=== PATIENT | male | born 1955 | race Caucasian/White ===

== ENCOUNTER 2016-11-12 07:18 | Emergency (ER) | payer MEDICAID, OTHER ==
[~2016-11-12] VITALS: Ht 182.9 cm; Wt 86.4 kg
[~2016-11-12 07:18] MED LIST: DIVA250T25 PO; HYDR25TA PO
[2016-11-12] MEDS ORDERED: METH10 PO (07:22)
[2016-11-12] MEDS ORDERED: METHADONE HCL 10 MG TABLET PO ONE (08:00)
[2016-11-12 08:17] LABS: BASOPHILS # (AUTO) 0.02 K/uL (0.00-0.20); BASOPHILS % (AUTO) 0.4 % (0.0-2.0); EOSINOPHILS # (AUTO) 0.16 K/uL (0.00-0.70); EOSINOPHILS % (AUTO) 2.46 % (1.0-6.0); HEMATOCRIT 38.8 % (41-53); HEMOGLOBIN 12.4 g/dL (13.5-17.5); LYMPHOCYTES % (AUTO) 14.7 % (22.0-44.0); MEAN CORPUSCULAR HEMOGLOBIN 27.9 pg (26.0-34.0); MEAN CORPUSCULAR HGB CONC 32.1 G/dL (31.0-37.0); MEAN CORPUSCULAR VOLUME 87 fL (80-100); MONOCYTES # (AUTO) 0.6 K/uL (0.1-1.0); MONOCYTES % (AUTO) 9.5 % (2.0-9.0); NEUTROPHILS # (AUTO) 4.8 K/uL (1.8-7.7); PLATELET COUNT (AUTO) 319 K/uL (150-450); RED BLOOD CELL COUNT(AUTO) 4.46 MIL/uL (4.50-5.90); RED CELL DISTRIBUTION WIDTH 14.9 % (11.5-14.5); WHITE BLOOD COUNT (AUTO) 6.6 K/uL (4.5-11.0)
[2016-11-12 08:21] LABS: ANION GAP 9 mmol/L (8-16); CALCIUM, TOTAL 8.7 mg/dL (8.8-10.5); CARBON DIOXIDE 27 mmol/L (22-29); CHLORIDE 100 mmol/L (98-107); CREATININE 0.82 mg/dL (0.60-1.30); GLOMERULAR FILTR. RATE CALC > 60 mL/min (>60); POTASSIUM 3.7 mmol/L (3.5-5.1); SODIUM SERUM 136 mmol/L (136-145); UREA NITROGEN, BLOOD 16 mg/dL (7-18)
[2016-11-12 08:32] LABS: ALANINE AMINOTRANSFERASE 22 U/L (12-78); ALBUMIN 3.1 g/dL (3.4-5.0); ASPARTATE AMINOTRANSFERASE 19 U/L (15-37); BILIRUBIN,TOTAL 0.3 mg/dL (0.1-1.0); TOTAL PROTEIN, SERUM 7.4 g/dL (6.4-8.2); VALPROIC ACID 52 mcg/mL (50-100)
[2016-11-12] MEDS ORDERED: DIVALPROEX SODIUM 250 MG DR TABLET PO ONE (09:15)
[2016-11-12 09:21] LABS: ADD UA MICROSCOPIC NO; APPEARANCE,URINE CLEAR (CLEAR); GLUCOSE, URINE (UA) NEGATIVE (NEGATIVE); KETONES,URINE NEGATIVE (NEGATIVE); LEUKOCYTE ESTERASE ,URINE NEGATIVE (NEGATIVE); OCCULT BLOOD,URINE NEGATIVE (NEGATIVE); PH,URINE 6.5 (5.0-8.0); PROTEIN,URINE NEGATIVE (NEGATIVE)
[2016-11-12 09:23] VITALS: BP 164/92
== END 2016-11-12 09:42 | disposition home or self-care (01) ==
LOC: EMS 07:19
DX: R56.9 Unspecified convulsions (principal); G89.29 Other chronic pain; I10 Essential (primary) hypertension; F17.210 Nicotine dependence, cigarettes, uncomplicated; Z88.0 Allergy status to penicillin
CPT/HCPCS: 99284

== ENCOUNTER 2016-12-04 11:45 | Emergency (ER) | payer OTHER ==
[~2016-12-04] VITALS: Ht 182.9 cm; Wt 90.9 kg
[~2016-12-04 11:45] MED LIST changes: +METH10 PO
[2016-12-04] MEDS ORDERED: SODIUM CHLORIDE 0.9% 1,000 ML IV ONE (13:15)
[2016-12-04 13:42] LABS: BASOPHILS % (AUTO) 0.5 % (0.0-2.0); EOSINOPHILS % (AUTO) 2.2 % (1.0-6.0); HEMATOCRIT 33.5 % (41-53); HEMOGLOBIN 11.3 g/dL (13.5-17.5); LYMPHOCYTES # (AUTO) 0.9 K/uL (1.0-4.8); MEAN CORPUSCULAR HEMOGLOBIN 28.6 pg (26.0-34.0); MEAN CORPUSCULAR HGB CONC 33.6 G/dL (31.0-37.0); MEAN CORPUSCULAR VOLUME 85 fL (80-100); MONOCYTES # (AUTO) 0.5 K/uL (0.1-1.0); MONOCYTES % (AUTO) 7.8 % (2.0-9.0); NEUTROPHILS # (AUTO) 4.6 K/uL (1.8-7.7); NEUTROPHILS % (AUTO) 74.5 % (40.0-70.0); PLATELET COUNT (AUTO) 175 K/uL (150-450); RED BLOOD CELL COUNT(AUTO) 3.94 MIL/uL (4.50-5.90); RED CELL DISTRIBUTION WIDTH 15.9 % (11.5-14.5); WHITE BLOOD COUNT (AUTO) 6.1 K/uL (4.5-11.0)
[2016-12-04 13:51] LABS: ANION GAP 10 mmol/L (8-16); CALCIUM, TOTAL 8.9 mg/dL (8.8-10.5); CARBON DIOXIDE 27 mmol/L (22-29); CHLORIDE 111 mmol/L (98-107); CREATININE 0.91 mg/dL (0.60-1.30); GLOMERULAR FILTR. RATE CALC > 60 mL/min (>60); POTASSIUM 3.4 mmol/L (3.5-5.1); SODIUM SERUM 148 mmol/L (136-145); UREA NITROGEN, BLOOD 17 mg/dL (7-18)
[2016-12-04 13:53] LABS: PROTHROMBIN TIME 10.9 SEC (9.4-11.6)
[2016-12-04 14:16] LABS: ALANINE AMINOTRANSFERASE 35 U/L (12-78); ALBUMIN 3.6 g/dL (3.4-5.0); ASPARTATE AMINOTRANSFERASE 48 U/L (15-37); BILIRUBIN,TOTAL 0.9 mg/dL (0.1-1.0); CREATINE KINASE MB 23.1 ng/mL (0-5); CREATINE KINASE, TOTAL 1359 U/L (39-308)
[2016-12-04 16:37] LABS: APPEARANCE,URINE CLEAR (CLEAR); GLUCOSE, URINE (UA) NEGATIVE (NEGATIVE); KETONES,URINE NEGATIVE (NEGATIVE); LEUKOCYTE ESTERASE ,URINE NEGATIVE (NEGATIVE); OCCULT BLOOD,URINE NEGATIVE (NEGATIVE); PH,URINE 5.5 (5.0-8.0); PROTEIN,URINE NEGATIVE (NEGATIVE)
[2016-12-04 16:38] LABS: ADD UA MICROSCOPIC NO
[2016-12-04 16:45] VITALS: BP 169/89
== END 2016-12-04 17:32 | disposition home or self-care (01) ==
LOC: EMS 11:46
DX: S09.90XA Unspecified injury of head, initial encounter (principal); F17.210 Nicotine dependence, cigarettes, uncomplicated; I10 Essential (primary) hypertension; Z88.0 Allergy status to penicillin; W19.XXXA Unspecified fall, initial encounter; Y93.89 Activity, other specified; Y92.89 Other specified places as the place of occurrence of the external cause; Y99.8 Other external cause status
CPT/HCPCS: 36415; 70450; 72125; 80053; 80307; 81003; 82550; 82553; 85025; 85610; 85730; 93005; 96360; 99285; G0480; J7030

== ENCOUNTER 2017-02-17 10:55 | Inpatient (IN) | payer MEDICAID, OTHER ==
[~2017-02-17] VITALS: Ht 182.9 cm; Wt 85.2 kg
[~2017-02-17 10:55] MED LIST changes: +CLON-570 PO; -DIVA250T25 PO; +DULO60CA44 PO; +FERR325T22 PO; +GABA-531 PO; -HYDR25TA PO; -METH10 PO; +MIRT30 PO; +MVITFE PO
[2017-02-17 11:51] LABS: BASOPHILS % (AUTO) 0.4 % (0.0-2.0); EOSINOPHILS % (AUTO) 1.4 % (1.0-6.0); HEMATOCRIT 28.6 % (41-53); HEMOGLOBIN 9.5 g/dL (13.5-17.5); LYMPHOCYTES # (AUTO) 0.7 K/uL (1.0-4.8); LYMPHOCYTES % (AUTO) 11.5 % (22.0-44.0); MEAN CORPUSCULAR HEMOGLOBIN 28.6 pg (26.0-34.0); MEAN CORPUSCULAR HGB CONC 33.2 G/dL (31.0-37.0); MEAN CORPUSCULAR VOLUME 86 fL (80-100); MONOCYTES # (AUTO) 0.3 K/uL (0.1-1.0); MONOCYTES % (AUTO) 4.6 % (2.0-9.0); NEUTROPHILS # (AUTO) 5.3 K/uL (1.8-7.7); NEUTROPHILS % (AUTO) 82.1 % (40.0-70.0); PLATELET COUNT (AUTO) 304 K/uL (150-450); RED BLOOD CELL COUNT(AUTO) 3.32 MIL/uL (4.50-5.90); RED CELL DISTRIBUTION WIDTH 15.4 % (11.5-14.5); WHITE BLOOD COUNT (AUTO) 6.5 K/uL (4.5-11.0)
[2017-02-17 12:06] LABS: ANION GAP 7 mmol/L (8-16); CALCIUM, TOTAL 8.3 mg/dL (8.8-10.5); CARBON DIOXIDE 26 mmol/L (22-29); CHLORIDE 109 mmol/L (98-107); CREATININE 0.88 mg/dL (0.60-1.30); GLOMERULAR FILTR. RATE CALC > 60 mL/min (>60); POTASSIUM 3.3 mmol/L (3.5-5.1); SODIUM SERUM 142 mmol/L (136-145); UREA NITROGEN, BLOOD 11 mg/dL (7-18)
[2017-02-17 12:11] LABS: ALANINE AMINOTRANSFERASE 31 U/L (12-78); ALBUMIN 3.2 g/dL (3.4-5.0); ASPARTATE AMINOTRANSFERASE 22 U/L (15-37); BILIRUBIN,TOTAL 0.4 mg/dL (0.1-1.0); TOTAL PROTEIN, SERUM 6.5 g/dL (6.4-8.2)
[2017-02-17] MEDS ORDERED: CloNIDine HCL 0.1 MG TABLET PO ONE (14:30)
[2017-02-17] MEDS ORDERED: MAG HYDROX/AL HYDROX/SIMETH ES 30 ML SUSPENSION UDCUP PO PRN (15:00)
[2017-02-17] MEDS ORDERED: GuaiFENesin/D-METHORPHAN [SUGAR-FREE] 200-20MG/10 ML SYRUP UDCUP PO PRN (15:00)
[2017-02-17] MEDS ORDERED: CloNIDine HCL 0.1 MG TABLET PO PRN (15:00)
[2017-02-17] MEDS ORDERED: HydrOXYzine PAMOATE 50 MG CAPSULE PO PRN (15:00)
[2017-02-17] MEDS ORDERED: IBUPROFEN 600 MG TABLET PO PRN (15:00)
[2017-02-17] MEDS ORDERED: CYANOCOBALAMIN 1,000 MCG/ML VIAL IM ONE (15:00)
[2017-02-17] MEDS ORDERED: PROMETHAZINE HCL 25 MG/ML VIAL IM PRN (15:00)
[2017-02-17] MEDS ORDERED: LOPERAMIDE HCL 2 MG CAPSULE PO PRN (15:00)
[2017-02-17 16:25] VITALS: BP 151/79
[2017-02-17] MEDS: DULoxetine HCL 60 MG CAPSULE PO SCH (17:14)
[2017-02-17] MEDS: CloNIDine HCL 0.1 MG TABLET PO SCH ×2 (17:14→22:02)
[2017-02-17] MEDS: THIAMINE HCL 100 MG TABLET PO SCH (17:14)
[2017-02-17 17:25] VITALS: BP 140/80
[2017-02-17 18:32] VITALS: BP 145/70
[2017-02-17] MEDS: MIRTAZAPINE 30 MG TABLET PO SCH (20:14)
[2017-02-17 20:20] VITALS: BP 134/94
[2017-02-17] MEDS: HydrOXYzine PAMOATE 50 MG CAPSULE PO PRN (20:58)
[2017-02-17] MEDS ORDERED: GABAPENTIN 300 MG CAPSULE PO ONE (21:45)
[2017-02-17 22:00] VITALS: BP 175/79
[2017-02-18 00:45] VITALS: BP 147/77
[2017-02-18] MEDS: CloNIDine HCL 0.1 MG TABLET PO SCH ×4 (06:20→22:03)
[2017-02-18] MEDS ORDERED: POTASSIUM CHLORIDE 20 MEQ ER TABLET PO ONE (07:15)
[2017-02-18 08:44] VITALS: BP 153/83
[2017-02-18 08:45] VITALS: BP 153/83
[2017-02-18] MEDS: GABAPENTIN 300 MG CAPSULE PO SCH ×4 (09:51→20:40)
[2017-02-18] MEDS: MULTIVITAMINS WITH MINERALS, THERAPEUTIC TABLET PO SCH (09:52)
[2017-02-18] MEDS: DULoxetine HCL 60 MG CAPSULE PO SCH ×2 (09:52→16:03)
[2017-02-18] MEDS: THIAMINE HCL 100 MG TABLET PO SCH ×2 (09:52→16:36)
[2017-02-18] MEDS: SULFAMETHOX/TRIMETH DS 800-160 MG/TABLET PO SCH ×2 (09:52→16:03)
[2017-02-18] MEDS: DOXYCYCLINE 100 MG CAPSULE PO SCH ×2 (09:52→16:03)
[2017-02-18] MEDS: FOLIC ACID 1 MG TABLET PO SCH (09:52)
[2017-02-18 12:30] VITALS: BP 160/88
[2017-02-18 14:30] VITALS: BP 126/86
[2017-02-18 16:12] VITALS: BP 144/88
[2017-02-18] MEDS: MIRTAZAPINE 30 MG TABLET PO SCH (20:40)
[2017-02-19 01:20] VITALS: BP 141/83
[2017-02-19 01:21] VITALS: BP 141/83
[2017-02-19] MEDS: CloNIDine HCL 0.1 MG TABLET PO SCH ×4 (05:50→21:06)
[2017-02-19 08:35] VITALS: BP 146/81
[2017-02-19] MEDS: DOXYCYCLINE 100 MG CAPSULE PO SCH ×2 (08:59→17:17)
[2017-02-19] MEDS: THIAMINE HCL 100 MG TABLET PO SCH ×2 (08:59→17:17)
[2017-02-19] MEDS: GABAPENTIN 300 MG CAPSULE PO SCH ×4 (08:59→20:50)
[2017-02-19] MEDS: DULoxetine HCL 60 MG CAPSULE PO SCH ×2 (08:59→17:16)
[2017-02-19] MEDS: FOLIC ACID 1 MG TABLET PO SCH (08:59)
[2017-02-19] MEDS: SULFAMETHOX/TRIMETH DS 800-160 MG/TABLET PO SCH ×2 (08:59→17:17)
[2017-02-19] MEDS: MULTIVITAMINS WITH MINERALS, THERAPEUTIC TABLET PO SCH (08:59)
[2017-02-19 09:03] VITALS: BP 146/81
[2017-02-19 16:24] VITALS: BP 140/86
[2017-02-19 16:27] VITALS: BP 140/86
[2017-02-19] MEDS ORDERED: CloNIDine HCL 0.1 MG TABLET PO SCH (17:00)
[2017-02-19] MEDS: LevETIRAcetam 500 MG TABLET PO SCH (17:17)
[2017-02-19] MEDS: MIRTAZAPINE 30 MG TABLET PO SCH (20:50)
[2017-02-19] MEDS: HydrOXYzine PAMOATE 50 MG CAPSULE PO PRN (21:48)
[2017-02-20 00:52] VITALS: BP 130/75
[2017-02-20 00:53] VITALS: BP 130/75
[2017-02-20 06:00] VITALS: BP 140/72
[2017-02-20] MEDS: FERROUS SULFATE 325 MG EC TABLET PO SCH (06:37)
[2017-02-20] MEDS: CloNIDine HCL 0.1 MG TABLET PO SCH ×4 (06:37→22:01)
[2017-02-20 08:00] VITALS: BP 136/78
[2017-02-20 08:17] VITALS: BP 136/78
[2017-02-20] MEDS: DOXYCYCLINE 100 MG CAPSULE PO SCH ×2 (08:55→16:02)
[2017-02-20] MEDS: GABAPENTIN 300 MG CAPSULE PO SCH ×4 (08:55→20:36)
[2017-02-20] MEDS: FOLIC ACID 1 MG TABLET PO SCH (08:56)
[2017-02-20] MEDS: THIAMINE HCL 100 MG TABLET PO SCH ×2 (08:56→16:02)
[2017-02-20] MEDS: SULFAMETHOX/TRIMETH DS 800-160 MG/TABLET PO SCH ×2 (08:56→16:02)
[2017-02-20] MEDS: LevETIRAcetam 500 MG TABLET PO SCH ×2 (08:56→16:02)
[2017-02-20] MEDS: DULoxetine HCL 60 MG CAPSULE PO SCH ×2 (08:56→16:02)
[2017-02-20] MEDS: MULTIVITAMINS WITH MINERALS, THERAPEUTIC TABLET PO SCH (08:57)
[2017-02-20 16:00] VITALS: BP 140/79
[2017-02-20] MEDS: MIRTAZAPINE 30 MG TABLET PO SCH (20:36)
[2017-02-21 01:13] VITALS: BP 140/72
[2017-02-21 03:55] VITALS: BP 149/112
[2017-02-21] MEDS: HydrOXYzine PAMOATE 50 MG CAPSULE PO PRN (03:56)
[2017-02-21 06:02] VITALS: BP 147/96
[2017-02-21] MEDS: FERROUS SULFATE 325 MG EC TABLET PO SCH (06:24)
[2017-02-21] MEDS: CloNIDine HCL 0.1 MG TABLET PO SCH ×4 (06:24→21:03)
[2017-02-21] MEDS: FOLIC ACID 1 MG TABLET PO SCH (08:39)
[2017-02-21] MEDS: DOXYCYCLINE 100 MG CAPSULE PO SCH ×2 (08:39→16:27)
[2017-02-21] MEDS: SULFAMETHOX/TRIMETH DS 800-160 MG/TABLET PO SCH ×2 (08:39→16:27)
[2017-02-21] MEDS: LevETIRAcetam 500 MG TABLET PO SCH ×2 (08:40→16:27)
[2017-02-21] MEDS: THIAMINE HCL 100 MG TABLET PO SCH ×2 (08:40→16:27)
[2017-02-21] MEDS: GABAPENTIN 300 MG CAPSULE PO SCH ×4 (08:40→20:30)
[2017-02-21] MEDS: DULoxetine HCL 60 MG CAPSULE PO SCH ×2 (08:40→16:27)
[2017-02-21] MEDS: MULTIVITAMINS WITH MINERALS, THERAPEUTIC TABLET PO SCH (08:40)
[2017-02-21 08:52] VITALS: BP 128/84
[2017-02-21 17:00] VITALS: BP 115/68
[2017-02-21] MEDS: MIRTAZAPINE 30 MG TABLET PO SCH (20:30)
[2017-02-22 00:13] VITALS: BP 139/95
[2017-02-22 00:14] VITALS: BP 139/95
[2017-02-22 05:55] VITALS: BP 140/88
[2017-02-22] MEDS: CloNIDine HCL 0.1 MG TABLET PO SCH ×2 (06:07→12:46)
[2017-02-22] MEDS: FERROUS SULFATE 325 MG EC TABLET PO SCH (08:25)
[2017-02-22] MEDS: MULTIVITAMINS WITH MINERALS, THERAPEUTIC TABLET PO SCH (08:38)
[2017-02-22] MEDS: FOLIC ACID 1 MG TABLET PO SCH (08:39)
[2017-02-22] MEDS: GABAPENTIN 300 MG CAPSULE PO SCH ×2 (08:39→12:47)
[2017-02-22 08:42] VITALS: BP 135/77
[2017-02-22] MEDS: LevETIRAcetam 500 MG TABLET PO SCH (09:02)
[2017-02-22] MEDS: THIAMINE HCL 100 MG TABLET PO SCH (09:02)
[2017-02-22] MEDS: DOXYCYCLINE 100 MG CAPSULE PO SCH (09:02)
[2017-02-22] MEDS: DULoxetine HCL 60 MG CAPSULE PO SCH (09:02)
[2017-02-22] MEDS: SULFAMETHOX/TRIMETH DS 800-160 MG/TABLET PO SCH (09:02)
[2017-02-22] MEDS ORDERED: SULF1TAB42 PO (14:05)
[2017-02-22] MEDS ORDERED: LEVE500T53 PO (14:05)
[2017-02-22] MEDS ORDERED: DOXY100C PO (14:05)
[2017-02-22 14:32] VITALS: BP 135/77
== END 2017-02-22 14:15 | disposition home or self-care (01) | DRG 751 ==
LOC: EEVIPCON 10:59 → EMS 10:59 → B2S 15:30
PROVIDERS: ADMIT Psychiatry & Neurology Psychiatry; ATTEND Psychiatry & Neurology Psychiatry
DX: F33.2 Major depressive disorder, recurrent severe without psychotic features (principal); R45.851 Suicidal ideations; F11.20 Opioid dependence, uncomplicated; D64.9 Anemia, unspecified; I10 Essential (primary) hypertension; S50.312A Abrasion of left elbow, initial encounter; G40.909 Epilepsy, unspecified, not intractable, without status epilepticus; F41.9 Anxiety disorder, unspecified; F17.210 Nicotine dependence, cigarettes, uncomplicated; Z88.0 Allergy status to penicillin; Z59.0 Homelessness; Z80.9 Family history of malignant neoplasm, unspecified; Z91.5 Personal history of self-harm; F12.90 Cannabis use, unspecified, uncomplicated; R45.87 Impulsiveness; X58.XXXA Exposure to other specified factors, initial encounter; Y93.89 Activity, other specified; Y92.89 Other specified places as the place of occurrence of the external cause; Y99.8 Other external cause status
CPT/HCPCS: 84132; 87081; 96372; 99285; G0480; J3420

== ENCOUNTER 2017-03-26 14:31 | Emergency (ER) | payer MEDICAID, OTHER ==
[~2017-03-26] VITALS: Ht 182.9 cm; Wt 90.0 kg
[~2017-03-26 14:31] MED LIST changes: +DOXY100C PO; -FERR325T22 PO; +LEVE500T53 PO; -MVITFE PO; +SULF1TAB42 PO
[2017-03-26 15:12] LABS: BASOPHILS % (AUTO) 0.1 % (0.0-2.0); EOSINOPHILS % (AUTO) 5.5 % (1.0-6.0); HEMATOCRIT 30.2 % (41-53); HEMOGLOBIN 9.9 g/dL (13.5-17.5); LYMPHOCYTES # (AUTO) 1.2 K/uL (1.0-4.8); LYMPHOCYTES % (AUTO) 17.6 % (22.0-44.0); MEAN CORPUSCULAR HEMOGLOBIN 26.3 pg (26.0-34.0); MEAN CORPUSCULAR HGB CONC 32.9 G/dL (31.0-37.0); MEAN CORPUSCULAR VOLUME 80 fL (80-100); MONOCYTES # (AUTO) 0.6 K/uL (0.1-1.0); MONOCYTES % (AUTO) 8.9 % (2.0-9.0); NEUTROPHILS # (AUTO) 4.5 K/uL (1.8-7.7); NEUTROPHILS % (AUTO) 67.9 % (40.0-70.0); PLATELET COUNT (AUTO) 313 K/uL (150-450); RED BLOOD CELL COUNT(AUTO) 3.77 MIL/uL (4.50-5.90); RED CELL DISTRIBUTION WIDTH 16.8 % (11.5-14.5)
[2017-03-26 15:24] LABS: ANION GAP 7 mmol/L (8-16); CARBON DIOXIDE 29 mmol/L (22-29); CHLORIDE 106 mmol/L (98-107); CREATININE 0.84 mg/dL (0.60-1.30); GLOMERULAR FILTR. RATE CALC > 60 mL/min (>60); GLUCOSE,RANDOM 91 mg/dL (70-110); SODIUM SERUM 142 mmol/L (136-145); UREA NITROGEN, BLOOD 14 mg/dL (7-18)
[2017-03-26 15:29] LABS: ALANINE AMINOTRANSFERASE 27 U/L (12-78); ALBUMIN 3.2 g/dL (3.4-5.0); ALKALINE PHOSPHATASE 91 U/L (46-116); ASPARTATE AMINOTRANSFERASE 28 U/L (15-37); BILIRUBIN,TOTAL 0.5 mg/dL (0.1-1.0); TOTAL PROTEIN, SERUM 6.8 g/dL (6.4-8.2)
[2017-03-26 17:07] LABS: AMPHET/METH SCREEN,URINE NEGATIVE (NEGATIVE); BARBITURATE SCREEN, URINE NEGATIVE (NEGATIVE); BENZODIAZEPINES SCREEN,URINE POSITIVE (NEGATIVE); CANNABINOID SCREEN,URINE POSITIVE (NEGATIVE); COCAINE SCREEN,URINE NEGATIVE (NEGATIVE); METHADONE SCREEN, URINE POSITIVE (NEGATIVE); OPIATE SCREEN,URINE NEGATIVE (NEGATIVE)
[2017-03-26 17:09] LABS: PHENCYCLIDINE SCREEN,URINE NEGATIVE (NEGATIVE)
[2017-03-26 17:25] VITALS: BP 145/90
== END 2017-03-26 18:03 | disposition home or self-care (01) ==
LOC: EMS 14:31
DX: F43.9 Reaction to severe stress, unspecified (principal); F12.10 Cannabis abuse, uncomplicated; F41.9 Anxiety disorder, unspecified; I10 Essential (primary) hypertension; F17.210 Nicotine dependence, cigarettes, uncomplicated; Z88.0 Allergy status to penicillin
CPT/HCPCS: 36415; 80053; 80307; 85025; 99284; G0480

== ENCOUNTER 2017-05-08 16:52 | Inpatient (IN) | payer MEDICAID, OTHER ==
[~2017-05-08] VITALS: Ht 188 cm; Wt 93.0 kg
[2017-05-08 20:24] VITALS: BP 157/94
[2017-05-08] MEDS ORDERED: DIVALPROEX SODIUM 500 MG DR TABLET PO SCH (21:00)
[2017-05-08] MEDS: MIRTAZAPINE 15 MG TABLET PO SCH (21:46)
[2017-05-08] MEDS: CloNIDine HCL 0.1 MG TABLET PO SCH (21:46)
[2017-05-08 21:59] VITALS: BP 193/103
[2017-05-08 22:26] VITALS: BP 150/94
[2017-05-09 02:32] VITALS: BP 138/72
[2017-05-09 07:53] LABS: BASOPHILS % (AUTO) 0.4 % (0.0-2.0); HEMATOCRIT 32.2 % (41-53); HEMOGLOBIN 10.6 g/dL (13.5-17.5); LYMPHOCYTES # (AUTO) 1.9 K/uL (1.0-4.8); LYMPHOCYTES % (AUTO) 34.5 % (22.0-44.0); MEAN CORPUSCULAR HEMOGLOBIN 25.3 pg (26.0-34.0); MEAN CORPUSCULAR HGB CONC 32.9 G/dL (31.0-37.0); MEAN CORPUSCULAR VOLUME 77 fL (80-100); MONOCYTES # (AUTO) 0.6 K/uL (0.1-1.0); MONOCYTES % (AUTO) 11.2 % (2.0-9.0); NEUTROPHILS # (AUTO) 2.9 K/uL (1.8-7.7); NEUTROPHILS % (AUTO) 51.9 % (40.0-70.0); PLATELET COUNT (AUTO) 247 K/uL (150-450); RED BLOOD CELL COUNT(AUTO) 4.19 MIL/uL (4.50-5.90); RED CELL DISTRIBUTION WIDTH 19.2 % (11.5-14.5)
[2017-05-09 08:47] VITALS: BP 127/84
[2017-05-09 09:02] LABS: ALANINE AMINOTRANSFERASE 29 U/L (12-78); ALBUMIN 2.5 g/dL (3.4-5.0); ALKALINE PHOSPHATASE 64 U/L (46-116); ANION GAP 4 mmol/L (8-16); ASPARTATE AMINOTRANSFERASE 23 U/L (15-37); BILIRUBIN,TOTAL 0.4 mg/dL (0.1-1.0); CALCIUM, TOTAL 8.1 mg/dL (8.8-10.5); CARBON DIOXIDE 32 mmol/L (22-29); CHLORIDE 106 mmol/L (98-107); CHOL/HDL RATIO 3.7 (4.2-7.3); CHOLESTEROL 132 mg/dL (131-200); CREATININE 0.97 mg/dL (0.60-1.30); FREE T4 (FREE THYROXINE) 1.12 ng/dL (0.76-1.46); GLOMERULAR FILTR. RATE CALC > 60 mL/min (>60); GLUCOSE,RANDOM 80 mg/dL (70-110); HDL CHOLESTEROL 36 mg/dL (40-60); LDL CHOL (CALC.) 86 mg/dL (0-130); POTASSIUM 3.8 mmol/L (3.5-5.1); SODIUM SERUM 142 mmol/L (136-145); THYROID STIMULATING HORMONE 2.09 uIU/mL (0.36-3.74); TOTAL PROTEIN, SERUM 5.7 g/dL (6.4-8.2); TRIGLYCERIDES 48 mg/dL (15-150); UREA NITROGEN, BLOOD 15 mg/dL (7-18)
[2017-05-09] MEDS ORDERED: MAGNESIUM HYDROXIDE SUSPENSION 30 ML UDCUP PO PRN (09:15)
[2017-05-09] MEDS ORDERED: LOPERAMIDE HCL 2 MG CAPSULE PO PRN (09:15)
[2017-05-09] MEDS ORDERED: TUBERCULIN, PURIFIED PROTEIN DERIVATIVE 5 TU/0.1 ML SYG ID ONE (09:15)
[2017-05-09] MEDS ORDERED: ACETAMINOPHEN 325 MG TABLET PO PRN (09:15)
[2017-05-09] MEDS ORDERED: GuaiFENesin/D-METHORPHAN [SUGAR-FREE] 200-20MG/10 ML SYRUP UDCUP PO PRN (09:15)
[2017-05-09] MEDS ORDERED: PROMETHAZINE HCL 25 MG TABLET PO PRN (09:15)
[2017-05-09] MEDS ORDERED: MAG HYDROX/AL HYDROX/SIMETH ES 30 ML SUSPENSION UDCUP PO PRN (09:15)
[2017-05-09] MEDS: DULoxetine HCL 20 MG CAPSULE PO SCH (09:27)
[2017-05-09] MEDS: CloNIDine HCL 0.1 MG TABLET PO SCH ×2 (09:27→16:10)
[2017-05-09 09:56] LABS: HEMOGLOBIN A1C 6.1 % (4.5-6.2)
[2017-05-09] MEDS: METHADONE HCL 10 MG TABLET PO SCH (11:09)
[2017-05-09] MEDS: LORazepam 2 MG TABLET PO PRN ×2 (11:10→16:19)
[2017-05-09 11:13] VITALS: BP 157/91
[2017-05-09] MEDS: ACAMPROSATE CALCIUM 333 MG DR TABLET PO SCH ×2 (13:42→16:10)
[2017-05-09] MEDS: GABAPENTIN 300 MG CAPSULE PO SCH ×2 (16:11→20:22)
[2017-05-09] MEDS: THIAMINE HCL 100 MG TABLET PO SCH (16:11)
[2017-05-09 16:26] VITALS: BP 142/87
[2017-05-09] MEDS ORDERED: GABAPENTIN 300 MG CAPSULE PO SCH (17:00)
[2017-05-09] MEDS: MIRTAZAPINE 15 MG TABLET PO SCH (20:22)
[2017-05-10 00:36] VITALS: BP 133/69
[2017-05-10] MEDS: ACAMPROSATE CALCIUM 333 MG DR TABLET PO SCH ×3 (08:25→16:05)
[2017-05-10] MEDS: CloNIDine HCL 0.1 MG TABLET PO SCH ×2 (08:25→16:05)
[2017-05-10] MEDS: GABAPENTIN 300 MG CAPSULE PO SCH ×3 (08:25→16:05)
[2017-05-10] MEDS: MULTIVITAMINS WITH MINERALS, THERAPEUTIC TABLET PO SCH (08:25)
[2017-05-10] MEDS: METHADONE HCL 10 MG TABLET PO SCH (08:25)
[2017-05-10] MEDS: DULoxetine HCL 20 MG CAPSULE PO SCH (08:25)
[2017-05-10] MEDS: THIAMINE HCL 100 MG TABLET PO SCH ×2 (08:25→16:05)
[2017-05-10 08:47] VITALS: BP 117/65
[2017-05-10] MEDS ORDERED: NALTREXONE HCL 50 MG TABLET PO SCH (09:00)
[2017-05-10 16:13] VITALS: BP 138/74
[2017-05-10] MEDS: MIRTAZAPINE 30 MG TABLET PO SCH (20:19)
[2017-05-10] MEDS: GABAPENTIN 400 MG CAPSULE PO SCH (20:21)
[2017-05-11 02:36] VITALS: BP 120/68
[2017-05-11] MEDS: ZOLPIDEM TARTRATE 10 MG TABLET PO PRN ×2 (02:38→20:49)
[2017-05-11 08:36] VITALS: BP 138/91
[2017-05-11] MEDS: THIAMINE HCL 100 MG TABLET PO SCH ×2 (08:38→16:02)
[2017-05-11] MEDS: METHADONE HCL 10 MG TABLET PO SCH (08:38)
[2017-05-11] MEDS: CloNIDine HCL 0.1 MG TABLET PO SCH ×2 (08:38→16:02)
[2017-05-11] MEDS: GABAPENTIN 400 MG CAPSULE PO SCH ×4 (08:38→20:02)
[2017-05-11] MEDS: MULTIVITAMINS WITH MINERALS, THERAPEUTIC TABLET PO SCH (08:38)
[2017-05-11] MEDS: DULoxetine HCL 20 MG CAPSULE PO SCH (08:38)
[2017-05-11] MEDS: ACAMPROSATE CALCIUM 333 MG DR TABLET PO SCH ×3 (08:39→16:21)
[2017-05-11] MEDS: HydrOXYzine PAMOATE 50 MG CAPSULE PO PRN ×2 (10:08→16:21)
[2017-05-11] MEDS: OLANZapine 5 MG RAPDIS TABLET PO PRN (10:09)
[2017-05-11 16:35] VITALS: BP 158/88
[2017-05-11] MEDS: AmLODIPine BESYLATE 10 MG TABLET PO SCH (18:08)
[2017-05-11] MEDS: MIRTAZAPINE 30 MG TABLET PO SCH (20:02)
[2017-05-11 21:53] VITALS: BP 146/67
[2017-05-12 00:39] VITALS: BP 134/74
[2017-05-12] MEDS: GABAPENTIN 400 MG CAPSULE PO SCH ×4 (08:04→20:13)
[2017-05-12] MEDS: MULTIVITAMINS WITH MINERALS, THERAPEUTIC TABLET PO SCH (08:05)
[2017-05-12] MEDS: ACAMPROSATE CALCIUM 333 MG DR TABLET PO SCH ×3 (08:05→16:12)
[2017-05-12] MEDS: AmLODIPine BESYLATE 10 MG TABLET PO SCH (08:05)
[2017-05-12] MEDS: THIAMINE HCL 100 MG TABLET PO SCH ×2 (08:06→16:11)
[2017-05-12] MEDS: CloNIDine HCL 0.1 MG TABLET PO SCH ×2 (08:06→16:11)
[2017-05-12] MEDS: METHADONE HCL 10 MG TABLET PO SCH (08:06)
[2017-05-12 08:42] VITALS: BP 161/72
[2017-05-12] MEDS ORDERED: DULoxetine HCL 20 MG CAPSULE PO SCH (09:00)
[2017-05-12] MEDS: HydrOXYzine PAMOATE 50 MG CAPSULE PO PRN ×2 (12:08→16:12)
[2017-05-12 16:22] VITALS: BP 126/76
[2017-05-12] MEDS: MIRTAZAPINE 30 MG TABLET PO SCH (20:13)
[2017-05-12] MEDS: ZOLPIDEM TARTRATE 10 MG TABLET PO PRN (20:15)
[2017-05-12] MEDS: OLANZapine 5 MG RAPDIS TABLET PO PRN (21:58)
[2017-05-13 02:14] VITALS: BP 121/70
[2017-05-13 08:04] VITALS: BP 172/76
[2017-05-13] MEDS: ACAMPROSATE CALCIUM 333 MG DR TABLET PO SCH ×3 (08:25→16:15)
[2017-05-13] MEDS: CloNIDine HCL 0.1 MG TABLET PO SCH ×2 (08:26→16:15)
[2017-05-13] MEDS: LISINOPRIL 10 MG TABLET PO SCH (08:26)
[2017-05-13] MEDS: METHADONE HCL 10 MG TABLET PO SCH (08:26)
[2017-05-13] MEDS: AmLODIPine BESYLATE 10 MG TABLET PO SCH (08:26)
[2017-05-13] MEDS: GABAPENTIN 400 MG CAPSULE PO SCH ×4 (08:26→20:30)
[2017-05-13] MEDS: MULTIVITAMINS WITH MINERALS, THERAPEUTIC TABLET PO SCH (08:26)
[2017-05-13] MEDS: DULoxetine HCL 60 MG CAPSULE PO SCH (08:26)
[2017-05-13] MEDS: THIAMINE HCL 100 MG TABLET PO SCH ×2 (08:26→16:15)
[2017-05-13 09:22] VITALS: BP 130/72
[2017-05-13] MEDS: OLANZapine 5 MG RAPDIS TABLET PO PRN (10:54)
[2017-05-13 16:09] VITALS: BP 124/81
[2017-05-13] MEDS: HydrOXYzine PAMOATE 50 MG CAPSULE PO PRN (16:13)
[2017-05-13] MEDS: MIRTAZAPINE 30 MG TABLET PO SCH (20:30)
[2017-05-13] MEDS: ZOLPIDEM TARTRATE 10 MG TABLET PO PRN (20:37)
[2017-05-14 00:01] VITALS: BP 125/80
[2017-05-14] MEDS: GABAPENTIN 300 MG CAPSULE PO PRN ×2 (00:23→05:22)
[2017-05-14] MEDS: OLANZapine 5 MG RAPDIS TABLET PO PRN ×2 (04:09→21:25)
[2017-05-14 05:18] VITALS: BP 148/89
[2017-05-14 08:26] VITALS: BP_SYST 148; BP_SYST 161; BP_DIAS 72; BP_DIAS 87
[2017-05-14] MEDS: MULTIVITAMINS WITH MINERALS, THERAPEUTIC TABLET PO SCH (08:46)
[2017-05-14] MEDS: DULoxetine HCL 60 MG CAPSULE PO SCH (08:46)
[2017-05-14] MEDS: METHADONE HCL 10 MG TABLET PO SCH (08:46)
[2017-05-14] MEDS: GABAPENTIN 400 MG CAPSULE PO SCH ×5 (08:46→21:00)
[2017-05-14] MEDS: AmLODIPine BESYLATE 10 MG TABLET PO SCH (08:46)
[2017-05-14] MEDS: ACAMPROSATE CALCIUM 333 MG DR TABLET PO SCH ×3 (08:46→16:24)
[2017-05-14] MEDS: CloNIDine HCL 0.1 MG TABLET PO SCH ×2 (08:46→16:23)
[2017-05-14] MEDS: LISINOPRIL 10 MG TABLET PO SCH (08:46)
[2017-05-14] MEDS: THIAMINE HCL 100 MG TABLET PO SCH ×2 (08:46→16:24)
[2017-05-14 16:40] VITALS: BP 120/81
[2017-05-14] MEDS: ZOLPIDEM TARTRATE 10 MG TABLET PO PRN (20:07)
[2017-05-14] MEDS: MIRTAZAPINE 30 MG TABLET PO SCH (20:07)
[2017-05-15 01:03] VITALS: BP 149/83
[2017-05-15] MEDS: GABAPENTIN 300 MG CAPSULE PO PRN (01:07)
[2017-05-15 08:30] VITALS: BP 118/72
[2017-05-15] MEDS: METHADONE HCL 10 MG TABLET PO SCH (09:00)
[2017-05-15] MEDS: AmLODIPine BESYLATE 10 MG TABLET PO SCH (09:00)
[2017-05-15] MEDS: DULoxetine HCL 60 MG CAPSULE PO SCH (09:00)
[2017-05-15] MEDS: LISINOPRIL 10 MG TABLET PO SCH (09:01)
[2017-05-15] MEDS: ACAMPROSATE CALCIUM 333 MG DR TABLET PO SCH ×3 (09:01→16:36)
[2017-05-15] MEDS: MULTIVITAMINS WITH MINERALS, THERAPEUTIC TABLET PO SCH (09:01)
[2017-05-15] MEDS: CloNIDine HCL 0.1 MG TABLET PO SCH ×2 (09:01→16:36)
[2017-05-15] MEDS: GABAPENTIN 400 MG CAPSULE PO SCH ×4 (09:01→21:00)
[2017-05-15] MEDS: THIAMINE HCL 100 MG TABLET PO SCH ×2 (09:01→16:36)
[2017-05-15] MEDS: LOPERAMIDE HCL 2 MG CAPSULE PO PRN ×2 (13:39→17:26)
[2017-05-15 16:20] VITALS: BP 113/74
[2017-05-15] MEDS: MIRTAZAPINE 30 MG TABLET PO SCH (20:25)
[2017-05-16 05:53] VITALS: BP 110/68
[2017-05-16 08:37] VITALS: BP 106/61
[2017-05-16] MEDS: LISINOPRIL 10 MG TABLET PO SCH (09:40)
[2017-05-16] MEDS: AmLODIPine BESYLATE 10 MG TABLET PO SCH (09:40)
[2017-05-16] MEDS: MULTIVITAMINS WITH MINERALS, THERAPEUTIC TABLET PO SCH (09:40)
[2017-05-16] MEDS: DULoxetine HCL 60 MG CAPSULE PO SCH (09:41)
[2017-05-16] MEDS: GABAPENTIN 400 MG CAPSULE PO SCH ×4 (09:41→20:26)
[2017-05-16] MEDS: METHADONE HCL 10 MG TABLET PO SCH (09:41)
[2017-05-16] MEDS: CloNIDine HCL 0.1 MG TABLET PO SCH ×2 (09:41→17:03)
[2017-05-16] MEDS: ACAMPROSATE CALCIUM 333 MG DR TABLET PO SCH ×3 (09:41→17:03)
[2017-05-16] MEDS: THIAMINE HCL 100 MG TABLET PO SCH ×2 (09:41→17:03)
[2017-05-16 16:43] VITALS: BP 111/70
[2017-05-16] MEDS: OLANZapine 5 MG RAPDIS TABLET PO PRN (17:03)
[2017-05-16] MEDS: MIRTAZAPINE 15 MG TABLET PO SCH (20:26)
[2017-05-16] MEDS: ZOLPIDEM TARTRATE 10 MG TABLET PO PRN (20:26)
[2017-05-17 06:08] VITALS: BP 135/85
[2017-05-17] MEDS: AmLODIPine BESYLATE 10 MG TABLET PO SCH (08:19)
[2017-05-17] MEDS: ACAMPROSATE CALCIUM 333 MG DR TABLET PO SCH ×3 (08:19→16:18)
[2017-05-17] MEDS: GABAPENTIN 400 MG CAPSULE PO SCH ×4 (08:19→20:20)
[2017-05-17] MEDS: THIAMINE HCL 100 MG TABLET PO SCH ×2 (08:19→16:18)
[2017-05-17] MEDS: METHADONE HCL 10 MG TABLET PO SCH (08:19)
[2017-05-17] MEDS: LISINOPRIL 10 MG TABLET PO SCH (08:19)
[2017-05-17] MEDS: CloNIDine HCL 0.1 MG TABLET PO SCH ×2 (08:19→16:18)
[2017-05-17] MEDS: MULTIVITAMINS WITH MINERALS, THERAPEUTIC TABLET PO SCH (08:19)
[2017-05-17] MEDS: DULoxetine HCL 60 MG CAPSULE PO SCH (08:19)
[2017-05-17 08:57] VITALS: BP 144/69
[2017-05-17] MEDS ORDERED: GABA-533 PO (13:30)
[2017-05-17] MEDS ORDERED: ACAM333T7 PO (13:30)
[2017-05-17] MEDS ORDERED: MIRT15 PO (13:30)
[2017-05-17] MEDS ORDERED: DULO60CA44 PO (13:30)
[2017-05-17 16:00] VITALS: BP 141/73
[2017-05-17] MEDS: MIRTAZAPINE 15 MG TABLET PO SCH (20:20)
[2017-05-17] MEDS: ZOLPIDEM TARTRATE 10 MG TABLET PO PRN (20:21)
[2017-05-18] MEDS: OLANZapine 5 MG RAPDIS TABLET PO PRN (00:55)
[2017-05-18 06:20] VITALS: BP 143/71
[2017-05-18 08:22] VITALS: BP 157/83
[2017-05-18] MEDS: MULTIVITAMINS WITH MINERALS, THERAPEUTIC TABLET PO SCH (09:22)
[2017-05-18] MEDS: AmLODIPine BESYLATE 10 MG TABLET PO SCH (09:22)
[2017-05-18] MEDS: DULoxetine HCL 60 MG CAPSULE PO SCH (09:22)
[2017-05-18] MEDS: METHADONE HCL 10 MG TABLET PO SCH (09:22)
[2017-05-18] MEDS: ACAMPROSATE CALCIUM 333 MG DR TABLET PO SCH ×3 (09:23→16:19)
[2017-05-18] MEDS: THIAMINE HCL 100 MG TABLET PO SCH ×2 (09:23→16:19)
[2017-05-18] MEDS: GABAPENTIN 400 MG CAPSULE PO SCH ×4 (09:23→20:07)
[2017-05-18] MEDS: CloNIDine HCL 0.1 MG TABLET PO SCH ×2 (09:23→16:19)
[2017-05-18] MEDS: LISINOPRIL 10 MG TABLET PO SCH (09:23)
[2017-05-18 15:44] VITALS: BP 128/73
[2017-05-18 16:00] VITALS: BP 124/80
[2017-05-18] MEDS: LevETIRAcetam 500 MG TABLET PO SCH (16:19)
[2017-05-18] MEDS: ZOLPIDEM TARTRATE 10 MG TABLET PO PRN (20:07)
[2017-05-18] MEDS: MIRTAZAPINE 15 MG TABLET PO SCH (20:07)
[2017-05-19 02:22] VITALS: BP 120/81
[2017-05-19] MEDS: CloNIDine HCL 0.1 MG TABLET PO SCH ×2 (09:15→16:06)
[2017-05-19] MEDS: ACAMPROSATE CALCIUM 333 MG DR TABLET PO SCH ×3 (09:15→16:06)
[2017-05-19] MEDS: METHADONE HCL 10 MG TABLET PO SCH (09:15)
[2017-05-19] MEDS: GABAPENTIN 400 MG CAPSULE PO SCH ×3 (09:15→16:06)
[2017-05-19] MEDS: THIAMINE HCL 100 MG TABLET PO SCH (09:16)
[2017-05-19] MEDS: MULTIVITAMINS WITH MINERALS, THERAPEUTIC TABLET PO SCH (09:16)
[2017-05-19] MEDS: LISINOPRIL 10 MG TABLET PO SCH (09:16)
[2017-05-19] MEDS: LevETIRAcetam 500 MG TABLET PO SCH ×2 (09:16→16:06)
[2017-05-19] MEDS: AmLODIPine BESYLATE 10 MG TABLET PO SCH (09:16)
[2017-05-19] MEDS: DULoxetine HCL 60 MG CAPSULE PO SCH (09:16)
[2017-05-19] MEDS ORDERED: ACAM333T7 PO (09:44)
[2017-05-19] MEDS ORDERED: GABA-533 PO (09:45)
[2017-05-19] MEDS ORDERED: MIRT15 PO (09:45)
[2017-05-19] MEDS ORDERED: METH10 PO (09:46)
[2017-05-19] MEDS ORDERED: AMLO-512 PO (09:50)
[2017-05-19] MEDS ORDERED: LISI-661 PO (09:51)
[2017-05-19 12:50] VITALS: BP 119/75
== END 2017-05-19 17:56 | disposition home or self-care (01) | DRG 751 ==
LOC: B2S 20:23
PROVIDERS: ADMIT Psychiatry & Neurology Psychiatry; ATTEND Psychiatry & Neurology Psychiatry
DX: F33.2 Major depressive disorder, recurrent severe without psychotic features (principal); R45.851 Suicidal ideations; G62.9 Polyneuropathy, unspecified; Z91.19 Patient's noncompliance with other medical treatment and regimen; F41.9 Anxiety disorder, unspecified; Z88.0 Allergy status to penicillin; Z59.0 Homelessness; H51.8 Other specified disorders of binocular movement; F17.210 Nicotine dependence, cigarettes, uncomplicated; Z87.01 Personal history of pneumonia (recurrent); F10.21 Alcohol dependence, in remission; F19.11 Other psychoactive substance abuse, in remission; I10 Essential (primary) hypertension
CPT/HCPCS: 83036; 84439; 84443; 87081

== ENCOUNTER 2017-06-07 00:06 | Inpatient (IN) | payer MEDICAID ==
[~2017-06-07] VITALS: Ht 182.9 cm; Wt 93.0 kg
[~2017-06-07 00:06] MED LIST changes: +ACAM333T7 PO; +AMLO-512 PO; -DOXY100C PO; -GABA-531 PO; +GABA-533 PO; +LISI-661 PO; +MIRT15 PO; -MIRT30 PO; -SULF1TAB42 PO
[2017-06-07] MEDS ORDERED: LORazepam 2 MG TABLET PO PRN (01:00)
[2017-06-07] MEDS ORDERED: OLANZapine 5 MG RAPDIS TABLET PO PRN (01:00)
[2017-06-07 02:00] VITALS: BP 181/90
[2017-06-07 02:30] VITALS: BP 131/65
[2017-06-07 03:30] VITALS: BP 118/65
[2017-06-07 07:21] VITALS: BP 138/74
[2017-06-07 08:20] VITALS: BP 130/72
[2017-06-07 08:27] LABS: BASOPHILS # (AUTO) 0.02 K/uL (0.00-0.20); BASOPHILS % (AUTO) 0.5 % (0.0-2.0); EOSINOPHILS # (AUTO) 0.14 K/uL (0.00-0.70); EOSINOPHILS % (AUTO) 3.19 % (1.0-6.0); HEMATOCRIT 32.6 % (41-53); HEMOGLOBIN 10.4 g/dL (13.5-17.5); LYMPHOCYTES # (AUTO) 1.3 K/uL (1.0-4.8); LYMPHOCYTES % (AUTO) 29.1 % (22.0-44.0); MEAN CORPUSCULAR HEMOGLOBIN 25.7 pg (26.0-34.0); MEAN CORPUSCULAR HGB CONC 31.9 G/dL (31.0-37.0); MEAN CORPUSCULAR VOLUME 80 fL (80-100); MONOCYTES # (AUTO) 0.5 K/uL (0.1-1.0); MONOCYTES % (AUTO) 10.6 % (2.0-9.0); NEUTROPHILS # (AUTO) 2.5 K/uL (1.8-7.7); NEUTROPHILS % (AUTO) 56.7 % (40.0-70.0); PLATELET COUNT (AUTO) 195 K/uL (150-450); RED BLOOD CELL COUNT(AUTO) 4.05 MIL/uL (4.50-5.90); RED CELL DISTRIBUTION WIDTH 23.6 % (11.5-14.5)
[2017-06-07 09:15] LABS: HEMOGLOBIN A1C 5.8 % (4.5-6.2)
[2017-06-07 09:30] LABS: ALANINE AMINOTRANSFERASE 91 U/L (12-78); ALBUMIN 2.9 g/dL (3.4-5.0); ALKALINE PHOSPHATASE 147 U/L (46-116); ANION GAP 6 mmol/L (8-16); ASPARTATE AMINOTRANSFERASE 115 U/L (15-37); BILIRUBIN,TOTAL 0.4 mg/dL (0.1-1.0); CALCIUM, TOTAL 8.2 mg/dL (8.8-10.5); CARBON DIOXIDE 28 mmol/L (22-29); CHLORIDE 105 mmol/L (98-107); CHOL/HDL RATIO 2.9 (4.2-7.3); CHOLESTEROL 119 mg/dL (131-200); CREATININE 1.14 mg/dL (0.60-1.30); GLOMERULAR FILTR. RATE CALC > 60 mL/min (>60); GLUCOSE,RANDOM 79 mg/dL (70-110); HDL CHOLESTEROL 41 mg/dL (40-60); LDL CHOL (CALC.) 68 mg/dL (0-130); POTASSIUM 3.8 mmol/L (3.5-5.1); SODIUM SERUM 139 mmol/L (136-145); THYROID STIMULATING HORMONE 3.06 uIU/mL (0.36-3.74); TOTAL PROTEIN, SERUM 6.2 g/dL (6.4-8.2); TRIGLYCERIDES 48 mg/dL (15-150); UREA NITROGEN, BLOOD 19 mg/dL (7-18)
[2017-06-07] MEDS: METHADONE HCL 10 MG TABLET PO SCH (18:32)
[2017-06-08] VITALS (7 sets, daily range): BP systolic 147–190; BP diastolic 91–95
[2017-06-08] MEDS: ZOLPIDEM TARTRATE 10 MG TABLET PO PRN (01:19)
[2017-06-08] MEDS: METHADONE HCL 10 MG TABLET PO SCH (08:34)
[2017-06-08] MEDS ORDERED: AmLODIPine BESYLATE 5 MG TABLET PO SCH (09:00)
[2017-06-08] MEDS: LevETIRAcetam 500 MG TABLET PO SCH ×2 (10:45→16:06)
[2017-06-08] MEDS ORDERED: AmLODIPine BESYLATE 5 MG TABLET PO ONE (10:45)
[2017-06-08] MEDS ORDERED: LISINOPRIL 10 MG TABLET PO SCH (10:45)
[2017-06-08] MEDS ORDERED: LISINOPRIL 10 MG TABLET PO ONE ×2 (16:30→21:00)
[2017-06-08] MEDS: GABAPENTIN 400 MG CAPSULE PO SCH (20:42)
[2017-06-09 08:06] VITALS: BP 182/104
[2017-06-09] MEDS ORDERED: LISINOPRIL 10 MG TABLET PO SCH ×2 (09:00→10:45)
[2017-06-09] MEDS: METHADONE HCL 10 MG TABLET PO SCH (09:05)
[2017-06-09] MEDS: GABAPENTIN 400 MG CAPSULE PO SCH ×4 (09:06→20:27)
[2017-06-09] MEDS: LevETIRAcetam 500 MG TABLET PO SCH ×2 (09:07→16:03)
[2017-06-09] MEDS: AmLODIPine BESYLATE 10 MG TABLET PO SCH (09:07)
[2017-06-09] MEDS: LISINOPRIL 20 MG TABLET PO SCH (09:08)
[2017-06-09 16:00] VITALS: BP 143/78
[2017-06-09] MEDS: MUPIROCIN CALCIUM 2% 22 GM OINTMENT TP SCH (16:04)
[2017-06-09] MEDS: ZOLPIDEM TARTRATE 10 MG TABLET PO PRN (20:25)
[2017-06-10 00:57] VITALS: BP 147/84
[2017-06-10] MEDS ORDERED: METH10 PO (02:02)
[2017-06-10 09:24] VITALS: BP 129/76
[2017-06-10] MEDS: GABAPENTIN 400 MG CAPSULE PO SCH ×4 (09:43→20:20)
[2017-06-10] MEDS: LISINOPRIL 20 MG TABLET PO SCH (09:43)
[2017-06-10] MEDS: METHADONE HCL 10 MG TABLET PO SCH (09:43)
[2017-06-10] MEDS: LevETIRAcetam 500 MG TABLET PO SCH ×2 (09:43→16:11)
[2017-06-10] MEDS: AmLODIPine BESYLATE 10 MG TABLET PO SCH (09:43)
[2017-06-10] MEDS: MUPIROCIN CALCIUM 2% 22 GM OINTMENT TP SCH ×2 (09:43→16:12)
[2017-06-10] MEDS ORDERED: ONDANSETRON HCL 4 MG TABLET PO PRN (11:00)
[2017-06-10] MEDS ORDERED: LOPERAMIDE HCL 2 MG CAPSULE PO PRN (11:00)
[2017-06-10 16:00] VITALS: BP 134/71
[2017-06-10 19:25] VITALS: BP 156/98
[2017-06-10] MEDS: ZOLPIDEM TARTRATE 10 MG TABLET PO PRN (23:00)
[2017-06-11] MEDS: GABAPENTIN 400 MG CAPSULE PO SCH ×2 (08:12→13:18)
[2017-06-11] MEDS: AmLODIPine BESYLATE 10 MG TABLET PO SCH (08:12)
[2017-06-11] MEDS: LevETIRAcetam 500 MG TABLET PO SCH (08:12)
[2017-06-11] MEDS: METHADONE HCL 10 MG TABLET PO SCH (08:12)
[2017-06-11] MEDS: LISINOPRIL 20 MG TABLET PO SCH (08:12)
[2017-06-11 11:06] VITALS: BP 155/96
[2017-06-11] MEDS: MUPIROCIN CALCIUM 2% 22 GM OINTMENT TP SCH (11:53)
== END 2017-06-11 13:20 | disposition home or self-care (01) | DRG 750 ==
LOC: B2S 01:12 → EDSTATUS 01:31 → 3EI 06-10 19:00
PROVIDERS: ADMIT Psychiatry & Neurology Psychiatry; ATTEND Psychiatry & Neurology Psychiatry
DX: F25.9 Schizoaffective disorder, unspecified (principal); F22 Delusional disorders; D64.9 Anemia, unspecified; F19.20 Other psychoactive substance dependence, uncomplicated; F11.90 Opioid use, unspecified, uncomplicated; Z88.0 Allergy status to penicillin
CPT/HCPCS: 83036; 84443; 86592; 87081; 99285

== ENCOUNTER 2017-06-08 12:19 | Emergency (ER) | payer MEDICAID, OTHER ==
[~2017-06-08] VITALS: Ht 182.9 cm; Wt 95.0 kg
[2017-06-08] MEDS ORDERED: AmLODIPine BESYLATE 5 MG TABLET PO ONE (13:15)
[2017-06-08] MEDS ORDERED: CloNIDine HCL 0.1 MG TABLET PO ONE (13:15)
[2017-06-08 14:48] VITALS: BP 157/90
== END 2017-06-08 14:58 | disposition home or self-care (01) ==
LOC: EMS 12:21
DX: I10 Essential (primary) hypertension (principal); F32.9 Major depressive disorder, single episode, unspecified; R00.1 Bradycardia, unspecified; F17.210 Nicotine dependence, cigarettes, uncomplicated; F12.90 Cannabis use, unspecified, uncomplicated; Z59.0 Homelessness; Z88.0 Allergy status to penicillin
CPT/HCPCS: 93005; 99285; 99406

== ENCOUNTER 2017-06-15 19:55 | Inpatient (IN) | payer MEDICAID, OTHER ==
[~2017-06-15] VITALS: Ht 182.9 cm; Wt 92.4 kg
[~2017-06-15 19:55] MED LIST changes: -ACAM333T7 PO; -CLON-570 PO; -DULO60CA44 PO; -MIRT15 PO
[2017-06-15] MEDS ORDERED: QUEtiapine FUMARATE 100 MG TABLET PO PRN (20:15)
[2017-06-15] MEDS ORDERED: LISINOPRIL 20 MG TABLET PO ONE (21:45)
[2017-06-15 21:46] VITALS: BP 162/82
[2017-06-15] MEDS: ZOLPIDEM TARTRATE 10 MG TABLET PO PRN (21:59)
[2017-06-15] MEDS: LevETIRAcetam 500 MG TABLET PO SCH (21:59)
[2017-06-15] MEDS: GABAPENTIN 400 MG CAPSULE PO SCH (21:59)
[2017-06-16 02:48] VITALS: BP 170/100
[2017-06-16 07:01] LABS: CHOL/HDL RATIO 2.4 (4.2-7.3)
[2017-06-16 08:43] LABS: AMPHET/METH SCREEN,URINE NEGATIVE (NEGATIVE); BARBITURATE SCREEN, URINE NEGATIVE (NEGATIVE); BENZODIAZEPINES SCREEN,URINE NEGATIVE (NEGATIVE); CANNABINOID SCREEN,URINE POSITIVE (NEGATIVE); COCAINE SCREEN,URINE NEGATIVE (NEGATIVE); METHADONE SCREEN, URINE POSITIVE (NEGATIVE); OPIATE SCREEN,URINE NEGATIVE (NEGATIVE)
[2017-06-16 08:53] LABS: PHENCYCLIDINE SCREEN,URINE NEGATIVE (NEGATIVE)
[2017-06-16] MEDS ORDERED: GABAPENTIN 400 MG CAPSULE PO SCH (09:00)
[2017-06-16] MEDS: LevETIRAcetam 500 MG TABLET PO SCH ×2 (09:00→16:55)
[2017-06-16] MEDS ORDERED: DULoxetine HCL 60 MG CAPSULE PO SCH (09:00)
[2017-06-16 09:18] LABS: APPEARANCE,URINE CLEAR (CLEAR); BILIRUBIN,URINE NEGATIVE (NEGATIVE); GLUCOSE, URINE (UA) NEGATIVE (NEGATIVE); KETONES,URINE NEGATIVE (NEGATIVE); LEUKOCYTE ESTERASE ,URINE NEGATIVE (NEGATIVE); NITRATE,URINE NEGATIVE (NEGATIVE); OCCULT BLOOD,URINE NEGATIVE (NEGATIVE); PH,URINE 6.5 (5.0-8.0); PROTEIN,URINE NEGATIVE (NEGATIVE)
[2017-06-16] MEDS: LISINOPRIL 20 MG TABLET PO SCH (09:19)
[2017-06-16] MEDS: GABAPENTIN 400 MG CAPSULE PO SCH ×3 (09:21→20:25)
[2017-06-16 09:39] VITALS: BP 124/71
[2017-06-16] MEDS ORDERED: MAG HYDROX/AL HYDROX/SIMETH ES 30 ML SUSPENSION UDCUP PO PRN (10:45)
[2017-06-16] MEDS ORDERED: MAGNESIUM HYDROXIDE SUSPENSION 30 ML UDCUP PO PRN (10:45)
[2017-06-16] MEDS ORDERED: GuaiFENesin/D-METHORPHAN [SUGAR-FREE] 200-20MG/10 ML SYRUP UDCUP PO PRN (10:45)
[2017-06-16] MEDS ORDERED: PROMETHAZINE HCL 25 MG TABLET PO PRN (10:45)
[2017-06-16] MEDS ORDERED: LOPERAMIDE HCL 2 MG CAPSULE PO PRN (10:45)
[2017-06-16] MEDS ORDERED: HydrOXYzine PAMOATE 50 MG CAPSULE PO PRN (10:45)
[2017-06-16] MEDS ORDERED: ACETAMINOPHEN 325 MG TABLET PO PRN (10:45)
[2017-06-16] MEDS: METHADONE HCL 10 MG TABLET PO SCH (11:39)
[2017-06-16] MEDS: ACAMPROSATE CALCIUM 333 MG DR TABLET PO SCH (16:57)
[2017-06-16] MEDS: THIAMINE HCL 100 MG TABLET PO SCH (16:58)
[2017-06-16 19:10] VITALS: BP 126/83
[2017-06-16] MEDS: MIRTAZAPINE 30 MG TABLET PO SCH (20:25)
[2017-06-16] MEDS: ZOLPIDEM TARTRATE 10 MG TABLET PO PRN (20:49)
[2017-06-17 06:58] LABS: BASOPHILS % (AUTO) 0.5 % (0.0-2.0); EOSINOPHILS % (AUTO) 3.6 % (1.0-6.0); HEMATOCRIT 39.9 % (41-53); LYMPHOCYTES # (AUTO) 2.7 K/uL (1.0-4.8); MEAN CORPUSCULAR HEMOGLOBIN 26.3 pg (26.0-34.0); MEAN CORPUSCULAR HGB CONC 32.5 G/dL (31.0-37.0); MEAN CORPUSCULAR VOLUME 81 fL (80-100); MONOCYTES # (AUTO) 0.6 K/uL (0.1-1.0); MONOCYTES % (AUTO) 8.5 % (2.0-9.0); NEUTROPHILS # (AUTO) 3.5 K/uL (1.8-7.7); NEUTROPHILS % (AUTO) 49.4 % (40.0-70.0); PLATELET COUNT (AUTO) 224 K/uL (150-450); RED BLOOD CELL COUNT(AUTO) 4.94 MIL/uL (4.50-5.90); RED CELL DISTRIBUTION WIDTH 22.8 % (11.5-14.5)
[2017-06-17 06:59] LABS: ALANINE AMINOTRANSFERASE 65 U/L (12-78); ALBUMIN 3.9 g/dL (3.4-5.0); ALKALINE PHOSPHATASE 144 U/L (46-116); ANION GAP 7 mmol/L (8-16); ASPARTATE AMINOTRANSFERASE 45 U/L (15-37); BILIRUBIN,TOTAL 0.6 mg/dL (0.1-1.0); CALCIUM, TOTAL 9.1 mg/dL (8.8-10.5); CARBON DIOXIDE 31 mmol/L (22-29); CHLORIDE 100 mmol/L (98-107); CHOLESTEROL 168 mg/dL (131-200); CREATININE 0.99 mg/dL (0.60-1.30); GLOMERULAR FILTR. RATE CALC > 60 mL/min (>60); GLUCOSE,RANDOM 97 mg/dL (70-110); HDL CHOLESTEROL 49 mg/dL (40-60); POTASSIUM 4.5 mmol/L (3.5-5.1); SODIUM SERUM 138 mmol/L (136-145); TOTAL PROTEIN, SERUM 7.9 g/dL (6.4-8.2); TRIGLYCERIDES 63 mg/dL (15-150); UREA NITROGEN, BLOOD 23 mg/dL (7-18)
[2017-06-17 07:00] LABS: CHOL/HDL RATIO 3.4 (4.2-7.3); LDL CHOL (CALC.) 106 mg/dL (0-130)
[2017-06-17] MEDS: ACAMPROSATE CALCIUM 333 MG DR TABLET PO SCH ×3 (09:00→16:22)
[2017-06-17] MEDS: LevETIRAcetam 500 MG TABLET PO SCH ×2 (09:00→16:23)
[2017-06-17] MEDS: METHADONE HCL 10 MG TABLET PO SCH (10:11)
[2017-06-17] MEDS: FOLIC ACID 1 MG TABLET PO SCH (10:12)
[2017-06-17] MEDS: MULTIVITAMINS WITH MINERALS, THERAPEUTIC TABLET PO SCH (10:12)
[2017-06-17] MEDS: THIAMINE HCL 100 MG TABLET PO SCH ×2 (10:12→16:25)
[2017-06-17] MEDS: DULoxetine HCL 30 MG CAPSULE PO SCH (10:12)
[2017-06-17] MEDS: GABAPENTIN 400 MG CAPSULE PO SCH ×4 (10:12→20:55)
[2017-06-17] MEDS: LISINOPRIL 20 MG TABLET PO SCH (10:14)
[2017-06-17 10:27] VITALS: BP 162/73
[2017-06-17] MEDS: LORazepam 2 MG TABLET PO PRN (16:40)
[2017-06-17 18:52] VITALS: BP 157/88
[2017-06-17] MEDS: MIRTAZAPINE 30 MG TABLET PO SCH (20:56)
[2017-06-17] MEDS: ZOLPIDEM TARTRATE 10 MG TABLET PO PRN (20:56)
[2017-06-18 01:10] VITALS: BP 196/111
[2017-06-18] MEDS: LORazepam 2 MG TABLET PO PRN ×4 (01:12→11:04)
[2017-06-18 09:32] VITALS: BP 151/91
[2017-06-18] MEDS: GABAPENTIN 400 MG CAPSULE PO SCH ×5 (10:46→21:08)
[2017-06-18] MEDS: DULoxetine HCL 30 MG CAPSULE PO SCH (10:46)
[2017-06-18] MEDS: METHADONE HCL 10 MG TABLET PO SCH (10:46)
[2017-06-18] MEDS: ACAMPROSATE CALCIUM 333 MG DR TABLET PO SCH ×4 (10:46→16:28)
[2017-06-18] MEDS: LevETIRAcetam 500 MG TABLET PO SCH ×2 (10:46→16:28)
[2017-06-18] MEDS: THIAMINE HCL 100 MG TABLET PO SCH ×2 (10:46→16:28)
[2017-06-18] MEDS: MULTIVITAMINS WITH MINERALS, THERAPEUTIC TABLET PO SCH (10:47)
[2017-06-18] MEDS: FOLIC ACID 1 MG TABLET PO SCH (10:47)
[2017-06-18] MEDS: AmLODIPine BESYLATE 10 MG TABLET PO SCH (10:47)
[2017-06-18] MEDS: LISINOPRIL 20 MG TABLET PO SCH (10:47)
[2017-06-18] MEDS: CloNIDine HCL 0.1 MG TABLET PO SCH ×2 (10:48→16:27)
[2017-06-18 16:51] VITALS: BP 118/65
[2017-06-18] MEDS: MIRTAZAPINE 30 MG TABLET PO SCH (21:08)
[2017-06-19 01:30] VITALS: BP 157/116
[2017-06-19] MEDS: ZOLPIDEM TARTRATE 10 MG TABLET PO PRN ×2 (01:39→20:58)
[2017-06-19 05:50] VITALS: BP 129/83
[2017-06-19 08:58] VITALS: BP 167/92
[2017-06-19] MEDS: GABAPENTIN 400 MG CAPSULE PO SCH ×4 (09:34→20:58)
[2017-06-19] MEDS: AmLODIPine BESYLATE 10 MG TABLET PO SCH (09:34)
[2017-06-19] MEDS: LISINOPRIL 20 MG TABLET PO SCH (09:34)
[2017-06-19] MEDS: THIAMINE HCL 100 MG TABLET PO SCH ×2 (09:34→16:00)
[2017-06-19] MEDS: LevETIRAcetam 500 MG TABLET PO SCH ×2 (09:34→16:00)
[2017-06-19] MEDS: MULTIVITAMINS WITH MINERALS, THERAPEUTIC TABLET PO SCH (09:34)
[2017-06-19] MEDS: METHADONE HCL 10 MG TABLET PO SCH (09:35)
[2017-06-19] MEDS: DULoxetine HCL 30 MG CAPSULE PO SCH (09:37)
[2017-06-19] MEDS: ACAMPROSATE CALCIUM 333 MG DR TABLET PO SCH ×3 (09:37→16:00)
[2017-06-19] MEDS: CloNIDine HCL 0.1 MG TABLET PO SCH ×2 (09:37→16:00)
[2017-06-19] MEDS: FOLIC ACID 1 MG TABLET PO SCH (09:37)
[2017-06-19] MEDS: LORazepam 2 MG TABLET PO PRN (13:27)
[2017-06-19 17:17] VITALS: BP 129/77
[2017-06-19] MEDS: MIRTAZAPINE 15 MG TABLET PO SCH (20:57)
[2017-06-20 01:50] VITALS: BP 164/103
[2017-06-20] MEDS: LORazepam 2 MG TABLET PO PRN ×4 (01:54→20:24)
[2017-06-20 08:30] VITALS: BP 148/90
[2017-06-20] MEDS: FOLIC ACID 1 MG TABLET PO SCH (09:08)
[2017-06-20] MEDS: CloNIDine HCL 0.1 MG TABLET PO SCH ×2 (09:08→16:31)
[2017-06-20] MEDS: METHADONE HCL 10 MG TABLET PO SCH (09:08)
[2017-06-20] MEDS: LevETIRAcetam 500 MG TABLET PO SCH ×2 (09:08→16:31)
[2017-06-20] MEDS: ACAMPROSATE CALCIUM 333 MG DR TABLET PO SCH ×3 (09:08→16:31)
[2017-06-20] MEDS: DULoxetine HCL 20 MG CAPSULE PO SCH (09:08)
[2017-06-20] MEDS: GABAPENTIN 400 MG CAPSULE PO SCH ×4 (09:09→20:24)
[2017-06-20] MEDS: AmLODIPine BESYLATE 10 MG TABLET PO SCH (09:09)
[2017-06-20] MEDS: THIAMINE HCL 100 MG TABLET PO SCH ×2 (09:09→16:31)
[2017-06-20] MEDS: MULTIVITAMINS WITH MINERALS, THERAPEUTIC TABLET PO SCH (09:09)
[2017-06-20] MEDS: LISINOPRIL 20 MG TABLET PO SCH (09:09)
[2017-06-20 16:36] VITALS: BP 133/90
[2017-06-20] MEDS ORDERED: GABA-533 PO (16:59)
[2017-06-20] MEDS ORDERED: MIRT15 PO (16:59)
[2017-06-20] MEDS ORDERED: ACAM333T7 PO (16:59)
[2017-06-20] MEDS ORDERED: DULO20CA30 PO (16:59)
[2017-06-20] MEDS ORDERED: LEVE500T53 PO (16:59)
[2017-06-20] MEDS: ZOLPIDEM TARTRATE 10 MG TABLET PO PRN (20:24)
[2017-06-20] MEDS: MIRTAZAPINE 15 MG TABLET PO SCH (20:24)
[2017-06-21 02:50] VITALS: BP 150/80
[2017-06-21] MEDS: LORazepam 2 MG TABLET PO PRN ×2 (02:55→12:03)
[2017-06-21 09:20] VITALS: BP 160/90
[2017-06-21] MEDS ORDERED: ACAM333T7 PO (10:13)
[2017-06-21] MEDS ORDERED: CLON-570 PO (10:13)
[2017-06-21] MEDS ORDERED: MIRT15 PO (10:16)
[2017-06-21] MEDS ORDERED: DULO20CA30 PO (10:16)
[2017-06-21] MEDS: DULoxetine HCL 20 MG CAPSULE PO SCH (10:26)
[2017-06-21] MEDS: FOLIC ACID 1 MG TABLET PO SCH (10:27)
[2017-06-21] MEDS: MULTIVITAMINS WITH MINERALS, THERAPEUTIC TABLET PO SCH (10:27)
[2017-06-21] MEDS: GABAPENTIN 400 MG CAPSULE PO SCH ×2 (10:27→12:03)
[2017-06-21] MEDS: THIAMINE HCL 100 MG TABLET PO SCH (10:27)
[2017-06-21] MEDS: LISINOPRIL 20 MG TABLET PO SCH (10:28)
[2017-06-21] MEDS: CloNIDine HCL 0.1 MG TABLET PO SCH (10:28)
[2017-06-21] MEDS: LevETIRAcetam 500 MG TABLET PO SCH (10:28)
[2017-06-21] MEDS: AmLODIPine BESYLATE 10 MG TABLET PO SCH (10:28)
[2017-06-21] MEDS: ACAMPROSATE CALCIUM 333 MG DR TABLET PO SCH ×2 (10:29→12:01)
[2017-06-21 10:30] VITALS: BP_SYST 154; BP_SYST 160; BP_DIAS 77
[2017-06-21] MEDS: METHADONE HCL 10 MG TABLET PO SCH (10:32)
[2017-06-24] MEDS ORDERED: LISI-662 PO (10:50)
== END 2017-06-21 15:10 | disposition home or self-care (01) | DRG 751 ==
LOC: 3EI 21:00
PROVIDERS: ADMIT Psychiatry & Neurology Psychiatry; ATTEND Psychiatry & Neurology Psychiatry
DX: F33.2 Major depressive disorder, recurrent severe without psychotic features (principal); G40.909 Epilepsy, unspecified, not intractable, without status epilepticus; I10 Essential (primary) hypertension; F17.200 Nicotine dependence, unspecified, uncomplicated; Z87.01 Personal history of pneumonia (recurrent); Z88.0 Allergy status to penicillin; Z91.14 Patient's other noncompliance with medication regimen; Z59.0 Homelessness; Z79.899 Other long term (current) drug therapy
CPT/HCPCS: 80307; 87081

== ENCOUNTER 2017-08-03 19:57 | Inpatient (IN) | payer MEDICAID, OTHER ==
[~2017-08-03] VITALS: Ht 182.9 cm; Wt 92.1 kg
[~2017-08-03 19:57] MED LIST changes: -AMLO-512 PO; +DULO20CA30 PO; -GABA-533 PO; -LISI-661 PO; +MIRT15 PO
[2017-08-03 21:20] VITALS: BP 193/85
[2017-08-03] MEDS: LevETIRAcetam 500 MG TABLET PO SCH (21:56)
[2017-08-03] MEDS: LISINOPRIL 20 MG TABLET PO SCH (21:56)
[2017-08-03 23:06] VITALS: BP 158/73
[2017-08-04 00:16] VITALS: BP 139/82
[2017-08-04] MEDS: LORazepam 2 MG TABLET PO PRN ×3 (00:16→17:49)
[2017-08-04] MEDS: ZOLPIDEM TARTRATE 10 MG TABLET PO PRN ×2 (00:53→20:38)
[2017-08-04 08:22] LABS: BASOPHILS % (AUTO) 0.6 % (0.0-2.0); EOSINOPHILS % (AUTO) 4.4 % (1.0-6.0); HEMATOCRIT 32.4 % (41-53); HEMOGLOBIN 10.9 g/dL (13.5-17.5); LYMPHOCYTES # (AUTO) 1.5 K/uL (1.0-4.8); LYMPHOCYTES % (AUTO) 29.7 % (22.0-44.0); MEAN CORPUSCULAR HEMOGLOBIN 28.2 pg (26.0-34.0); MEAN CORPUSCULAR HGB CONC 33.7 G/dL (31.0-37.0); MEAN CORPUSCULAR VOLUME 84 fL (80-100); MONOCYTES # (AUTO) 0.5 K/uL (0.1-1.0); MONOCYTES % (AUTO) 9.4 % (2.0-9.0); NEUTROPHILS # (AUTO) 2.8 K/uL (1.8-7.7); NEUTROPHILS % (AUTO) 55.9 % (40.0-70.0); PLATELET COUNT (AUTO) 154 K/uL (150-450); RED BLOOD CELL COUNT(AUTO) 3.87 MIL/uL (4.50-5.90); RED CELL DISTRIBUTION WIDTH 17.1 % (11.5-14.5)
[2017-08-04 08:41] LABS: HEMOGLOBIN A1C 5.6 % (4.5-6.2)
[2017-08-04] MEDS: LevETIRAcetam 500 MG TABLET PO SCH ×2 (08:53→16:29)
[2017-08-04] MEDS: LISINOPRIL 20 MG TABLET PO SCH ×2 (08:53→16:29)
[2017-08-04 08:55] VITALS: BP 125/76
[2017-08-04] MEDS: METHADONE HCL 10 MG TABLET PO SCH (09:07)
[2017-08-04 09:09] LABS: ALANINE AMINOTRANSFERASE 36 U/L (12-78); ALBUMIN 2.9 g/dL (3.4-5.0); ALKALINE PHOSPHATASE 74 U/L (46-116); ANION GAP 6 mmol/L (8-16); ASPARTATE AMINOTRANSFERASE 30 U/L (15-37); BILIRUBIN,TOTAL 0.4 mg/dL (0.1-1.0); CALCIUM, TOTAL 8.2 mg/dL (8.8-10.5); CARBON DIOXIDE 28 mmol/L (22-29); CHLORIDE 108 mmol/L (98-107); CHOL/HDL RATIO 2.8 (4.2-7.3); CHOLESTEROL 116 mg/dL (131-200); CREATININE 0.87 mg/dL (0.60-1.30); FREE T4 (FREE THYROXINE) 0.89 ng/dL (0.76-1.46); GLOMERULAR FILTR. RATE CALC > 60 mL/min (>60); GLUCOSE,RANDOM 80 mg/dL (70-110); HDL CHOLESTEROL 41 mg/dL (40-60); LDL CHOL (CALC.) 62 mg/dL (0-130); POTASSIUM 3.5 mmol/L (3.5-5.1); SODIUM SERUM 142 mmol/L (136-145); THYROID STIMULATING HORMONE 1.42 uIU/mL (0.36-3.74); TOTAL PROTEIN, SERUM 5.8 g/dL (6.4-8.2); TRIGLYCERIDES 63 mg/dL (15-150); UREA NITROGEN, BLOOD 8 mg/dL (7-18)
[2017-08-04 16:00] VITALS: BP 140/80
[2017-08-04] MEDS: MIRTAZAPINE 15 MG TABLET PO SCH (20:35)
[2017-08-05 00:15] VITALS: BP 160/86
[2017-08-05] MEDS: LORazepam 2 MG TABLET PO PRN ×2 (00:35→16:15)
[2017-08-05 08:28] VITALS: BP 160/65
[2017-08-05] MEDS: LISINOPRIL 20 MG TABLET PO SCH ×2 (09:07→16:15)
[2017-08-05] MEDS: LevETIRAcetam 500 MG TABLET PO SCH ×2 (09:07→16:15)
[2017-08-05] MEDS: DULoxetine HCL 20 MG CAPSULE PO SCH (09:08)
[2017-08-05] MEDS: METHADONE HCL 10 MG TABLET PO SCH (09:09)
[2017-08-05 12:30] VITALS: BP 137/88
[2017-08-05] MEDS: GABAPENTIN 400 MG CAPSULE PO SCH ×3 (12:49→20:58)
[2017-08-05 17:15] VITALS: BP 135/86
[2017-08-05] MEDS: MIRTAZAPINE 15 MG TABLET PO SCH (20:58)
[2017-08-06] MEDS: LORazepam 2 MG TABLET PO PRN ×3 (02:19→21:26)
[2017-08-06 06:36] VITALS: BP 166/94
[2017-08-06 08:37] VITALS: BP 132/86
[2017-08-06] MEDS: GABAPENTIN 400 MG CAPSULE PO SCH ×4 (08:43→21:07)
[2017-08-06] MEDS: DULoxetine HCL 20 MG CAPSULE PO SCH (08:43)
[2017-08-06] MEDS: LevETIRAcetam 500 MG TABLET PO SCH ×2 (08:43→16:39)
[2017-08-06] MEDS: LISINOPRIL 20 MG TABLET PO SCH ×2 (08:43→16:39)
[2017-08-06] MEDS: METHADONE HCL 10 MG TABLET PO SCH (08:44)
[2017-08-06 13:00] VITALS: BP 142/81
[2017-08-06 16:00] VITALS: BP 140/90
[2017-08-06] MEDS: MIRTAZAPINE 15 MG TABLET PO SCH (21:07)
[2017-08-07 03:16] VITALS: BP 145/88
[2017-08-07] MEDS: LORazepam 2 MG TABLET PO PRN ×2 (03:18→10:21)
[2017-08-07 07:00] VITALS: BP 171/90
[2017-08-07] MEDS ORDERED: BENZOCAINE/MENTHOL LOZENGE PO PRN (07:15)
[2017-08-07] MEDS: METHADONE HCL 10 MG TABLET PO SCH (08:47)
[2017-08-07] MEDS: LevETIRAcetam 500 MG TABLET PO SCH ×2 (08:47→16:25)
[2017-08-07] MEDS: LISINOPRIL 20 MG TABLET PO SCH ×2 (08:47→16:25)
[2017-08-07] MEDS: GABAPENTIN 400 MG CAPSULE PO SCH ×4 (08:48→20:26)
[2017-08-07] MEDS: DULoxetine HCL 20 MG CAPSULE PO SCH (08:48)
[2017-08-07 09:02] VITALS: BP 130/79
[2017-08-07] MEDS: HALOPERIDOL 5 MG TABLET PO PRN (10:21)
[2017-08-07 16:22] VITALS: BP 148/76
[2017-08-07] MEDS: MIRTAZAPINE 15 MG TABLET PO SCH (20:26)
[2017-08-08 03:31] VITALS: BP 172/86
[2017-08-08] MEDS: LORazepam 2 MG TABLET PO PRN ×2 (04:33→12:17)
[2017-08-08 08:58] VITALS: BP 120/80
[2017-08-08] MEDS: LISINOPRIL 20 MG TABLET PO SCH ×2 (09:08→17:00)
[2017-08-08] MEDS: GABAPENTIN 400 MG CAPSULE PO SCH ×4 (09:08→20:33)
[2017-08-08] MEDS: HALOPERIDOL 5 MG TABLET PO PRN ×2 (09:08→18:57)
[2017-08-08] MEDS: METHADONE HCL 10 MG TABLET PO SCH (09:09)
[2017-08-08] MEDS: LevETIRAcetam 500 MG TABLET PO SCH ×2 (09:09→16:59)
[2017-08-08] MEDS: DULoxetine HCL 20 MG CAPSULE PO SCH (09:10)
[2017-08-08 16:22] VITALS: BP 120/65
[2017-08-08] MEDS: MIRTAZAPINE 15 MG TABLET PO SCH (20:33)
[2017-08-09] MEDS: HALOPERIDOL 5 MG TABLET PO PRN ×2 (00:05→13:11)
[2017-08-09] MEDS: LORazepam 2 MG TABLET PO PRN ×2 (00:05→13:11)
[2017-08-09 07:05] VITALS: BP 118/64
[2017-08-09 08:47] VITALS: BP 110/73
[2017-08-09] MEDS: DULoxetine HCL 20 MG CAPSULE PO SCH (09:16)
[2017-08-09] MEDS: LISINOPRIL 20 MG TABLET PO SCH ×2 (09:16→16:06)
[2017-08-09] MEDS: GABAPENTIN 400 MG CAPSULE PO SCH ×4 (09:16→20:34)
[2017-08-09] MEDS: LevETIRAcetam 500 MG TABLET PO SCH ×2 (09:16→16:06)
[2017-08-09] MEDS: METHADONE HCL 10 MG TABLET PO SCH (09:17)
[2017-08-09 16:35] VITALS: BP 123/88
[2017-08-09] MEDS: MIRTAZAPINE 15 MG TABLET PO SCH (20:34)
[2017-08-10 01:55] VITALS: BP 192/105
[2017-08-10] MEDS: LORazepam 2 MG TABLET PO PRN (02:03)
[2017-08-10] MEDS: CloNIDine HCL 0.1 MG TABLET PO PRN (02:03)
[2017-08-10 03:42] VITALS: BP 146/74
[2017-08-10 08:40] VITALS: BP 123/75
[2017-08-10] MEDS: GABAPENTIN 400 MG CAPSULE PO SCH ×4 (08:56→20:26)
[2017-08-10] MEDS: DULoxetine HCL 20 MG CAPSULE PO SCH (08:56)
[2017-08-10] MEDS: LevETIRAcetam 500 MG TABLET PO SCH ×2 (08:56→16:25)
[2017-08-10] MEDS: LISINOPRIL 20 MG TABLET PO SCH ×2 (08:56→16:25)
[2017-08-10] MEDS: METHADONE HCL 10 MG TABLET PO SCH (08:57)
[2017-08-10] MEDS ORDERED: GABA-533 PO (09:29)
[2017-08-10] MEDS ORDERED: LISI-662 PO (09:43)
[2017-08-10 16:19] VITALS: BP 137/82
[2017-08-10] MEDS: MIRTAZAPINE 15 MG TABLET PO SCH (20:26)
[2017-08-11 00:16] VITALS: BP 189/100
[2017-08-11] MEDS: CloNIDine HCL 0.1 MG TABLET PO PRN (00:27)
[2017-08-11 01:30] VITALS: BP 134/89
[2017-08-11] MEDS: LORazepam 2 MG TABLET PO PRN (02:26)
[2017-08-11 04:21] VITALS: BP 149/81
[2017-08-11 08:00] VITALS: BP 124/75
[2017-08-11] MEDS: METHADONE HCL 10 MG TABLET PO SCH (09:03)
[2017-08-11] MEDS: LISINOPRIL 20 MG TABLET PO SCH (09:03)
[2017-08-11] MEDS: DULoxetine HCL 20 MG CAPSULE PO SCH (09:03)
[2017-08-11] MEDS: LevETIRAcetam 500 MG TABLET PO SCH (09:03)
[2017-08-11] MEDS: GABAPENTIN 400 MG CAPSULE PO SCH (09:04)
== END 2017-08-11 09:20 | disposition home or self-care (01) | DRG 751 ==
LOC: B2S 20:46 → EDSTATUS 20:52
DX: F33.2 Major depressive disorder, recurrent severe without psychotic features (principal); R56.9 Unspecified convulsions; R45.851 Suicidal ideations; I48.91 Unspecified atrial fibrillation; I10 Essential (primary) hypertension; H51.8 Other specified disorders of binocular movement; F41.9 Anxiety disorder, unspecified; Z59.0 Homelessness; Z79.899 Other long term (current) drug therapy; Z85.841 Personal history of malignant neoplasm of brain; Z87.01 Personal history of pneumonia (recurrent); Z88.0 Allergy status to penicillin
CPT/HCPCS: 83036; 84439; 84443; 99285

== ENCOUNTER 2017-08-15 22:21 | Inpatient (IN) | payer MEDICAID ==
[~2017-08-15] VITALS: Ht 182.9 cm; Wt 90.0 kg
[~2017-08-15 22:21] MED LIST changes: +GABA-533 PO; +LISI-662 PO
[2017-08-16] MEDS ORDERED: ZOLPIDEM TARTRATE 10 MG TABLET PO PRN (02:45)
[2017-08-16 04:53] VITALS: BP 151/91
[2017-08-16] MEDS ORDERED: CloNIDine HCL 0.1 MG TABLET PO PRN (06:30)
[2017-08-16 08:50] VITALS: BP 124/81
[2017-08-16] MEDS ORDERED: METHADONE HCL 10 MG TABLET PO SCH (09:00)
[2017-08-16] MEDS: LISINOPRIL 20 MG TABLET PO SCH ×2 (09:48→16:20)
[2017-08-16] MEDS: LevETIRAcetam 500 MG TABLET PO SCH ×2 (09:49→16:20)
[2017-08-16] MEDS: DULoxetine HCL 20 MG CAPSULE PO SCH (12:33)
[2017-08-16] MEDS: LORazepam 1 MG TABLET PO PRN ×3 (12:33→21:29)
[2017-08-16] MEDS: GABAPENTIN 400 MG CAPSULE PO SCH ×2 (12:33→16:20)
[2017-08-16 17:16] VITALS: BP 123/70
[2017-08-16] MEDS: MIRTAZAPINE 15 MG TABLET PO SCH (21:01)
[2017-08-17 08:30] VITALS: BP 138/60
[2017-08-17] MEDS: GABAPENTIN 400 MG CAPSULE PO SCH ×3 (08:47→17:12)
[2017-08-17] MEDS: DULoxetine HCL 20 MG CAPSULE PO SCH (08:47)
[2017-08-17] MEDS: LevETIRAcetam 500 MG TABLET PO SCH ×2 (08:48→17:12)
[2017-08-17] MEDS: LISINOPRIL 20 MG TABLET PO SCH ×2 (08:48→17:12)
[2017-08-17] MEDS ORDERED: METHADONE HCL 10 MG TABLET PO ONE (09:00)
[2017-08-17] MEDS: LORazepam 1 MG TABLET PO PRN ×3 (11:52→22:20)
[2017-08-17 17:30] VITALS: BP 126/74
[2017-08-17] MEDS: MIRTAZAPINE 15 MG TABLET PO SCH (20:37)
[2017-08-18 08:00] VITALS: BP 161/104
[2017-08-18] MEDS ORDERED: METHADONE HCL 10 MG TABLET PO ONE (09:00)
[2017-08-18] MEDS: GABAPENTIN 400 MG CAPSULE PO SCH ×3 (10:26→16:37)
[2017-08-18] MEDS: DULoxetine HCL 20 MG CAPSULE PO SCH (10:26)
[2017-08-18] MEDS: LISINOPRIL 20 MG TABLET PO SCH ×2 (10:26→16:37)
[2017-08-18] MEDS: LevETIRAcetam 500 MG TABLET PO SCH ×2 (10:26→16:37)
[2017-08-18] MEDS: LORazepam 1 MG TABLET PO PRN ×2 (10:32→17:42)
[2017-08-18] MEDS: HALOPERIDOL 5 MG TABLET PO PRN (10:32)
[2017-08-18 16:48] VITALS: BP 131/84
[2017-08-18] MEDS: MIRTAZAPINE 15 MG TABLET PO SCH (21:10)
[2017-08-19 08:20] VITALS: BP 138/90
[2017-08-19] MEDS ORDERED: METHADONE HCL 10 MG TABLET PO ONE (09:00)
[2017-08-19] MEDS: GABAPENTIN 400 MG CAPSULE PO SCH ×3 (09:06→17:02)
[2017-08-19] MEDS: LevETIRAcetam 500 MG TABLET PO SCH ×2 (09:07→17:02)
[2017-08-19] MEDS: DULoxetine HCL 20 MG CAPSULE PO SCH (09:07)
[2017-08-19] MEDS: LISINOPRIL 20 MG TABLET PO SCH ×2 (09:07→17:02)
[2017-08-19] MEDS: LORazepam 1 MG TABLET PO PRN ×3 (10:17→22:07)
[2017-08-19 17:07] VITALS: BP 137/79
[2017-08-19] MEDS: MIRTAZAPINE 15 MG TABLET PO SCH (20:28)
[2017-08-20] MEDS ORDERED: METHADONE HCL 10 MG TABLET PO ONE (09:00)
[2017-08-20] MEDS: GABAPENTIN 400 MG CAPSULE PO SCH ×3 (09:02→17:52)
[2017-08-20] MEDS: DULoxetine HCL 20 MG CAPSULE PO SCH (09:03)
[2017-08-20] MEDS: LISINOPRIL 20 MG TABLET PO SCH ×2 (09:03→17:52)
[2017-08-20] MEDS: LevETIRAcetam 500 MG TABLET PO SCH ×2 (09:03→17:52)
[2017-08-20] MEDS: LORazepam 1 MG TABLET PO PRN ×3 (09:04→20:48)
[2017-08-20 09:47] VITALS: BP 155/91
[2017-08-20 16:39] VITALS: BP 126/79
[2017-08-20] MEDS: MIRTAZAPINE 15 MG TABLET PO SCH (20:48)
[2017-08-21 08:54] VITALS: BP 148/64
[2017-08-21] MEDS ORDERED: METHADONE HCL 10 MG TABLET PO ONE (09:00)
[2017-08-21] MEDS: DULoxetine HCL 20 MG CAPSULE PO SCH (09:14)
[2017-08-21] MEDS: GABAPENTIN 400 MG CAPSULE PO SCH ×3 (09:14→17:04)
[2017-08-21] MEDS: LevETIRAcetam 500 MG TABLET PO SCH ×2 (09:15→17:04)
[2017-08-21] MEDS: LISINOPRIL 20 MG TABLET PO SCH ×2 (09:15→17:04)
[2017-08-21] MEDS: LORazepam 1 MG TABLET PO PRN (10:18)
[2017-08-21] MEDS: HALOPERIDOL 5 MG TABLET PO PRN (10:19)
[2017-08-21] MEDS: MIRTAZAPINE 15 MG TABLET PO SCH (21:25)
[2017-08-22 08:42] VITALS: BP 146/81
[2017-08-22] MEDS ORDERED: METHADONE HCL 10 MG TABLET PO ONE (09:00)
[2017-08-22] MEDS: LISINOPRIL 20 MG TABLET PO SCH ×2 (10:17→17:20)
[2017-08-22] MEDS: LevETIRAcetam 500 MG TABLET PO SCH ×2 (10:17→17:20)
[2017-08-22] MEDS: DULoxetine HCL 20 MG CAPSULE PO SCH (10:18)
[2017-08-22] MEDS: GABAPENTIN 400 MG CAPSULE PO SCH ×3 (10:18→17:20)
[2017-08-22] MEDS: HALOPERIDOL 5 MG TABLET PO PRN (10:18)
[2017-08-22] MEDS: LORazepam 1 MG TABLET PO PRN (10:19)
[2017-08-22 17:00] VITALS: BP 136/82
[2017-08-22] MEDS: MIRTAZAPINE 15 MG TABLET PO SCH (21:18)
[2017-08-23 02:37] VITALS: BP 149/90
[2017-08-23] MEDS: LORazepam 1 MG TABLET PO PRN ×2 (02:37→09:40)
[2017-08-23 08:53] VITALS: BP 146/98
[2017-08-23] MEDS ORDERED: GABA-533 PO (08:54)
[2017-08-23] MEDS ORDERED: MIRT45TA PO (08:54)
[2017-08-23] MEDS ORDERED: DULO20CA30 PO (08:54)
[2017-08-23] MEDS ORDERED: METHADONE HCL 10 MG TABLET PO ONE (09:00)
[2017-08-23] MEDS: LISINOPRIL 20 MG TABLET PO SCH (09:40)
[2017-08-23] MEDS: LevETIRAcetam 500 MG TABLET PO SCH (09:40)
[2017-08-23] MEDS: GABAPENTIN 400 MG CAPSULE PO SCH ×2 (09:40→13:55)
[2017-08-23] MEDS: DULoxetine HCL 20 MG CAPSULE PO SCH (09:40)
[2017-08-23] MEDS: HALOPERIDOL 5 MG TABLET PO PRN (09:40)
[2017-08-24] MEDS ORDERED: METHADONE HCL 10 MG TABLET PO ONE (09:00)
[2017-08-25] MEDS ORDERED: METHADONE HCL 10 MG TABLET PO ONE (09:00)
== END 2017-08-23 16:00 | disposition home or self-care (01) | DRG 751 ==
LOC: 3EI 08-16 02:00
DX: F33.3 Major depressive disorder, recurrent, severe with psychotic symptoms (principal); R45.851 Suicidal ideations; E44.1 Mild protein-calorie malnutrition; H51.8 Other specified disorders of binocular movement; F41.1 Generalized anxiety disorder; Z79.899 Other long term (current) drug therapy; Z68.26 Body mass index [BMI] 26.0-26.9, adult; Z88.0 Allergy status to penicillin
CPT/HCPCS: 70450; 87081

== ENCOUNTER 2017-09-05 22:36 | Inpatient (IN) | payer MEDICAID, OTHER ==
[~2017-09-05] VITALS: Ht 182.9 cm; Wt 89.0 kg
[~2017-09-05 22:36] MED LIST changes: +HALOPERIDOL 5 MG TABLET PO PRN; -MIRT15 PO; +MIRT45TA PO
[2017-09-05] MEDS ORDERED: ALBUTEROL SULFATE HFA 90 MCG/PUFF 8 GM INHALER IH ONE (23:30)
[2017-09-05] MEDS ORDERED: LEVOFLOXACIN 500 MG TABLET PO ONE (23:30)
[2017-09-05] MEDS ORDERED: AZITHROMYCIN 250 MG TABLET PO ONE (23:30)
[2017-09-05] MEDS ORDERED: LEVOFLOXACIN 250 MG TABLET PO ONE (23:30)
[2017-09-05 23:41] LABS: BASOPHILS % (AUTO) 0.3 % (0.0-2.0); EOSINOPHILS % (AUTO) 4.1 % (1.0-6.0); HEMATOCRIT 32.9 % (41-53); HEMOGLOBIN 11.1 g/dL (13.5-17.5); LYMPHOCYTES # (AUTO) 1.9 K/uL (1.0-4.8); LYMPHOCYTES % (AUTO) 19.3 % (22.0-44.0); MEAN CORPUSCULAR HGB CONC 33.7 G/dL (31.0-37.0); MEAN CORPUSCULAR VOLUME 83 fL (80-100); MONOCYTES # (AUTO) 0.9 K/uL (0.1-1.0); MONOCYTES % (AUTO) 8.9 % (2.0-9.0); NEUTROPHILS # (AUTO) 6.6 K/uL (1.8-7.7); NEUTROPHILS % (AUTO) 67.4 % (40.0-70.0); PLATELET COUNT (AUTO) 343 K/uL (150-450); RED BLOOD CELL COUNT(AUTO) 3.97 MIL/uL (4.50-5.90); RED CELL DISTRIBUTION WIDTH 15.6 % (11.5-14.5)
[2017-09-05 23:50] LABS: ANION GAP 4 mmol/L (8-16); CALCIUM, TOTAL 8.1 mg/dL (8.8-10.5); CARBON DIOXIDE 31 mmol/L (22-29); CHLORIDE 104 mmol/L (98-107); CREATININE 0.91 mg/dL (0.60-1.30); GLOMERULAR FILTR. RATE CALC > 60 mL/min (>60); GLUCOSE,RANDOM 88 mg/dL (70-110); POTASSIUM 4.1 mmol/L (3.5-5.1); SODIUM SERUM 139 mmol/L (136-145); UREA NITROGEN, BLOOD 22 mg/dL (7-18)
[2017-09-05 23:57] LABS: ALANINE AMINOTRANSFERASE 36 U/L (12-78); ALBUMIN 2.5 g/dL (3.4-5.0); ALKALINE PHOSPHATASE 114 U/L (46-116); ASPARTATE AMINOTRANSFERASE 25 U/L (15-37); BILIRUBIN,TOTAL 0.3 mg/dL (0.1-1.0); LIPASE 75 U/L (73-393); TOTAL PROTEIN, SERUM 6.4 g/dL (6.4-8.2)
[2017-09-06] MEDS ORDERED: ALBUTEROL SULFATE HFA 90 MCG/PUFF 8 GM INHALER IH PRN (00:45)
[2017-09-06 01:23] VITALS: BP 140/70
[2017-09-06] MEDS ORDERED: INFLUENZA VIRUS VACCINE QVS 2017-18 (3YR+)/PF 60 MCG/0.5 ML SYRINGE IM ONE (02:30)
[2017-09-06] MEDS ORDERED: PNEUMOCOCCAL VACCINE POLYVALENT 0.5 ML VIAL [PPSV23] IM ONE (02:30)
[2017-09-06 08:03] VITALS: BP 98/53
[2017-09-06] MEDS: LevETIRAcetam 500 MG TABLET PO SCH ×2 (08:16→20:26)
[2017-09-06] MEDS: LISINOPRIL 20 MG TABLET PO SCH ×2 (08:17→20:25)
[2017-09-06] MEDS: LEVOFLOXACIN 250 MG TABLET PO SCH (08:42)
[2017-09-06] MEDS ORDERED: AZITHROMYCIN 250 MG TABLET PO SCH (09:00)
[2017-09-06] MEDS ORDERED: LEVOFLOXACIN 500 MG TABLET PO ONE (09:00)
[2017-09-06 13:21] VITALS: BP 147/66
[2017-09-06] MEDS: GABAPENTIN 400 MG CAPSULE PO SCH ×2 (18:02→20:30)
[2017-09-06] MEDS ORDERED: METHADONE HCL 10 MG TABLET PO ONE (20:15)
[2017-09-06] MEDS: RisperiDONE 1 MG TABLET PO SCH (20:25)
[2017-09-06] MEDS: MIRTAZAPINE 15 MG TABLET PO SCH (20:26)
[2017-09-06 20:27] VITALS: BP 132/73
[2017-09-07 08:05] VITALS: BP 168/88
[2017-09-07] MEDS: DULoxetine HCL 20 MG CAPSULE PO SCH (08:08)
[2017-09-07] MEDS: LISINOPRIL 20 MG TABLET PO SCH ×2 (08:08→17:22)
[2017-09-07] MEDS: LevETIRAcetam 500 MG TABLET PO SCH ×2 (08:08→17:22)
[2017-09-07] MEDS: LEVOFLOXACIN 250 MG TABLET PO SCH (08:09)
[2017-09-07] MEDS: GABAPENTIN 400 MG CAPSULE PO SCH ×2 (08:09→17:22)
[2017-09-07] MEDS ORDERED: METHADONE HCL 10 MG TABLET PO ONE (09:00)
[2017-09-07 10:03] VITALS: BP 144/74
[2017-09-07 13:35] VITALS: BP 144/87
[2017-09-07] MEDS: LORazepam 2 MG TABLET PO PRN (13:58)
[2017-09-07] MEDS: RisperiDONE 1 MG TABLET PO SCH (20:13)
[2017-09-07] MEDS: ZOLPIDEM TARTRATE 10 MG TABLET PO PRN (20:13)
[2017-09-07] MEDS: MIRTAZAPINE 15 MG TABLET PO SCH (20:13)
[2017-09-07 20:33] VITALS: BP 144/93
[2017-09-08] MEDS: LORazepam 2 MG TABLET PO PRN ×3 (01:35→16:06)
[2017-09-08 01:36] VITALS: BP 160/94
[2017-09-08 08:00] VITALS: BP 165/90
[2017-09-08] MEDS ORDERED: METHADONE HCL 10 MG TABLET PO ONE (09:00)
[2017-09-08] MEDS: GABAPENTIN 400 MG CAPSULE PO SCH ×3 (09:42→16:04)
[2017-09-08] MEDS: LevETIRAcetam 500 MG TABLET PO SCH ×2 (09:42→16:04)
[2017-09-08] MEDS: LISINOPRIL 20 MG TABLET PO SCH ×2 (09:43→16:04)
[2017-09-08] MEDS: DULoxetine HCL 20 MG CAPSULE PO SCH (09:43)
[2017-09-08] MEDS: LEVOFLOXACIN 250 MG TABLET PO SCH (09:43)
[2017-09-08 19:22] VITALS: BP 108/70
[2017-09-08] MEDS: MIRTAZAPINE 15 MG TABLET PO SCH (20:48)
[2017-09-08] MEDS: RisperiDONE 1 MG TABLET PO SCH (20:48)
[2017-09-08] MEDS: ZOLPIDEM TARTRATE 10 MG TABLET PO PRN (21:10)
[2017-09-09] MEDS ORDERED: METHADONE HCL 10 MG TABLET PO ONE (09:00)
[2017-09-09] MEDS: LevETIRAcetam 500 MG TABLET PO SCH ×2 (10:17→17:47)
[2017-09-09] MEDS: DULoxetine HCL 20 MG CAPSULE PO SCH (10:17)
[2017-09-09] MEDS: LEVOFLOXACIN 250 MG TABLET PO SCH (10:17)
[2017-09-09] MEDS: GABAPENTIN 400 MG CAPSULE PO SCH ×3 (10:18→17:47)
[2017-09-09] MEDS: LISINOPRIL 20 MG TABLET PO SCH ×2 (10:18→17:47)
[2017-09-09 12:04] VITALS: BP 144/70
[2017-09-09] MEDS: LORazepam 2 MG TABLET PO PRN (12:34)
[2017-09-09 19:14] VITALS: BP 138/74
[2017-09-09] MEDS: MIRTAZAPINE 15 MG TABLET PO SCH (21:10)
[2017-09-09] MEDS: RisperiDONE 1 MG TABLET PO SCH (21:11)
[2017-09-10 06:10] VITALS: BP 162/101
[2017-09-10] MEDS: LORazepam 2 MG TABLET PO PRN ×3 (06:10→17:14)
[2017-09-10] MEDS ORDERED: METHADONE HCL 10 MG TABLET PO ONE (09:00)
[2017-09-10] MEDS: DULoxetine HCL 20 MG CAPSULE PO SCH (09:26)
[2017-09-10] MEDS: LevETIRAcetam 500 MG TABLET PO SCH ×2 (09:26→17:13)
[2017-09-10] MEDS: GABAPENTIN 400 MG CAPSULE PO SCH ×3 (09:26→17:13)
[2017-09-10] MEDS: LEVOFLOXACIN 250 MG TABLET PO SCH (09:27)
[2017-09-10] MEDS: LISINOPRIL 20 MG TABLET PO SCH ×2 (09:27→17:13)
[2017-09-10 10:49] VITALS: BP 119/70
[2017-09-10 19:44] VITALS: BP 120/77
[2017-09-10] MEDS: MIRTAZAPINE 15 MG TABLET PO SCH (20:12)
[2017-09-10] MEDS: RisperiDONE 1 MG TABLET PO SCH (20:13)
[2017-09-11 08:00] VITALS: BP 150/87
[2017-09-11] MEDS: GABAPENTIN 400 MG CAPSULE PO SCH ×2 (09:57→12:22)
[2017-09-11] MEDS: LevETIRAcetam 500 MG TABLET PO SCH (09:57)
[2017-09-11] MEDS: DULoxetine HCL 20 MG CAPSULE PO SCH (09:58)
[2017-09-11] MEDS: LEVOFLOXACIN 250 MG TABLET PO SCH (09:58)
[2017-09-11] MEDS: LISINOPRIL 20 MG TABLET PO SCH (09:58)
[2017-09-11] MEDS ORDERED: DULO20CA30 PO (11:22)
[2017-09-11] MEDS ORDERED: RISP1 PO (11:22)
[2017-09-11] MEDS ORDERED: MIRT15 PO (11:22)
[2017-09-11] MEDS ORDERED: GABA-533 PO (11:22)
[2017-09-11] MEDS ORDERED: LEVO250 PO (11:38)
== END 2017-09-11 15:30 | disposition home or self-care (01) | DRG 751 ==
LOC: BV PSY EVL 22:38 → AHU 09-06 01:00 → 3EI 09-07 13:30
DX: F33.3 Major depressive disorder, recurrent, severe with psychotic symptoms (principal); J18.9 Pneumonia, unspecified organism; I48.91 Unspecified atrial fibrillation; G40.909 Epilepsy, unspecified, not intractable, without status epilepticus; R45.851 Suicidal ideations; I10 Essential (primary) hypertension; F11.23 Opioid dependence with withdrawal; F41.9 Anxiety disorder, unspecified; G89.29 Other chronic pain; F17.210 Nicotine dependence, cigarettes, uncomplicated; F12.90 Cannabis use, unspecified, uncomplicated; Z59.0 Homelessness; Z79.899 Other long term (current) drug therapy; Z88.0 Allergy status to penicillin; Z85.841 Personal history of malignant neoplasm of brain; Z91.5 Personal history of self-harm; Z28.21 Immunization not carried out because of patient refusal
CPT/HCPCS: 87040; 87081; 93005; 99285; G0480; J3535

== ENCOUNTER 2018-03-12 22:53 | Inpatient (IN) | payer MEDICAID ==
[~2018-03-12] VITALS: Ht 182.9 cm; Wt 89.4 kg
[~2018-03-12 22:53] MED LIST changes: -HALOPERIDOL 5 MG TABLET PO PRN; +LEVO250 PO; +MIRT15 PO; -MIRT45TA PO; +RISP1 PO
[2018-03-13] MEDS ORDERED: HALOPERIDOL 5 MG TABLET PO PRN (03:30)
[2018-03-13 05:02] VITALS: BP 121/84
[2018-03-13] MEDS ORDERED: PNEUMOCOCCAL VACCINE POLYVALENT 0.5 ML VIAL [PPSV23] IM ONE (06:00)
[2018-03-13 08:26] LABS: BASOPHILS % (AUTO) 0.5 % (0.0-2.0); HEMATOCRIT 38.1 % (41-53); HEMOGLOBIN 12.6 g/dL (13.5-17.5); LYMPHOCYTES # (AUTO) 1.3 K/uL (1.0-4.8); LYMPHOCYTES % (AUTO) 28.6 % (22.0-44.0); MEAN CORPUSCULAR HEMOGLOBIN 27.9 pg (26.0-34.0); MEAN CORPUSCULAR VOLUME 85 fL (80-100); MONOCYTES # (AUTO) 0.5 K/uL (0.1-1.0); MONOCYTES % (AUTO) 10.2 % (2.0-9.0); NEUTROPHILS # (AUTO) 2.5 K/uL (1.8-7.7); NEUTROPHILS % (AUTO) 56.7 % (40.0-70.0); PLATELET COUNT (AUTO) 233 K/uL (150-450); RED BLOOD CELL COUNT(AUTO) 4.51 MIL/uL (4.50-5.90); RED CELL DISTRIBUTION WIDTH 15.9 % (11.5-14.5)
[2018-03-13 08:49] LABS: HEMOGLOBIN A1C 5.4 % (4.5-6.2)
[2018-03-13 09:10] VITALS: BP 150/85
[2018-03-13] MEDS: LISINOPRIL 20 MG TABLET PO SCH ×2 (09:13→17:00)
[2018-03-13] MEDS: LevETIRAcetam 500 MG TABLET PO SCH ×2 (09:13→17:00)
[2018-03-13 09:15] LABS: ALANINE AMINOTRANSFERASE 47 U/L (12-78); ALBUMIN 3.2 g/dL (3.4-5.0); ALKALINE PHOSPHATASE 96 U/L (46-116); ANION GAP 7 mmol/L (8-16); ASPARTATE AMINOTRANSFERASE 40 U/L (15-37); BILIRUBIN,TOTAL 0.4 mg/dL (0.1-1.0); CALCIUM, TOTAL 8.2 mg/dL (8.8-10.5); CARBON DIOXIDE 29 mmol/L (22-29); CHLORIDE 104 mmol/L (98-107); CREATININE 0.91 mg/dL (0.60-1.30); FREE T4 (FREE THYROXINE) 1.08 ng/dL (0.76-1.46); GLOMERULAR FILTR. RATE CALC > 60 mL/min (>60); GLUCOSE,RANDOM 75 mg/dL (70-110); POTASSIUM 4.3 mmol/L (3.5-5.1); SODIUM SERUM 140 mmol/L (136-145); THYROID STIMULATING HORMONE 2.35 uIU/mL (0.36-3.74); TOTAL PROTEIN, SERUM 6.7 g/dL (6.4-8.2); UREA NITROGEN, BLOOD 16 mg/dL (7-18)
[2018-03-13] MEDS: GABAPENTIN 400 MG CAPSULE PO SCH ×2 (13:00→17:00)
[2018-03-13 16:05] VITALS: BP 141/78
[2018-03-13] MEDS: MIRTAZAPINE 15 MG TABLET PO SCH (21:00)
[2018-03-14 01:50] VITALS: BP 138/86
[2018-03-14] MEDS: ZOLPIDEM TARTRATE 10 MG TABLET PO PRN ×2 (01:53→20:31)
[2018-03-14] MEDS: LISINOPRIL 20 MG TABLET PO SCH ×2 (08:10→17:00)
[2018-03-14] MEDS: GABAPENTIN 400 MG CAPSULE PO SCH ×3 (08:11→17:00)
[2018-03-14] MEDS: METHADONE HCL 10 MG/5 ML SOLUTION ORAL.SYG PO SCH (08:11)
[2018-03-14] MEDS: ARIPiprazole 5 MG TABLET PO SCH (08:46)
[2018-03-14] MEDS: DULoxetine HCL 20 MG CAPSULE PO SCH (08:46)
[2018-03-14] MEDS: LevETIRAcetam 500 MG TABLET PO SCH ×2 (08:46→17:00)
[2018-03-14 16:23] VITALS: BP 138/78
[2018-03-14] MEDS: MIRTAZAPINE 15 MG TABLET PO SCH (20:31)
[2018-03-15 06:08] VITALS: BP 138/82
[2018-03-15 08:16] VITALS: BP 164/86
[2018-03-15] MEDS: LevETIRAcetam 500 MG TABLET PO SCH ×2 (09:45→16:09)
[2018-03-15] MEDS: DULoxetine HCL 20 MG CAPSULE PO SCH (09:45)
[2018-03-15] MEDS: GABAPENTIN 400 MG CAPSULE PO SCH ×3 (09:45→16:09)
[2018-03-15] MEDS: ARIPiprazole 5 MG TABLET PO SCH (09:45)
[2018-03-15] MEDS: LISINOPRIL 20 MG TABLET PO SCH ×2 (09:45→16:09)
[2018-03-15] MEDS: METHADONE HCL 10 MG/5 ML SOLUTION ORAL.SYG PO SCH (09:48)
[2018-03-15 16:26] VITALS: BP 127/86
[2018-03-15] MEDS: LORazepam 2 MG TABLET PO PRN (17:31)
[2018-03-15] MEDS: MIRTAZAPINE 15 MG TABLET PO SCH (20:39)
[2018-03-16 02:01] VITALS: BP 137/82
[2018-03-16 08:08] VITALS: BP 145/73
[2018-03-16] MEDS: LISINOPRIL 20 MG TABLET PO SCH ×2 (08:49→16:06)
[2018-03-16] MEDS: GABAPENTIN 400 MG CAPSULE PO SCH ×3 (08:49→16:06)
[2018-03-16] MEDS: METHADONE HCL 10 MG/5 ML SOLUTION ORAL.SYG PO SCH (08:51)
[2018-03-16] MEDS: LevETIRAcetam 500 MG TABLET PO SCH ×2 (10:30→16:06)
[2018-03-16] MEDS: ARIPiprazole 5 MG TABLET PO SCH (10:30)
[2018-03-16] MEDS: DULoxetine HCL 20 MG CAPSULE PO SCH (10:30)
[2018-03-16] MEDS: LORazepam 2 MG TABLET PO PRN (10:35)
[2018-03-16 16:45] VITALS: BP 116/73
[2018-03-16] MEDS: MIRTAZAPINE 15 MG TABLET PO SCH (20:32)
[2018-03-17 02:00] VITALS: BP 146/78
[2018-03-17] MEDS: LORazepam 2 MG TABLET PO PRN (02:16)
[2018-03-17 08:35] VITALS: BP 145/63
[2018-03-17 08:54] VITALS: BP 151/85
[2018-03-17] MEDS: LISINOPRIL 20 MG TABLET PO SCH ×2 (08:58→16:06)
[2018-03-17] MEDS: LevETIRAcetam 500 MG TABLET PO SCH ×2 (08:58→16:06)
[2018-03-17] MEDS: ARIPiprazole 5 MG TABLET PO SCH (08:58)
[2018-03-17] MEDS: GABAPENTIN 400 MG CAPSULE PO SCH ×3 (08:59→16:06)
[2018-03-17] MEDS: DULoxetine HCL 20 MG CAPSULE PO SCH (08:59)
[2018-03-17] MEDS: METHADONE HCL 10 MG/5 ML SOLUTION ORAL.SYG PO SCH (09:00)
[2018-03-17 16:04] VITALS: BP 133/82
[2018-03-17] MEDS: MIRTAZAPINE 15 MG TABLET PO SCH (20:21)
[2018-03-18 06:14] VITALS: BP 145/95
[2018-03-18] MEDS: METHADONE HCL 10 MG/5 ML SOLUTION ORAL.SYG PO SCH (08:10)
[2018-03-18] MEDS: LevETIRAcetam 500 MG TABLET PO SCH ×2 (08:10→16:02)
[2018-03-18] MEDS: DULoxetine HCL 20 MG CAPSULE PO SCH (08:10)
[2018-03-18] MEDS: GABAPENTIN 400 MG CAPSULE PO SCH ×3 (08:10→16:02)
[2018-03-18] MEDS: LISINOPRIL 20 MG TABLET PO SCH ×2 (08:10→16:34)
[2018-03-18] MEDS: ARIPiprazole 5 MG TABLET PO SCH (08:10)
[2018-03-18 08:25] VITALS: BP 147/69
[2018-03-18] MEDS: LORazepam 2 MG TABLET PO PRN ×2 (09:36→15:45)
[2018-03-18 16:17] VITALS: BP 125/67
[2018-03-18] MEDS: MIRTAZAPINE 15 MG TABLET PO SCH (20:54)
[2018-03-19 01:46] VITALS: BP 144/89
[2018-03-19 08:29] VITALS: BP 148/81
[2018-03-19] MEDS: GABAPENTIN 400 MG CAPSULE PO SCH ×3 (08:47→16:34)
[2018-03-19] MEDS: ARIPiprazole 5 MG TABLET PO SCH (08:47)
[2018-03-19] MEDS: DULoxetine HCL 20 MG CAPSULE PO SCH (08:47)
[2018-03-19] MEDS: LISINOPRIL 20 MG TABLET PO SCH ×2 (08:47→17:32)
[2018-03-19] MEDS: METHADONE HCL 10 MG/5 ML SOLUTION ORAL.SYG PO SCH (08:48)
[2018-03-19] MEDS: LevETIRAcetam 500 MG TABLET PO SCH ×2 (08:53→16:34)
[2018-03-19] MEDS: LORazepam 2 MG TABLET PO PRN ×2 (12:21→16:34)
[2018-03-19 16:20] VITALS: BP 125/78
[2018-03-19] MEDS: MIRTAZAPINE 15 MG TABLET PO SCH (20:57)
[2018-03-20 02:57] VITALS: BP 134/80
[2018-03-20 08:20] VITALS: BP 121/78
[2018-03-20] MEDS: LevETIRAcetam 500 MG TABLET PO SCH ×2 (09:12→16:27)
[2018-03-20] MEDS: LISINOPRIL 20 MG TABLET PO SCH ×2 (09:12→17:12)
[2018-03-20] MEDS: GABAPENTIN 400 MG CAPSULE PO SCH ×3 (09:12→16:27)
[2018-03-20] MEDS: DULoxetine HCL 20 MG CAPSULE PO SCH (09:13)
[2018-03-20] MEDS: ARIPiprazole 5 MG TABLET PO SCH (09:13)
[2018-03-20] MEDS: METHADONE HCL 10 MG/5 ML SOLUTION ORAL.SYG PO SCH (09:14)
[2018-03-20] MEDS: LORazepam 2 MG TABLET PO PRN ×2 (10:53→16:27)
[2018-03-20 16:27] VITALS: BP 125/95
[2018-03-20 16:29] VITALS: BP 144/96
[2018-03-20] MEDS: MIRTAZAPINE 15 MG TABLET PO SCH (21:17)
[2018-03-21] VITALS: BP 145/87
[2018-03-21] MEDS: ZOLPIDEM TARTRATE 10 MG TABLET PO PRN (00:01)
[2018-03-21] MEDS: LORazepam 2 MG TABLET PO PRN (00:16)
[2018-03-21 08:19] VITALS: BP 151/79
[2018-03-21] MEDS: LISINOPRIL 20 MG TABLET PO SCH ×2 (09:37→16:43)
[2018-03-21] MEDS: GABAPENTIN 400 MG CAPSULE PO SCH ×3 (09:37→16:43)
[2018-03-21] MEDS: LevETIRAcetam 500 MG TABLET PO SCH ×2 (09:37→16:43)
[2018-03-21] MEDS: DULoxetine HCL 20 MG CAPSULE PO SCH (09:37)
[2018-03-21] MEDS: ARIPiprazole 5 MG TABLET PO SCH (09:37)
[2018-03-21] MEDS: METHADONE HCL 10 MG/5 ML SOLUTION ORAL.SYG PO SCH (09:38)
[2018-03-21 13:33] VITALS: BP 119/73
[2018-03-21 16:14] VITALS: BP 132/78
[2018-03-21] MEDS: MIRTAZAPINE 15 MG TABLET PO SCH (20:40)
[2018-03-22 05:51] VITALS: BP 140/89
[2018-03-22 08:12] VITALS: BP 139/84
[2018-03-22] MEDS: GABAPENTIN 400 MG CAPSULE PO SCH ×3 (08:57→16:02)
[2018-03-22] MEDS: LevETIRAcetam 500 MG TABLET PO SCH ×2 (08:57→16:02)
[2018-03-22] MEDS: METHADONE HCL 10 MG/5 ML SOLUTION ORAL.SYG PO SCH (08:58)
[2018-03-22] MEDS: LISINOPRIL 20 MG TABLET PO SCH ×2 (08:58→16:02)
[2018-03-22] MEDS: DULoxetine HCL 20 MG CAPSULE PO SCH (08:59)
[2018-03-22] MEDS: ARIPiprazole 5 MG TABLET PO SCH (08:59)
[2018-03-22] MEDS: LORazepam 2 MG TABLET PO PRN (15:54)
[2018-03-22 16:20] VITALS: BP 135/79
[2018-03-22] MEDS: MIRTAZAPINE 15 MG TABLET PO SCH (20:22)
[2018-03-23 03:28] VITALS: BP 139/85
[2018-03-23] MEDS: LevETIRAcetam 500 MG TABLET PO SCH ×2 (08:07→16:15)
[2018-03-23] MEDS: GABAPENTIN 400 MG CAPSULE PO SCH ×3 (08:07→16:15)
[2018-03-23] MEDS: DULoxetine HCL 60 MG CAPSULE PO SCH (08:07)
[2018-03-23] MEDS: ARIPiprazole 5 MG TABLET PO SCH (08:07)
[2018-03-23] MEDS: LISINOPRIL 20 MG TABLET PO SCH ×2 (08:07→16:15)
[2018-03-23] MEDS: METHADONE HCL 10 MG/5 ML SOLUTION ORAL.SYG PO SCH (08:08)
[2018-03-23 08:33] VITALS: BP 142/80
[2018-03-23] MEDS: LORazepam 2 MG TABLET PO PRN ×2 (12:56→17:19)
[2018-03-23 16:25] VITALS: BP 145/90
[2018-03-23] MEDS: MIRTAZAPINE 15 MG TABLET PO SCH (20:23)
[2018-03-24 03:15] VITALS: BP 144/92
[2018-03-24] MEDS: LORazepam 2 MG TABLET PO PRN ×3 (03:25→16:18)
[2018-03-24 06:15] VITALS: BP 145/88
[2018-03-24 06:30] VITALS: BP 138/86
[2018-03-24 07:00] VITALS: BP 136/88
[2018-03-24 08:18] VITALS: BP 134/80
[2018-03-24] MEDS: LevETIRAcetam 500 MG TABLET PO SCH ×2 (09:00→16:18)
[2018-03-24] MEDS: METHADONE HCL 10 MG/5 ML SOLUTION ORAL.SYG PO SCH (09:22)
[2018-03-24] MEDS: ARIPiprazole 5 MG TABLET PO SCH (09:22)
[2018-03-24] MEDS: LISINOPRIL 20 MG TABLET PO SCH ×2 (09:23→16:44)
[2018-03-24] MEDS: DULoxetine HCL 60 MG CAPSULE PO SCH (09:23)
[2018-03-24] MEDS: GABAPENTIN 400 MG CAPSULE PO SCH ×3 (09:23→16:18)
[2018-03-24 16:15] VITALS: BP 127/87
[2018-03-24] MEDS: MIRTAZAPINE 15 MG TABLET PO SCH (20:22)
[2018-03-25 00:07] VITALS: BP 140/83
[2018-03-25] MEDS: ARIPiprazole 5 MG TABLET PO SCH (08:17)
[2018-03-25] MEDS: LevETIRAcetam 500 MG TABLET PO SCH ×2 (08:17→16:33)
[2018-03-25] MEDS: GABAPENTIN 400 MG CAPSULE PO SCH ×3 (08:17→17:04)
[2018-03-25] MEDS: DULoxetine HCL 60 MG CAPSULE PO SCH (08:18)
[2018-03-25] MEDS: LISINOPRIL 20 MG TABLET PO SCH ×2 (08:18→16:35)
[2018-03-25] MEDS: METHADONE HCL 10 MG/5 ML SOLUTION ORAL.SYG PO SCH (08:20)
[2018-03-25 09:15] VITALS: BP 155/88
[2018-03-25 16:17] VITALS: BP 136/91
[2018-03-25] MEDS: MIRTAZAPINE 15 MG TABLET PO SCH (20:07)
[2018-03-25] MEDS: ZOLPIDEM TARTRATE 10 MG TABLET PO PRN ×2 (20:22→20:48)
[2018-03-25] MEDS: LORazepam 2 MG TABLET PO PRN (20:22)
[2018-03-26 06:12] VITALS: BP 130/81
[2018-03-26 08:32] VITALS: BP 135/76
[2018-03-26] MEDS: LISINOPRIL 20 MG TABLET PO SCH (08:56)
[2018-03-26] MEDS: GABAPENTIN 400 MG CAPSULE PO SCH ×2 (08:56→12:38)
[2018-03-26] MEDS: ARIPiprazole 5 MG TABLET PO SCH (08:56)
[2018-03-26] MEDS: DULoxetine HCL 60 MG CAPSULE PO SCH (08:56)
[2018-03-26] MEDS: LevETIRAcetam 500 MG TABLET PO SCH (08:56)
[2018-03-26] MEDS: METHADONE HCL 10 MG/5 ML SOLUTION ORAL.SYG PO SCH (08:57)
[2018-03-26] MEDS: LORazepam 2 MG TABLET PO PRN (11:01)
[2018-03-26] MEDS ORDERED: ARIP5TAB8 PO (14:12)
[2018-03-26] MEDS ORDERED: DULO60CA44 PO (14:12)
== END 2018-03-26 14:50 | disposition home or self-care (01) | DRG 751 ==
LOC: B2S 03-13 03:27
PROVIDERS: ADMIT Psychiatry & Neurology Psychiatry; ATTEND Psychiatry & Neurology Psychiatry
DX: F33.2 Major depressive disorder, recurrent severe without psychotic features (principal); I48.91 Unspecified atrial fibrillation; R45.851 Suicidal ideations; G40.909 Epilepsy, unspecified, not intractable, without status epilepticus; F12.90 Cannabis use, unspecified, uncomplicated; D64.9 Anemia, unspecified; I10 Essential (primary) hypertension; F17.200 Nicotine dependence, unspecified, uncomplicated; H51.8 Other specified disorders of binocular movement; Z59.0 Homelessness; Z79.899 Other long term (current) drug therapy; Z80.9 Family history of malignant neoplasm, unspecified; Z87.01 Personal history of pneumonia (recurrent); Z91.5 Personal history of self-harm; Z76.5 Malingerer [conscious simulation]; Z28.21 Immunization not carried out because of patient refusal; Z88.0 Allergy status to penicillin; Z85.841 Personal history of malignant neoplasm of brain
CPT/HCPCS: 83036; 84439; 84443

== ENCOUNTER 2018-04-30 08:13 | Inpatient (IN) | payer MEDICAID, OTHER ==
[~2018-04-30] VITALS: Ht 175.3 cm; Wt 92.3 kg
[~2018-04-30 08:13] MED LIST changes: +ARIP5TAB8 PO; -DULO20CA30 PO; +DULO60CA44 PO; -LEVO250 PO; -RISP1 PO
[2018-04-30] MEDS ORDERED: ALBU8HFA IH (08:49)
[2018-04-30] MEDS ORDERED: DOXY100C PO (08:49)
[2018-04-30 09:20] LABS: BASOPHILS % (AUTO) 0.2 % (0.0-2.0); EOSINOPHILS % (AUTO) 0 % (1.0-6.0); HEMATOCRIT 36.6 % (41-53); HEMOGLOBIN 12.1 g/dL (13.5-17.5); LYMPHOCYTES # (AUTO) 0.6 K/uL (1.0-4.8); MEAN CORPUSCULAR HEMOGLOBIN 28.2 pg (26.0-34.0); MEAN CORPUSCULAR HGB CONC 33.1 G/dL (31.0-37.0); MEAN CORPUSCULAR VOLUME 85 fL (80-100); MONOCYTES # (AUTO) 0.2 K/uL (0.1-1.0); MONOCYTES % (AUTO) 3.9 % (2.0-9.0); NEUTROPHILS # (AUTO) 5.2 K/uL (1.8-7.7); PLATELET COUNT (AUTO) 326 K/uL (150-450); RED CELL DISTRIBUTION WIDTH 15.4 % (11.5-14.5)
[2018-04-30 09:26] LABS: ANION GAP 7 mmol/L (8-16); CALCIUM, TOTAL 8.7 mg/dL (8.8-10.5); CARBON DIOXIDE 28 mmol/L (22-29); CHLORIDE 104 mmol/L (98-107); CREATININE 0.79 mg/dL (0.60-1.30); GLOMERULAR FILTR. RATE CALC > 60 mL/min (>60); GLUCOSE,RANDOM 128 mg/dL (70-110); POTASSIUM 4.5 mmol/L (3.5-5.1); SODIUM SERUM 139 mmol/L (136-145); UREA NITROGEN, BLOOD 16 mg/dL (7-18)
[2018-04-30 09:31] LABS: ALANINE AMINOTRANSFERASE 48 U/L (12-78); ALBUMIN 3.3 g/dL (3.4-5.0); ALKALINE PHOSPHATASE 129 U/L (46-116); ASPARTATE AMINOTRANSFERASE 38 U/L (15-37); BILIRUBIN,TOTAL 0.3 mg/dL (0.1-1.0); TOTAL PROTEIN, SERUM 7.4 g/dL (6.4-8.2)
[2018-04-30 09:40] LABS: NEUTROPHILS % (AUTO) 85.9 % (40.0-70.0)
[2018-04-30 10:59] LABS: AMPHET/METH SCREEN,URINE POSITIVE (NEGATIVE); BARBITURATE SCREEN, URINE NEGATIVE (NEGATIVE); BENZODIAZEPINES SCREEN,URINE NEGATIVE (NEGATIVE); CANNABINOID SCREEN,URINE NEGATIVE (NEGATIVE); COCAINE SCREEN,URINE NEGATIVE (NEGATIVE); METHADONE SCREEN, URINE POSITIVE (NEGATIVE); OPIATE SCREEN,URINE NEGATIVE (NEGATIVE)
[2018-04-30 11:00] LABS: PHENCYCLIDINE SCREEN,URINE NEGATIVE (NEGATIVE)
[2018-04-30] MEDS ORDERED: LISINOPRIL 10 MG TABLET PO ONE (11:15)
[2018-04-30 16:13] VITALS: BP 123/76
[2018-04-30] MEDS: LORazepam 2 MG TABLET PO PRN (16:51)
[2018-04-30] MEDS ORDERED: PNEUMOCOCCAL VACCINE POLYVALENT 0.5 ML VIAL [PPSV23] IM ONE (17:15)
[2018-05-01] VITALS (7 sets, daily range): BP systolic 115–153; BP diastolic 71–90
[2018-05-01] MEDS: LORazepam 2 MG TABLET PO PRN ×3 (00:04→16:47)
[2018-05-01] MEDS: LISINOPRIL 20 MG TABLET PO SCH (11:11)
[2018-05-01] MEDS: GABAPENTIN 400 MG CAPSULE PO SCH ×2 (12:03→16:35)
[2018-05-01] MEDS: METHADONE HCL 10 MG TABLET PO SCH (13:18)
[2018-05-01] MEDS: MIRTAZAPINE 15 MG TABLET PO SCH (20:23)
[2018-05-01] MEDS ORDERED: METOPROLOL TARTRATE 25 MG TABLET PO ONE (21:45)
[2018-05-02 05:59] VITALS: BP 137/76
[2018-05-02 08:23] VITALS: BP 143/74
[2018-05-02] MEDS: ARIPiprazole 5 MG TABLET PO SCH (09:04)
[2018-05-02] MEDS: MULTIVITAMINS WITH IRON TABLET PO SCH (09:04)
[2018-05-02] MEDS: METHADONE HCL 10 MG TABLET PO SCH (09:04)
[2018-05-02] MEDS: LISINOPRIL 20 MG TABLET PO SCH (09:04)
[2018-05-02] MEDS: DULoxetine HCL 60 MG CAPSULE PO SCH (09:05)
[2018-05-02] MEDS: LevETIRAcetam 500 MG TABLET PO SCH ×2 (09:05→16:50)
[2018-05-02] MEDS: GABAPENTIN 400 MG CAPSULE PO SCH ×3 (09:05→16:50)
[2018-05-02 16:27] VITALS: BP 132/80
[2018-05-02] MEDS: MIRTAZAPINE 15 MG TABLET PO SCH (20:43)
[2018-05-02] MEDS: METOPROLOL TARTRATE 25 MG TABLET PO SCH (20:43)
[2018-05-03] MEDS: LORazepam 2 MG TABLET PO PRN (06:38)
[2018-05-03 07:03] VITALS: BP 148/60
[2018-05-03 08:34] VITALS: BP 130/77
[2018-05-03] MEDS: DULoxetine HCL 60 MG CAPSULE PO SCH (09:35)
[2018-05-03] MEDS: LISINOPRIL 20 MG TABLET PO SCH (09:35)
[2018-05-03] MEDS: GABAPENTIN 400 MG CAPSULE PO SCH ×3 (09:35→16:31)
[2018-05-03] MEDS: MULTIVITAMINS WITH IRON TABLET PO SCH (09:35)
[2018-05-03] MEDS: ARIPiprazole 5 MG TABLET PO SCH (09:36)
[2018-05-03] MEDS: METHADONE HCL 10 MG TABLET PO SCH (09:36)
[2018-05-03] MEDS: LevETIRAcetam 500 MG TABLET PO SCH ×2 (09:38→16:30)
[2018-05-03 16:39] VITALS: BP 123/73
[2018-05-03] MEDS: MIRTAZAPINE 15 MG TABLET PO SCH (20:36)
[2018-05-03] MEDS: METOPROLOL TARTRATE 25 MG TABLET PO SCH (20:37)
[2018-05-04] MEDS: LORazepam 2 MG TABLET PO PRN (07:13)
[2018-05-04] MEDS: ARIPiprazole 5 MG TABLET PO SCH (08:45)
[2018-05-04] MEDS: DULoxetine HCL 60 MG CAPSULE PO SCH (08:46)
[2018-05-04] MEDS: LevETIRAcetam 500 MG TABLET PO SCH ×3 (08:46→17:00)
[2018-05-04] MEDS: GABAPENTIN 400 MG CAPSULE PO SCH ×4 (08:47→17:00)
[2018-05-04] MEDS: METHADONE HCL 10 MG TABLET PO SCH (08:47)
[2018-05-04] MEDS: MULTIVITAMINS WITH IRON TABLET PO SCH (08:47)
[2018-05-04] MEDS: LISINOPRIL 20 MG TABLET PO SCH (08:47)
[2018-05-04 08:50] VITALS: BP 136/81
[2018-05-04 16:22] VITALS: BP 140/68
[2018-05-04] MEDS: MIRTAZAPINE 15 MG TABLET PO SCH (20:39)
[2018-05-04] MEDS: METOPROLOL TARTRATE 25 MG TABLET PO SCH (20:40)
[2018-05-05] MEDS: ZOLPIDEM TARTRATE 10 MG TABLET PO PRN (00:21)
[2018-05-05 04:43] VITALS: BP 133/76
[2018-05-05] MEDS: METHADONE HCL 10 MG TABLET PO SCH (09:02)
[2018-05-05] MEDS: GABAPENTIN 400 MG CAPSULE PO SCH ×3 (09:02→16:14)
[2018-05-05] MEDS: LISINOPRIL 20 MG TABLET PO SCH (09:02)
[2018-05-05] MEDS: LevETIRAcetam 500 MG TABLET PO SCH ×2 (09:02→16:14)
[2018-05-05] MEDS: MULTIVITAMINS WITH IRON TABLET PO SCH (09:03)
[2018-05-05] MEDS: DULoxetine HCL 60 MG CAPSULE PO SCH (09:03)
[2018-05-05] MEDS: ARIPiprazole 5 MG TABLET PO SCH (09:35)
[2018-05-05 09:36] VITALS: BP 135/75
[2018-05-05] MEDS: LORazepam 2 MG TABLET PO PRN (16:14)
[2018-05-05 16:37] VITALS: BP 137/78
[2018-05-05] MEDS: METOPROLOL TARTRATE 25 MG TABLET PO SCH (20:52)
[2018-05-05] MEDS: MIRTAZAPINE 15 MG TABLET PO SCH (20:52)
[2018-05-06 07:15] VITALS: BP 134/72
[2018-05-06] MEDS: MULTIVITAMINS WITH IRON TABLET PO SCH (08:22)
[2018-05-06] MEDS: METHADONE HCL 10 MG TABLET PO SCH (08:22)
[2018-05-06] MEDS: LevETIRAcetam 500 MG TABLET PO SCH ×2 (08:22→16:56)
[2018-05-06] MEDS: ARIPiprazole 5 MG TABLET PO SCH (08:22)
[2018-05-06] MEDS: LISINOPRIL 20 MG TABLET PO SCH (08:22)
[2018-05-06] MEDS: GABAPENTIN 400 MG CAPSULE PO SCH ×3 (08:23→16:56)
[2018-05-06] MEDS: DULoxetine HCL 60 MG CAPSULE PO SCH (08:23)
[2018-05-06 08:41] VITALS: BP 132/72
[2018-05-06] MEDS: LORazepam 2 MG TABLET PO PRN ×2 (10:34→14:47)
[2018-05-06 16:21] VITALS: BP 121/59
[2018-05-06 20:30] VITALS: BP 130/68
[2018-05-06] MEDS: MIRTAZAPINE 15 MG TABLET PO SCH (20:31)
[2018-05-06] MEDS: METOPROLOL TARTRATE 25 MG TABLET PO SCH (20:31)
[2018-05-07 07:01] VITALS: BP 130/70
[2018-05-07 08:57] VITALS: BP 137/69
[2018-05-07] MEDS: METHADONE HCL 10 MG TABLET PO SCH (09:18)
[2018-05-07] MEDS: GABAPENTIN 400 MG CAPSULE PO SCH ×3 (09:18→17:03)
[2018-05-07] MEDS: ARIPiprazole 5 MG TABLET PO SCH (09:19)
[2018-05-07] MEDS: LevETIRAcetam 500 MG TABLET PO SCH ×2 (09:19→17:00)
[2018-05-07] MEDS: MULTIVITAMINS WITH IRON TABLET PO SCH (09:19)
[2018-05-07] MEDS: DULoxetine HCL 60 MG CAPSULE PO SCH (09:19)
[2018-05-07] MEDS: LISINOPRIL 20 MG TABLET PO SCH (09:19)
[2018-05-07 16:00] VITALS: BP 117/69
[2018-05-07] MEDS: MIRTAZAPINE 15 MG TABLET PO SCH (20:26)
[2018-05-07] MEDS: METOPROLOL TARTRATE 25 MG TABLET PO SCH (20:26)
[2018-05-07] MEDS: HALOPERIDOL 5 MG TABLET PO PRN (22:29)
[2018-05-07] MEDS: LORazepam 2 MG TABLET PO PRN (22:29)
[2018-05-08 06:25] VITALS: BP 139/75
[2018-05-08] MEDS: GABAPENTIN 400 MG CAPSULE PO SCH ×3 (08:15→16:45)
[2018-05-08] MEDS: LISINOPRIL 20 MG TABLET PO SCH (08:16)
[2018-05-08] MEDS: METHADONE HCL 10 MG TABLET PO SCH (08:16)
[2018-05-08] MEDS: DULoxetine HCL 60 MG CAPSULE PO SCH (08:16)
[2018-05-08] MEDS: ARIPiprazole 5 MG TABLET PO SCH (08:16)
[2018-05-08] MEDS: LevETIRAcetam 500 MG TABLET PO SCH ×2 (08:16→16:44)
[2018-05-08] MEDS: MULTIVITAMINS WITH IRON TABLET PO SCH (08:16)
[2018-05-08 08:52] VITALS: BP 153/80
[2018-05-08 10:00] VITALS: BP 134/76
[2018-05-08 16:00] VITALS: BP 151/73
[2018-05-08 17:43] VITALS: BP 138/75
[2018-05-08] MEDS: METOPROLOL TARTRATE 25 MG TABLET PO SCH (21:27)
[2018-05-08] MEDS: MIRTAZAPINE 15 MG TABLET PO SCH (21:27)
[2018-05-09 03:22] VITALS: BP 136/81
[2018-05-09] MEDS: LORazepam 2 MG TABLET PO PRN (07:20)
[2018-05-09] MEDS: DULoxetine HCL 60 MG CAPSULE PO SCH (08:26)
[2018-05-09] MEDS: LISINOPRIL 20 MG TABLET PO SCH (08:26)
[2018-05-09] MEDS: ARIPiprazole 5 MG TABLET PO SCH (08:26)
[2018-05-09] MEDS: GABAPENTIN 400 MG CAPSULE PO SCH ×3 (08:26→17:03)
[2018-05-09] MEDS: LevETIRAcetam 500 MG TABLET PO SCH ×2 (08:26→17:03)
[2018-05-09] MEDS: MULTIVITAMINS WITH IRON TABLET PO SCH (08:26)
[2018-05-09] MEDS: METHADONE HCL 10 MG TABLET PO SCH (08:27)
[2018-05-09 08:34] VITALS: BP 157/80
[2018-05-09] MEDS ORDERED: HydrOXYzine PAMOATE 50 MG CAPSULE PO PRN (11:45)
[2018-05-09] MEDS ORDERED: MAGNESIUM HYDROXIDE SUSPENSION 30 ML UDCUP PO PRN (11:45)
[2018-05-09] MEDS ORDERED: LOPERAMIDE HCL 2 MG CAPSULE PO PRN (11:45)
[2018-05-09] MEDS ORDERED: MAG HYDROX/AL HYDROX/SIMETH ES 30 ML SUSPENSION UDCUP PO PRN (11:45)
[2018-05-09] MEDS ORDERED: PROMETHAZINE HCL 25 MG TABLET PO PRN (11:45)
[2018-05-09] MEDS ORDERED: GuaiFENesin/D-METHORPHAN [SUGAR-FREE] 200-20MG/10 ML SYRUP UDCUP PO PRN (11:45)
[2018-05-09] MEDS ORDERED: ACETAMINOPHEN 325 MG TABLET PO PRN (11:45)
[2018-05-09] MEDS: ACAMPROSATE CALCIUM 333 MG DR TABLET PO SCH ×2 (12:21→17:03)
[2018-05-09 16:00] VITALS: BP 141/89
[2018-05-09] MEDS: THIAMINE HCL 100 MG TABLET PO SCH (17:03)
[2018-05-09] MEDS: METOPROLOL TARTRATE 25 MG TABLET PO SCH (20:18)
[2018-05-09] MEDS: MIRTAZAPINE 15 MG TABLET PO SCH (20:18)
[2018-05-10] MEDS: MULTIVITAMINS WITH IRON TABLET PO SCH (08:14)
[2018-05-10] MEDS: DULoxetine HCL 60 MG CAPSULE PO SCH (08:14)
[2018-05-10] MEDS: LevETIRAcetam 500 MG TABLET PO SCH ×2 (08:14→16:27)
[2018-05-10] MEDS: GABAPENTIN 400 MG CAPSULE PO SCH ×3 (08:14→16:27)
[2018-05-10] MEDS: METHADONE HCL 10 MG TABLET PO SCH (08:14)
[2018-05-10] MEDS: FOLIC ACID 1 MG TABLET PO SCH (08:14)
[2018-05-10] MEDS: THIAMINE HCL 100 MG TABLET PO SCH ×2 (08:14→16:27)
[2018-05-10] MEDS: ARIPiprazole 5 MG TABLET PO SCH (08:15)
[2018-05-10] MEDS: LISINOPRIL 20 MG TABLET PO SCH (08:15)
[2018-05-10] MEDS: ACAMPROSATE CALCIUM 333 MG DR TABLET PO SCH ×3 (08:15→16:27)
[2018-05-10 08:32] VITALS: BP 155/83
[2018-05-10 10:12] VITALS: BP 143/78
[2018-05-10 16:23] VITALS: BP 138/90
[2018-05-10] MEDS: LORazepam 2 MG TABLET PO PRN (16:27)
[2018-05-10] MEDS: HALOPERIDOL 5 MG TABLET PO PRN (17:44)
[2018-05-10] MEDS: MIRTAZAPINE 15 MG TABLET PO SCH (20:51)
[2018-05-10] MEDS: METOPROLOL TARTRATE 25 MG TABLET PO SCH (20:51)
[2018-05-11 05:15] VITALS: BP 136/84
[2018-05-11] MEDS: DULoxetine HCL 60 MG CAPSULE PO SCH (08:35)
[2018-05-11] MEDS: ARIPiprazole 5 MG TABLET PO SCH (08:35)
[2018-05-11] MEDS: ACAMPROSATE CALCIUM 333 MG DR TABLET PO SCH ×3 (08:35→16:18)
[2018-05-11] MEDS: LevETIRAcetam 500 MG TABLET PO SCH ×2 (08:35→16:17)
[2018-05-11] MEDS: METHADONE HCL 10 MG TABLET PO SCH (08:35)
[2018-05-11] MEDS: GABAPENTIN 400 MG CAPSULE PO SCH ×3 (08:35→16:18)
[2018-05-11] MEDS: MULTIVITAMINS WITH IRON TABLET PO SCH (08:36)
[2018-05-11] MEDS: THIAMINE HCL 100 MG TABLET PO SCH ×2 (08:36→16:17)
[2018-05-11] MEDS: LISINOPRIL 20 MG TABLET PO SCH (08:36)
[2018-05-11] MEDS: FOLIC ACID 1 MG TABLET PO SCH (08:36)
[2018-05-11 08:58] VITALS: BP 137/65
[2018-05-11 09:02] LABS: CHOL/HDL RATIO 3.1 (4.2-7.3)
[2018-05-11] MEDS: LORazepam 2 MG TABLET PO PRN (09:12)
[2018-05-11 16:13] VITALS: BP 145/94
[2018-05-11] MEDS: LORazepam 0.5 MG TABLET PO PRN (16:18)
[2018-05-11] MEDS: METOPROLOL TARTRATE 25 MG TABLET PO SCH (20:05)
[2018-05-11] MEDS: MIRTAZAPINE 15 MG TABLET PO SCH (20:05)
[2018-05-12] MEDS: ZOLPIDEM TARTRATE 10 MG TABLET PO PRN (00:14)
[2018-05-12 02:00] VITALS: BP 136/88
[2018-05-12] MEDS: FOLIC ACID 1 MG TABLET PO SCH (08:31)
[2018-05-12] MEDS: GABAPENTIN 400 MG CAPSULE PO SCH ×3 (08:31→16:11)
[2018-05-12] MEDS: DULoxetine HCL 60 MG CAPSULE PO SCH (08:31)
[2018-05-12] MEDS: ARIPiprazole 5 MG TABLET PO SCH (08:31)
[2018-05-12] MEDS: LevETIRAcetam 500 MG TABLET PO SCH ×2 (08:31→16:11)
[2018-05-12] MEDS: ACAMPROSATE CALCIUM 333 MG DR TABLET PO SCH ×3 (08:31→16:10)
[2018-05-12] MEDS: LISINOPRIL 20 MG TABLET PO SCH (08:31)
[2018-05-12] MEDS: MULTIVITAMINS WITH IRON TABLET PO SCH (08:31)
[2018-05-12] MEDS: THIAMINE HCL 100 MG TABLET PO SCH ×2 (08:32→16:11)
[2018-05-12] MEDS: METHADONE HCL 10 MG TABLET PO SCH (08:32)
[2018-05-12 09:05] VITALS: BP 137/78
[2018-05-12] MEDS: LORazepam 0.5 MG TABLET PO PRN ×3 (10:29→20:23)
[2018-05-12 16:00] VITALS: BP 146/77
[2018-05-12 20:20] VITALS: BP 140/83
[2018-05-12] MEDS: METOPROLOL TARTRATE 25 MG TABLET PO SCH (20:23)
[2018-05-12] MEDS: MIRTAZAPINE 15 MG TABLET PO SCH (20:23)
[2018-05-13] VITALS (9 sets, daily range): BP systolic 132–175; BP diastolic 79–96
[2018-05-13] MEDS: LORazepam 0.5 MG TABLET PO PRN (05:24)
[2018-05-13] MEDS: FOLIC ACID 1 MG TABLET PO SCH (08:13)
[2018-05-13] MEDS: DULoxetine HCL 60 MG CAPSULE PO SCH (08:13)
[2018-05-13] MEDS: MULTIVITAMINS WITH IRON TABLET PO SCH (08:13)
[2018-05-13] MEDS: GABAPENTIN 400 MG CAPSULE PO SCH ×3 (08:13→16:34)
[2018-05-13] MEDS: METHADONE HCL 10 MG TABLET PO SCH (08:13)
[2018-05-13] MEDS: ARIPiprazole 5 MG TABLET PO SCH (08:13)
[2018-05-13] MEDS: LISINOPRIL 20 MG TABLET PO SCH (08:13)
[2018-05-13] MEDS: THIAMINE HCL 100 MG TABLET PO SCH ×2 (08:13→16:34)
[2018-05-13] MEDS: ACAMPROSATE CALCIUM 333 MG DR TABLET PO SCH ×3 (10:26→16:34)
[2018-05-13] MEDS: LevETIRAcetam 500 MG TABLET PO SCH ×2 (10:26→16:34)
[2018-05-13] MEDS ORDERED: LISINOPRIL 20 MG TABLET PO ONE (11:00)
[2018-05-13] MEDS: METOPROLOL TARTRATE 25 MG TABLET PO SCH (20:22)
[2018-05-13] MEDS: MIRTAZAPINE 15 MG TABLET PO SCH (20:22)
[2018-05-13] MEDS ORDERED: AmLODIPine BESYLATE 10 MG TABLET PO SCH (21:00)
[2018-05-14] VITALS (8 sets, daily range): BP systolic 155–193; BP diastolic 75–100
[2018-05-14] MEDS: ZOLPIDEM TARTRATE 10 MG TABLET PO PRN (02:49)
[2018-05-14] MEDS: LORazepam 0.5 MG TABLET PO PRN (06:07)
[2018-05-14] MEDS: DULoxetine HCL 60 MG CAPSULE PO SCH (09:00)
[2018-05-14] MEDS: METHADONE HCL 10 MG TABLET PO SCH (09:00)
[2018-05-14] MEDS: LevETIRAcetam 500 MG TABLET PO SCH (09:00)
[2018-05-14] MEDS: ACAMPROSATE CALCIUM 333 MG DR TABLET PO SCH ×2 (09:00→13:00)
[2018-05-14] MEDS: ARIPiprazole 5 MG TABLET PO SCH (09:00)
[2018-05-14] MEDS: THIAMINE HCL 100 MG TABLET PO SCH (09:00)
[2018-05-14] MEDS: FOLIC ACID 1 MG TABLET PO SCH (09:00)
[2018-05-14] MEDS: GABAPENTIN 400 MG CAPSULE PO SCH ×2 (09:00→13:00)
[2018-05-14] MEDS: MULTIVITAMINS WITH IRON TABLET PO SCH (09:00)
[2018-05-14] MEDS ORDERED: LISINOPRIL 20 MG TABLET PO SCH (10:45)
== END 2018-05-14 12:30 | disposition home or self-care (01) | DRG 750 ==
LOC: EMS 08:15 → B2S 10:41
PROVIDERS: ADMIT Psychiatry & Neurology Psychiatry; ATTEND Psychiatry & Neurology Psychiatry
DX: F25.0 Schizoaffective disorder, bipolar type (principal); F33.2 Major depressive disorder, recurrent severe without psychotic features; G40.909 Epilepsy, unspecified, not intractable, without status epilepticus; I48.91 Unspecified atrial fibrillation; R45.851 Suicidal ideations; F41.9 Anxiety disorder, unspecified; F19.90 Other psychoactive substance use, unspecified, uncomplicated; I10 Essential (primary) hypertension; Z59.0 Homelessness; Z76.5 Malingerer [conscious simulation]; Z79.899 Other long term (current) drug therapy; Z80.9 Family history of malignant neoplasm, unspecified; Z87.891 Personal history of nicotine dependence; Z91.19 Patient's noncompliance with other medical treatment and regimen; Z91.5 Personal history of self-harm; Z88.0 Allergy status to penicillin; Z28.21 Immunization not carried out because of patient refusal
CPT/HCPCS: G0480

== ENCOUNTER 2018-05-14 08:01 | Emergency (ER) | payer MEDICAID, OTHER ==
[~2018-05-14] VITALS: Ht 182.9 cm; Wt 100.0 kg
[~2018-05-14 08:01] MED LIST changes: +ALBU8HFA IH; +DOXY100C PO
[2018-05-14 09:12] LABS: BASOPHILS % (AUTO) 0.4 % (0.0-2.0); EOSINOPHILS % (AUTO) 3.2 % (1.0-6.0); HEMATOCRIT 41.9 % (41-53); HEMOGLOBIN 14.2 g/dL (13.5-17.5); LYMPHOCYTES # (AUTO) 1.3 K/uL (1.0-4.8); LYMPHOCYTES % (AUTO) 24.4 % (22.0-44.0); MEAN CORPUSCULAR HEMOGLOBIN 28.6 pg (26.0-34.0); MEAN CORPUSCULAR HGB CONC 33.8 G/dL (31.0-37.0); MEAN CORPUSCULAR VOLUME 85 fL (80-100); MONOCYTES # (AUTO) 0.4 K/uL (0.1-1.0); MONOCYTES % (AUTO) 8.4 % (2.0-9.0); NEUTROPHILS # (AUTO) 3.4 K/uL (1.8-7.7); NEUTROPHILS % (AUTO) 63.6 % (40.0-70.0); PLATELET COUNT (AUTO) 222 K/uL (150-450); RED BLOOD CELL COUNT(AUTO) 4.96 MIL/uL (4.50-5.90)
[2018-05-14 09:21] LABS: ANION GAP 2 mmol/L (8-16); CALCIUM, TOTAL 9.3 mg/dL (8.8-10.5); CARBON DIOXIDE 34 mmol/L (22-29); CHLORIDE 102 mmol/L (98-107); CREATININE 0.94 mg/dL (0.60-1.30); GLOMERULAR FILTR. RATE CALC > 60 mL/min (>60); GLUCOSE,RANDOM 65 mg/dL (70-110); POTASSIUM 4.5 mmol/L (3.5-5.1); PROTHROMBIN TIME 10.7 SEC (9.4-11.6); SODIUM SERUM 138 mmol/L (136-145); UREA NITROGEN, BLOOD 18 mg/dL (7-18)
[2018-05-14 09:37] LABS: B-TYPE NATRIURETIC PEPTIDE 271 pg/mL (0-100)
[2018-05-14 09:45] LABS: ALANINE AMINOTRANSFERASE 90 U/L (12-78); ALBUMIN 3.4 g/dL (3.4-5.0); ALKALINE PHOSPHATASE 112 U/L (46-116); ASPARTATE AMINOTRANSFERASE 74 U/L (15-37); BILIRUBIN,TOTAL 0.7 mg/dL (0.1-1.0); CREATINE KINASE, TOTAL ONLY 103 U/L (39-308); TOTAL PROTEIN, SERUM 7.7 g/dL (6.4-8.2)
[2018-05-14] MEDS ORDERED: MAGNESIUM HYDROXIDE SUSPENSION 30 ML UDCUP PO PRN (10:30)
[2018-05-14] MEDS ORDERED: ALBUTEROL SULFATE 2.5 MG/0.5 ML NEB SOLUTION NEB PRN (10:30)
[2018-05-14] MEDS ORDERED: ACETAMINOPHEN 325 MG TABLET PO PRN (10:30)
[2018-05-14 10:48] LABS: THYROID STIMULATING HORMONE 2.89 uIU/mL (0.36-3.74)
[2018-05-14 11:29] VITALS: BP 145/98
[2018-05-14] MEDS: AmLODIPine BESYLATE 5 MG TABLET PO SCH (11:49)
[2018-05-14] MEDS: ASPIRIN 81 MG CHEWABLE TABLET PO SCH (11:49)
[2018-05-14 12:32] LABS: APPEARANCE,URINE CLEAR (CLEAR); BILIRUBIN,URINE NEGATIVE (NEGATIVE); GLUCOSE, URINE (UA) NEGATIVE (NEGATIVE); KETONES,URINE NEGATIVE (NEGATIVE); LEUKOCYTE ESTERASE ,URINE NEGATIVE (NEGATIVE); NITRATE,URINE NEGATIVE (NEGATIVE); OCCULT BLOOD,URINE NEGATIVE (NEGATIVE); PH,URINE 7.5 (5.0-8.0); PROTEIN,URINE NEGATIVE (NEGATIVE)
[2018-05-14 12:37] LABS: AMPHET/METH SCREEN,URINE NEGATIVE (NEGATIVE); BARBITURATE SCREEN, URINE NEGATIVE (NEGATIVE); BENZODIAZEPINES SCREEN,URINE NEGATIVE (NEGATIVE); CANNABINOID SCREEN,URINE NEGATIVE (NEGATIVE); COCAINE SCREEN,URINE NEGATIVE (NEGATIVE); METHADONE SCREEN, URINE POSITIVE (NEGATIVE); OPIATE SCREEN,URINE NEGATIVE (NEGATIVE); PHENCYCLIDINE SCREEN,URINE NEGATIVE (NEGATIVE)
[2018-05-14] MEDS ORDERED: DOCUSATE SODIUM 100 MG CAPSULE PO SCH (21:00)
[2018-05-14] MEDS ORDERED: LevETIRAcetam 500 MG TABLET PO SCH (21:00)
[2018-05-15] MEDS ORDERED: PANTOPRAZOLE SODIUM 40 MG DR TABLET PO SCH (09:00)
[2018-05-15] MEDS ORDERED: LISINOPRIL 20 MG TABLET PO SCH (09:00)
== END 2018-05-14 18:19 | disposition other institution (70) ==
LOC: EMS 08:02 → UNDOADMIN 12:20 → 5S 12:20
DX: R00.1 Bradycardia, unspecified (principal); I10 Essential (primary) hypertension; I48.91 Unspecified atrial fibrillation; F41.9 Anxiety disorder, unspecified; F12.90 Cannabis use, unspecified, uncomplicated; F11.90 Opioid use, unspecified, uncomplicated; F17.210 Nicotine dependence, cigarettes, uncomplicated; Z59.0 Homelessness; Z88.0 Allergy status to penicillin; Z79.899 Other long term (current) drug therapy
CPT/HCPCS: 83735; 84443; 93005; 93306

== ENCOUNTER 2018-08-28 18:17 | Inpatient (IN) | payer MEDICAID ==
[2018-08-28] MEDS ORDERED: HALOPERIDOL 5 MG TABLET PO PRN (19:00)
[2018-08-28] MEDS ORDERED: ZOLPIDEM TARTRATE 10 MG TABLET PO PRN (19:00)
[2018-08-28] MEDS ORDERED: LORazepam 2 MG TABLET PO PRN (19:00)
[2018-08-28] MEDS ORDERED: PNEUMOCOCCAL VACCINE POLYVALENT 0.5 ML VIAL [PPSV23] IM ONE (19:45)
[2018-08-28] MEDS ORDERED: PETROLATUM,WHITE 28 GM JELLY TP PRN (20:00)
[2018-08-28] MEDS ORDERED: MAGNESIUM HYDROXIDE SUSPENSION 30 ML UDCUP PO PRN (20:00)
[2018-08-28] MEDS ORDERED: GuaiFENesin/D-METHORPHAN [SUGAR-FREE] 200-20MG/10 ML SYRUP UDCUP PO PRN (20:00)
[2018-08-28] MEDS ORDERED: ACETAMINOPHEN 325 MG TABLET PO PRN (20:00)
[2018-08-28] MEDS ORDERED: ONDANSETRON HCL 4 MG TABLET PO PRN (20:00)
[2018-08-28] MEDS ORDERED: MAG HYDROX/AL HYDROX/SIMETH ES 30 ML SUSPENSION UDCUP PO PRN (20:00)
[2018-08-28] MEDS ORDERED: NICOTINE 14 MG/24 HOUR PATCH TD PRN (20:00)
[2018-08-28] MEDS ORDERED: DOCUSATE SODIUM 100 MG CAPSULE PO PRN (20:00)
[2018-08-28] MEDS ORDERED: IBUPROFEN 400 MG TABLET PO PRN (20:00)
[2018-08-28] MEDS ORDERED: ALBUTEROL SULFATE HFA 90 MCG/PUFF 8 GM INHALER IH PRN (20:00)
[2018-08-28] MEDS ORDERED: LOPERAMIDE HCL 2 MG CAPSULE PO PRN (20:00)
[2018-08-28] MEDS: CloNIDine HCL 0.1 MG TABLET PO PRN (20:24)
[2018-08-28] MEDS: DOXYCYCLINE HYCLATE 100 MG CAPSULE PO SCH (20:24)
[2018-08-28 21:38] VITALS: BP 146/67
[2018-08-29 05:25] VITALS: BP 183/99
[2018-08-29] MEDS: CloNIDine HCL 0.1 MG TABLET PO PRN (06:24)
[2018-08-29 07:21] VITALS: BP 153/90
[2018-08-29 07:24] VITALS: BP 155/93
[2018-08-29] MEDS: LevETIRAcetam 500 MG TABLET PO SCH ×2 (08:09→16:22)
[2018-08-29] MEDS: DOXYCYCLINE HYCLATE 100 MG CAPSULE PO SCH ×2 (08:09→20:03)
[2018-08-29] MEDS: LISINOPRIL 20 MG TABLET PO SCH ×2 (08:10→16:22)
[2018-08-29 08:32] LABS: BASOPHILS % (AUTO) 0.3 % (0.0-2.0); EOSINOPHILS % (AUTO) 2.4 % (1.0-6.0); HEMATOCRIT 39.5 % (41-53); HEMOGLOBIN 13.2 g/dL (13.5-17.5); LYMPHOCYTES # (AUTO) 1.1 K/uL (1.0-4.8); LYMPHOCYTES % (AUTO) 10.4 % (22.0-44.0); MEAN CORPUSCULAR HEMOGLOBIN 28.3 pg (26.0-34.0); MEAN CORPUSCULAR HGB CONC 33.5 G/dL (31.0-37.0); MEAN CORPUSCULAR VOLUME 84 fL (80-100); MONOCYTES # (AUTO) 0.6 K/uL (0.1-1.0); MONOCYTES % (AUTO) 5.8 % (2.0-9.0); NEUTROPHILS # (AUTO) 8.4 K/uL (1.8-7.7); NEUTROPHILS % (AUTO) 81.1 % (40.0-70.0); PLATELET COUNT (AUTO) 274 K/uL (150-450); RED BLOOD CELL COUNT(AUTO) 4.68 MIL/uL (4.50-5.90); RED CELL DISTRIBUTION WIDTH 15.1 % (11.5-14.5)
[2018-08-29 08:42] LABS: HEMOGLOBIN A1C 6.1 % (4.5-6.2)
[2018-08-29 09:12] LABS: ALANINE AMINOTRANSFERASE 28 U/L (12-78); ALBUMIN 3.2 g/dL (3.4-5.0); ALKALINE PHOSPHATASE 95 U/L (46-116); ANION GAP 10 mmol/L (8-16); ASPARTATE AMINOTRANSFERASE 29 U/L (15-37); BILIRUBIN,TOTAL 0.9 mg/dL (0.1-1.0); CARBON DIOXIDE 27 mmol/L (22-29); CHLORIDE 104 mmol/L (98-107); CHOL/HDL RATIO 3.1 (4.2-7.3); CHOLESTEROL 128 mg/dL (131-200); CREATININE 0.79 mg/dL (0.60-1.30); FREE T4 (FREE THYROXINE) 1.13 ng/dL (0.76-1.46); GLOMERULAR FILTR. RATE CALC > 60 mL/min (>60); GLUCOSE,RANDOM 95 mg/dL (70-110); HDL CHOLESTEROL 41 mg/dL (40-60); LDL CHOL (CALC.) 71 mg/dL (0-130); POTASSIUM 3.8 mmol/L (3.5-5.1); SODIUM SERUM 141 mmol/L (136-145); THYROID STIMULATING HORMONE 1.06 uIU/mL (0.36-3.74); TOTAL PROTEIN, SERUM 6.3 g/dL (6.4-8.2); TRIGLYCERIDES 80 mg/dL (15-150); UREA NITROGEN, BLOOD 15 mg/dL (7-18)
[2018-08-29 12:05] VITALS: BP 132/71
[2018-08-29] MEDS: ARIPiprazole 10 MG TABLET PO SCH (12:36)
[2018-08-29] MEDS: METHADONE HCL 10 MG TABLET PO SCH (12:36)
[2018-08-29] MEDS: DULoxetine HCL 60 MG CAPSULE PO SCH (12:36)
[2018-08-29] MEDS: GABAPENTIN 400 MG CAPSULE PO SCH ×2 (13:06→16:22)
[2018-08-29 16:24] VITALS: BP 138/83
[2018-08-29] MEDS: HydrALAZINE HCL 10 MG TABLET PO SCH (20:03)
[2018-08-29] MEDS: MIRTAZAPINE 15 MG TABLET PO SCH (20:03)
[2018-08-30 04:33] VITALS: BP 141/76
[2018-08-30] MEDS: GABAPENTIN 400 MG CAPSULE PO SCH ×3 (09:23→17:00)
[2018-08-30] MEDS: DOXYCYCLINE HYCLATE 100 MG CAPSULE PO SCH ×2 (09:24→20:24)
[2018-08-30] MEDS: ARIPiprazole 10 MG TABLET PO SCH (09:24)
[2018-08-30] MEDS: LevETIRAcetam 500 MG TABLET PO SCH ×2 (09:24→17:00)
[2018-08-30] MEDS: HydrALAZINE HCL 10 MG TABLET PO SCH ×2 (09:24→20:24)
[2018-08-30] MEDS: DULoxetine HCL 60 MG CAPSULE PO SCH (09:24)
[2018-08-30] MEDS: METHADONE HCL 10 MG TABLET PO SCH (09:25)
[2018-08-30] MEDS: LISINOPRIL 20 MG TABLET PO SCH ×2 (09:25→17:00)
[2018-08-30 09:41] VITALS: BP 136/78
[2018-08-30 16:06] VITALS: BP 125/70
[2018-08-30] MEDS: MIRTAZAPINE 15 MG TABLET PO SCH (20:24)
[2018-08-31 00:28] VITALS: BP 141/79
[2018-08-31 08:14] VITALS: BP 152/79
[2018-08-31] MEDS: ARIPiprazole 10 MG TABLET PO SCH (08:26)
[2018-08-31] MEDS: GABAPENTIN 400 MG CAPSULE PO SCH ×3 (08:26→17:08)
[2018-08-31] MEDS: LISINOPRIL 20 MG TABLET PO SCH ×2 (08:27→17:08)
[2018-08-31] MEDS: LevETIRAcetam 500 MG TABLET PO SCH ×2 (08:27→17:08)
[2018-08-31] MEDS: DULoxetine HCL 60 MG CAPSULE PO SCH (08:27)
[2018-08-31] MEDS: DOXYCYCLINE HYCLATE 100 MG CAPSULE PO SCH ×2 (08:27→20:40)
[2018-08-31] MEDS: HydrALAZINE HCL 10 MG TABLET PO SCH ×2 (08:27→20:40)
[2018-08-31] MEDS: METHADONE HCL 10 MG TABLET PO SCH (08:28)
[2018-08-31 16:28] VITALS: BP 137/72
[2018-08-31] MEDS: MIRTAZAPINE 15 MG TABLET PO SCH (20:40)
[2018-09-01 06:07] VITALS: BP 135/84
[2018-09-01 08:02] VITALS: BP 129/56
[2018-09-01] MEDS: GABAPENTIN 400 MG CAPSULE PO SCH ×3 (08:18→16:56)
[2018-09-01] MEDS: DULoxetine HCL 60 MG CAPSULE PO SCH (08:18)
[2018-09-01] MEDS: LISINOPRIL 20 MG TABLET PO SCH ×2 (08:18→16:56)
[2018-09-01] MEDS: DOXYCYCLINE HYCLATE 100 MG CAPSULE PO SCH ×2 (08:18→20:38)
[2018-09-01] MEDS: METHADONE HCL 10 MG TABLET PO SCH (08:18)
[2018-09-01] MEDS: LevETIRAcetam 500 MG TABLET PO SCH ×2 (08:18→16:56)
[2018-09-01] MEDS: ARIPiprazole 10 MG TABLET PO SCH (08:19)
[2018-09-01] MEDS: HydrALAZINE HCL 10 MG TABLET PO SCH ×2 (08:29→20:38)
[2018-09-01 16:00] VITALS: BP 124/67
[2018-09-01] MEDS: MIRTAZAPINE 15 MG TABLET PO SCH (20:38)
[2018-09-02 04:00] VITALS: BP 120/68
[2018-09-02 08:00] VITALS: BP 131/73
[2018-09-02] MEDS: LISINOPRIL 20 MG TABLET PO SCH ×2 (08:16→16:11)
[2018-09-02] MEDS: HydrALAZINE HCL 10 MG TABLET PO SCH ×2 (08:16→20:35)
[2018-09-02] MEDS: DULoxetine HCL 60 MG CAPSULE PO SCH (08:16)
[2018-09-02] MEDS: GABAPENTIN 400 MG CAPSULE PO SCH ×3 (08:16→16:10)
[2018-09-02] MEDS: DOXYCYCLINE HYCLATE 100 MG CAPSULE PO SCH ×2 (08:16→20:36)
[2018-09-02] MEDS: ARIPiprazole 10 MG TABLET PO SCH (08:16)
[2018-09-02] MEDS: METHADONE HCL 10 MG TABLET PO SCH (08:16)
[2018-09-02] MEDS: LevETIRAcetam 500 MG TABLET PO SCH ×2 (08:17→16:10)
[2018-09-02 16:43] VITALS: BP 134/82
[2018-09-02] MEDS: MIRTAZAPINE 15 MG TABLET PO SCH (20:36)
[2018-09-03 07:02] VITALS: BP 128/78
[2018-09-03] MEDS: HydrALAZINE HCL 10 MG TABLET PO SCH ×2 (08:33→21:17)
[2018-09-03] MEDS: DOXYCYCLINE HYCLATE 100 MG CAPSULE PO SCH ×2 (08:33→21:18)
[2018-09-03] MEDS: GABAPENTIN 400 MG CAPSULE PO SCH ×3 (08:33→16:33)
[2018-09-03] MEDS: LISINOPRIL 20 MG TABLET PO SCH ×2 (08:33→16:33)
[2018-09-03] MEDS: ARIPiprazole 10 MG TABLET PO SCH (08:33)
[2018-09-03] MEDS: METHADONE HCL 10 MG TABLET PO SCH (08:34)
[2018-09-03] MEDS: DULoxetine HCL 60 MG CAPSULE PO SCH (08:34)
[2018-09-03] MEDS: LevETIRAcetam 500 MG TABLET PO SCH ×2 (08:34→16:33)
[2018-09-03 08:47] VITALS: BP 127/53
[2018-09-03 16:00] VITALS: BP 112/65
[2018-09-03] MEDS: MIRTAZAPINE 15 MG TABLET PO SCH (21:17)
[2018-09-04 02:39] VITALS: BP 164/96
[2018-09-04] MEDS: LISINOPRIL 20 MG TABLET PO SCH ×2 (08:12→16:53)
[2018-09-04] MEDS: METHADONE HCL 10 MG TABLET PO SCH (08:13)
[2018-09-04] MEDS: GABAPENTIN 400 MG CAPSULE PO SCH ×2 (08:13→13:24)
[2018-09-04] MEDS: LevETIRAcetam 500 MG TABLET PO SCH ×2 (08:13→16:53)
[2018-09-04] MEDS: HydrALAZINE HCL 10 MG TABLET PO SCH ×2 (08:13→20:52)
[2018-09-04] MEDS: ARIPiprazole 10 MG TABLET PO SCH (08:13)
[2018-09-04] MEDS: DULoxetine HCL 60 MG CAPSULE PO SCH (08:17)
[2018-09-04] MEDS: DOXYCYCLINE HYCLATE 100 MG CAPSULE PO SCH ×2 (08:20→20:52)
[2018-09-04 09:05] VITALS: BP 138/64
[2018-09-04 16:11] VITALS: BP_SYST 117; BP_SYST 131; BP_DIAS 75; BP_DIAS 84
[2018-09-04] MEDS: GABAPENTIN 300 MG CAPSULE PO SCH (16:52)
[2018-09-04] MEDS: GABAPENTIN 100 MG CAPSULE PO SCH (16:53)
[2018-09-04] MEDS: MIRTAZAPINE 15 MG TABLET PO SCH (20:52)
[2018-09-05 04:42] VITALS: BP 116/82
[2018-09-05] MEDS: DOXYCYCLINE HYCLATE 100 MG CAPSULE PO SCH ×2 (08:16→20:49)
[2018-09-05] MEDS: LISINOPRIL 20 MG TABLET PO SCH ×2 (08:16→17:04)
[2018-09-05] MEDS: LevETIRAcetam 500 MG TABLET PO SCH ×2 (08:16→17:04)
[2018-09-05] MEDS: DULoxetine HCL 60 MG CAPSULE PO SCH (08:16)
[2018-09-05] MEDS: ARIPiprazole 15 MG TABLET PO SCH (08:16)
[2018-09-05] MEDS: HydrALAZINE HCL 10 MG TABLET PO SCH ×2 (08:16→20:49)
[2018-09-05] MEDS: GABAPENTIN 300 MG CAPSULE PO SCH ×3 (08:16→17:05)
[2018-09-05] MEDS: METHADONE HCL 10 MG TABLET PO SCH (08:18)
[2018-09-05] MEDS: GABAPENTIN 100 MG CAPSULE PO SCH ×3 (08:18→17:05)
[2018-09-05 08:45] VITALS: BP 154/76
[2018-09-05 13:52] VITALS: BP 173/100
[2018-09-05] MEDS: CloNIDine HCL 0.1 MG TABLET PO PRN (13:53)
[2018-09-05 14:51] VITALS: BP 142/67
[2018-09-05] MEDS ORDERED: LORazepam 0.5 MG TABLET PO PRN (15:00)
[2018-09-05 16:00] VITALS: BP 156/86
[2018-09-05] MEDS: MIRTAZAPINE 15 MG TABLET PO SCH (20:49)
[2018-09-06 00:07] VITALS: BP 130/75
[2018-09-06 08:00] VITALS: BP 141/75
[2018-09-06] MEDS: ARIPiprazole 15 MG TABLET PO SCH (08:17)
[2018-09-06] MEDS: LISINOPRIL 20 MG TABLET PO SCH ×2 (08:17→16:54)
[2018-09-06] MEDS: GABAPENTIN 100 MG CAPSULE PO SCH ×3 (08:17→16:54)
[2018-09-06] MEDS: METHADONE HCL 10 MG TABLET PO SCH (08:17)
[2018-09-06] MEDS: GABAPENTIN 300 MG CAPSULE PO SCH ×3 (08:17→16:54)
[2018-09-06] MEDS: HydrALAZINE HCL 10 MG TABLET PO SCH ×2 (08:18→21:38)
[2018-09-06] MEDS: DOXYCYCLINE HYCLATE 100 MG CAPSULE PO SCH ×2 (08:18→21:38)
[2018-09-06] MEDS: DULoxetine HCL 30 MG CAPSULE PO SCH (08:18)
[2018-09-06] MEDS: LevETIRAcetam 500 MG TABLET PO SCH ×2 (08:18→16:54)
[2018-09-06] MEDS: AmLODIPine BESYLATE 5 MG TABLET PO SCH (08:18)
[2018-09-06 16:59] VITALS: BP 126/73
[2018-09-06] MEDS: MIRTAZAPINE 15 MG TABLET PO SCH (21:38)
[2018-09-07 05:18] VITALS: BP 132/74
[2018-09-07 08:13] VITALS: BP 155/79
[2018-09-07] MEDS: DOXYCYCLINE HYCLATE 100 MG CAPSULE PO SCH ×2 (08:23→21:10)
[2018-09-07] MEDS: LevETIRAcetam 500 MG TABLET PO SCH ×2 (08:23→16:54)
[2018-09-07] MEDS: ARIPiprazole 10 MG TABLET PO SCH (08:24)
[2018-09-07] MEDS: HydrALAZINE HCL 10 MG TABLET PO SCH ×2 (08:24→21:10)
[2018-09-07] MEDS: AmLODIPine BESYLATE 5 MG TABLET PO SCH (08:24)
[2018-09-07] MEDS: GABAPENTIN 300 MG CAPSULE PO SCH ×3 (08:24→16:53)
[2018-09-07] MEDS: GABAPENTIN 100 MG CAPSULE PO SCH ×3 (08:24→16:53)
[2018-09-07] MEDS: DULoxetine HCL 30 MG CAPSULE PO SCH (08:24)
[2018-09-07] MEDS: METHADONE HCL 10 MG TABLET PO SCH (08:25)
[2018-09-07] MEDS: LISINOPRIL 20 MG TABLET PO SCH ×2 (08:25→16:53)
[2018-09-07 16:28] VITALS: BP 118/75
[2018-09-07] MEDS: MIRTAZAPINE 15 MG TABLET PO SCH (21:10)
[2018-09-08 06:26] VITALS: BP 151/84
[2018-09-08 08:02] VITALS: BP 133/72
[2018-09-08] MEDS: ARIPiprazole 10 MG TABLET PO SCH (08:09)
[2018-09-08] MEDS: DULoxetine HCL 30 MG CAPSULE PO SCH (08:09)
[2018-09-08] MEDS: DOXYCYCLINE HYCLATE 100 MG CAPSULE PO SCH ×2 (08:10→20:50)
[2018-09-08] MEDS: LISINOPRIL 20 MG TABLET PO SCH ×2 (08:10→17:11)
[2018-09-08] MEDS: LevETIRAcetam 500 MG TABLET PO SCH ×2 (08:10→17:10)
[2018-09-08] MEDS: AmLODIPine BESYLATE 5 MG TABLET PO SCH (08:10)
[2018-09-08] MEDS: GABAPENTIN 300 MG CAPSULE PO SCH ×3 (08:10→17:10)
[2018-09-08] MEDS: GABAPENTIN 100 MG CAPSULE PO SCH ×3 (08:10→17:13)
[2018-09-08] MEDS: METHADONE HCL 10 MG TABLET PO SCH (08:11)
[2018-09-08] MEDS: HydrALAZINE HCL 10 MG TABLET PO SCH ×2 (09:01→20:50)
[2018-09-08 16:04] VITALS: BP 118/62
[2018-09-08] MEDS: MIRTAZAPINE 15 MG TABLET PO SCH (20:50)
[2018-09-09 07:11] VITALS: BP 112/65
[2018-09-09 08:12] VITALS: BP 140/74
[2018-09-09] MEDS: ARIPiprazole 10 MG TABLET PO SCH (08:12)
[2018-09-09] MEDS: METHADONE HCL 10 MG TABLET PO SCH (08:12)
[2018-09-09] MEDS: LevETIRAcetam 500 MG TABLET PO SCH ×2 (08:13→17:05)
[2018-09-09] MEDS: AmLODIPine BESYLATE 5 MG TABLET PO SCH (08:13)
[2018-09-09] MEDS: GABAPENTIN 100 MG CAPSULE PO SCH ×3 (08:14→17:05)
[2018-09-09] MEDS: GABAPENTIN 300 MG CAPSULE PO SCH ×3 (08:14→17:05)
[2018-09-09] MEDS: DOXYCYCLINE HYCLATE 100 MG CAPSULE PO SCH ×2 (08:14→21:03)
[2018-09-09] MEDS: HydrALAZINE HCL 10 MG TABLET PO SCH ×2 (08:14→21:03)
[2018-09-09] MEDS: LISINOPRIL 20 MG TABLET PO SCH ×2 (08:14→17:05)
[2018-09-09] MEDS: DULoxetine HCL 30 MG CAPSULE PO SCH (08:14)
[2018-09-09 16:03] VITALS: BP 117/81
[2018-09-09] MEDS: MIRTAZAPINE 15 MG TABLET PO SCH (21:03)
[2018-09-10 03:18] VITALS: BP 124/73
[2018-09-10] MEDS: METHADONE HCL 10 MG TABLET PO SCH (08:10)
[2018-09-10] MEDS: LISINOPRIL 20 MG TABLET PO SCH ×2 (08:10→16:55)
[2018-09-10] MEDS: ARIPiprazole 10 MG TABLET PO SCH (08:10)
[2018-09-10] MEDS: GABAPENTIN 300 MG CAPSULE PO SCH ×3 (08:11→16:55)
[2018-09-10] MEDS: AmLODIPine BESYLATE 5 MG TABLET PO SCH (08:11)
[2018-09-10] MEDS: GABAPENTIN 100 MG CAPSULE PO SCH ×3 (08:11→16:55)
[2018-09-10] MEDS: LevETIRAcetam 500 MG TABLET PO SCH ×2 (08:11→16:55)
[2018-09-10] MEDS: DOXYCYCLINE HYCLATE 100 MG CAPSULE PO SCH ×2 (08:11→20:34)
[2018-09-10] MEDS: DULoxetine HCL 30 MG CAPSULE PO SCH (08:11)
[2018-09-10] MEDS: HydrALAZINE HCL 10 MG TABLET PO SCH ×2 (08:11→20:34)
[2018-09-10 09:30] VITALS: BP 138/78
[2018-09-10 16:16] VITALS: BP 120/70
[2018-09-10] MEDS: MIRTAZAPINE 15 MG TABLET PO SCH (20:33)
[2018-09-11 06:56] VITALS: BP 118/80
[2018-09-11] MEDS: ARIPiprazole 10 MG TABLET PO SCH (08:15)
[2018-09-11] MEDS: DOXYCYCLINE HYCLATE 100 MG CAPSULE PO SCH ×2 (08:15→20:40)
[2018-09-11] MEDS: GABAPENTIN 300 MG CAPSULE PO SCH ×3 (08:15→16:42)
[2018-09-11] MEDS: AmLODIPine BESYLATE 5 MG TABLET PO SCH (08:15)
[2018-09-11] MEDS: DULoxetine HCL 30 MG CAPSULE PO SCH (08:15)
[2018-09-11] MEDS: LevETIRAcetam 500 MG TABLET PO SCH ×2 (08:15→16:42)
[2018-09-11] MEDS: LISINOPRIL 20 MG TABLET PO SCH ×2 (08:15→16:42)
[2018-09-11] MEDS: METHADONE HCL 10 MG TABLET PO SCH (08:16)
[2018-09-11] MEDS: HydrALAZINE HCL 10 MG TABLET PO SCH ×2 (08:16→20:40)
[2018-09-11] MEDS: GABAPENTIN 100 MG CAPSULE PO SCH ×3 (08:16→16:42)
[2018-09-11 14:07] VITALS: BP 110/66
[2018-09-11 16:06] VITALS: BP 130/74
[2018-09-11] MEDS ORDERED: LEVE500T53 PO (16:24)
[2018-09-11] MEDS ORDERED: GABA-529 PO (16:24)
[2018-09-11] MEDS ORDERED: ARIP10TA8 PO (16:24)
[2018-09-11] MEDS ORDERED: DULO30CA2 PO (16:24)
[2018-09-11] MEDS ORDERED: MIRT15 PO (16:24)
[2018-09-11] MEDS: MIRTAZAPINE 15 MG TABLET PO SCH (20:40)
[2018-09-12 06:24] VITALS: BP 132/78
[2018-09-12] MEDS: DULoxetine HCL 30 MG CAPSULE PO SCH (08:08)
[2018-09-12] MEDS: GABAPENTIN 100 MG CAPSULE PO SCH (08:08)
[2018-09-12] MEDS: HydrALAZINE HCL 10 MG TABLET PO SCH (08:08)
[2018-09-12] MEDS: LevETIRAcetam 500 MG TABLET PO SCH (08:08)
[2018-09-12] MEDS: ARIPiprazole 10 MG TABLET PO SCH (08:08)
[2018-09-12] MEDS: GABAPENTIN 300 MG CAPSULE PO SCH (08:08)
[2018-09-12] MEDS: AmLODIPine BESYLATE 5 MG TABLET PO SCH (08:08)
[2018-09-12] MEDS: LISINOPRIL 20 MG TABLET PO SCH (08:09)
[2018-09-12] MEDS: METHADONE HCL 10 MG TABLET PO SCH (08:09)
[2018-09-12] MEDS: DOXYCYCLINE HYCLATE 100 MG CAPSULE PO SCH (09:22)
[2018-09-12] MEDS ORDERED: GABA-531 PO (10:01)
[2018-09-12] MEDS ORDERED: LISI-662 PO (10:01)
[2018-09-12] MEDS ORDERED: AMLO-511 PO (10:02)
[2018-09-12] MEDS ORDERED: ARIP10TA8 PO (10:07)
[2018-09-12] MEDS ORDERED: DULO30CA2 PO (10:09)
[2018-09-12] MEDS ORDERED: DOXYCYCLINE HYCLATE 100 MG CAPSULE PO SCH (21:00)
[2018-09-13] MEDS ORDERED: AmLODIPine BESYLATE 5 MG TABLET PO SCH (09:00)
== END 2018-09-12 09:45 | disposition home or self-care (01) | DRG 750 ==
LOC: B3A 18:52
PROVIDERS: ADMIT Psychiatry & Neurology Child & Adolescent Psychiatry; ATTEND Psychiatry & Neurology Psychiatry
DX: F25.0 Schizoaffective disorder, bipolar type (principal); I48.91 Unspecified atrial fibrillation; R45.851 Suicidal ideations; G40.909 Epilepsy, unspecified, not intractable, without status epilepticus; D64.9 Anemia, unspecified; F10.10 Alcohol abuse, uncomplicated; F15.90 Other stimulant use, unspecified, uncomplicated; F17.200 Nicotine dependence, unspecified, uncomplicated; F41.9 Anxiety disorder, unspecified; G89.4 Chronic pain syndrome; I10 Essential (primary) hypertension; J45.909 Unspecified asthma, uncomplicated; Z59.0 Homelessness; Z91.19 Patient's noncompliance with other medical treatment and regimen; Z88.0 Allergy status to penicillin; Z79.899 Other long term (current) drug therapy
CPT/HCPCS: 83036; 84439; 84443; J3535

== ENCOUNTER 2018-09-13 22:47 | Inpatient (IN) | payer MEDICAID ==
[~2018-09-13 22:47] MED LIST changes: +AMLO-511 PO; +ARIP10TA8 PO; -ARIP5TAB8 PO; +DULO30CA2 PO; -DULO60CA44 PO; +GABA-529 PO; +GABA-531 PO; -GABA-533 PO
[2018-09-13] MEDS ORDERED: LORazepam 2 MG/ML VIAL ONE (22:57)
[2018-09-13] MEDS ORDERED: DiphenhydrAMINE HCL 50 MG/ML VIAL ONE (22:57)
[2018-09-13] MEDS ORDERED: HALOPERIDOL LACTATE 5 MG/ML VIAL ONE (22:57)
[2018-09-13] MEDS ORDERED: HALOPERIDOL LACTATE 5 MG/ML VIAL IM ONE (23:00)
[2018-09-13] MEDS ORDERED: LORazepam 2 MG/ML VIAL IM ONE (23:00)
[2018-09-13] MEDS ORDERED: DiphenhydrAMINE HCL 50 MG/ML VIAL IM ONE (23:00)
[2018-09-14] MEDS ORDERED: ACETAMINOPHEN 325 MG TABLET PO PRN (07:00)
[2018-09-14] MEDS ORDERED: PROMETHAZINE HCL 25 MG TABLET PO PRN (07:00)
[2018-09-14] MEDS ORDERED: GuaiFENesin/D-METHORPHAN [SUGAR-FREE] 200-20MG/10 ML SYRUP UDCUP PO PRN (07:00)
[2018-09-14] MEDS ORDERED: MAG HYDROX/AL HYDROX/SIMETH ES 30 ML SUSPENSION UDCUP PO PRN (07:00)
[2018-09-14] MEDS ORDERED: LOPERAMIDE HCL 2 MG CAPSULE PO PRN (07:00)
[2018-09-14] MEDS ORDERED: HydrOXYzine PAMOATE 50 MG CAPSULE PO PRN (07:00)
[2018-09-14] MEDS ORDERED: MAGNESIUM HYDROXIDE SUSPENSION 30 ML UDCUP PO PRN (07:00)
[2018-09-14 08:38] LABS: BASOPHILS % (AUTO) 0.7 % (0.0-2.0); EOSINOPHILS % (AUTO) 4.5 % (1.0-6.0); HEMATOCRIT 39.7 % (41-53); HEMOGLOBIN 12.9 g/dL (13.5-17.5); LYMPHOCYTES # (AUTO) 1.6 K/uL (1.0-4.8); LYMPHOCYTES % (AUTO) 27.9 % (22.0-44.0); MEAN CORPUSCULAR HEMOGLOBIN 27.9 pg (26.0-34.0); MEAN CORPUSCULAR HGB CONC 32.5 G/dL (31.0-37.0); MEAN CORPUSCULAR VOLUME 86 fL (80-100); MONOCYTES # (AUTO) 0.6 K/uL (0.1-1.0); MONOCYTES % (AUTO) 10.3 % (2.0-9.0); NEUTROPHILS # (AUTO) 3.3 K/uL (1.8-7.7); NEUTROPHILS % (AUTO) 56.6 % (40.0-70.0); PLATELET COUNT (AUTO) 175 K/uL (150-450); RED BLOOD CELL COUNT(AUTO) 4.62 MIL/uL (4.50-5.90); RED CELL DISTRIBUTION WIDTH 15.2 % (11.5-14.5)
[2018-09-14] MEDS: ARIPiprazole 10 MG TABLET PO SCH (08:39)
[2018-09-14] MEDS: GABAPENTIN 300 MG CAPSULE PO SCH ×2 (08:39→12:54)
[2018-09-14] MEDS: FOLIC ACID 1 MG TABLET PO SCH (08:40)
[2018-09-14] MEDS: MULTIVITAMINS WITH MINERALS, THERAPEUTIC TABLET PO SCH (08:40)
[2018-09-14] MEDS: THIAMINE HCL 100 MG TABLET PO SCH ×2 (08:40→17:02)
[2018-09-14] MEDS ORDERED: ARIPiprazole ER SUSPENSION 400 MG PRE-FILLED DUAL CHAMBER SYRINGE IM ONE (08:45)
[2018-09-14] MEDS ORDERED: GABAPENTIN 300 MG CAPSULE PO SCH (09:00)
[2018-09-14] MEDS ORDERED: ARIPiprazole ER SUSPENSION 400 MG PRE-FILLED DUAL CHAMBER SYRINGE IM SCH (09:00)
[2018-09-14] MEDS ORDERED: DULoxetine HCL 30 MG CAPSULE PO SCH (09:00)
[2018-09-14 09:11] LABS: ALANINE AMINOTRANSFERASE 69 U/L (12-78); ALBUMIN 3.5 g/dL (3.4-5.0); ALKALINE PHOSPHATASE 102 U/L (46-116); ANION GAP 7 mmol/L (8-16); ASPARTATE AMINOTRANSFERASE 58 U/L (15-37); BILIRUBIN,TOTAL 0.8 mg/dL (0.1-1.0); CALCIUM, TOTAL 8.8 mg/dL (8.8-10.5); CARBON DIOXIDE 30 mmol/L (22-29); CHLORIDE 107 mmol/L (98-107); CHOL/HDL RATIO 2.4 (4.2-7.3); CHOLESTEROL 136 mg/dL (131-200); CREATININE 0.85 mg/dL (0.60-1.30); FREE T4 (FREE THYROXINE) 1.13 ng/dL (0.76-1.46); GLOMERULAR FILTR. RATE CALC > 60 mL/min (>60); GLUCOSE,RANDOM 71 mg/dL (70-110); HDL CHOLESTEROL 57 mg/dL (40-60); LDL CHOL (CALC.) 73 mg/dL (0-130); POTASSIUM 4.4 mmol/L (3.5-5.1); SODIUM SERUM 144 mmol/L (136-145); THYROID STIMULATING HORMONE 3.85 uIU/mL (0.36-3.74); TOTAL PROTEIN, SERUM 6.7 g/dL (6.4-8.2); TRIGLYCERIDES 29 mg/dL (15-150); UREA NITROGEN, BLOOD 25 mg/dL (7-18)
[2018-09-14 16:49] VITALS: BP 116/63
[2018-09-14] MEDS: GABAPENTIN 400 MG CAPSULE PO SCH (17:02)
[2018-09-14] MEDS: LORazepam 2 MG TABLET PO PRN (20:32)
[2018-09-14] MEDS: MIRTAZAPINE 15 MG TABLET PO SCH (20:32)
[2018-09-15 01:40] VITALS: BP 137/77
[2018-09-15] MEDS: ZOLPIDEM TARTRATE 10 MG TABLET PO PRN ×2 (01:46→21:10)
[2018-09-15] MEDS: MULTIVITAMINS WITH MINERALS, THERAPEUTIC TABLET PO SCH (08:35)
[2018-09-15] MEDS: FOLIC ACID 1 MG TABLET PO SCH (08:35)
[2018-09-15] MEDS: ARIPiprazole 10 MG TABLET PO SCH (08:35)
[2018-09-15] MEDS: GABAPENTIN 400 MG CAPSULE PO SCH ×3 (08:35→16:47)
[2018-09-15] MEDS: LORazepam 2 MG TABLET PO PRN ×2 (08:35→16:47)
[2018-09-15] MEDS: THIAMINE HCL 100 MG TABLET PO SCH ×2 (08:36→16:47)
[2018-09-15] MEDS: METHADONE HCL 10 MG TABLET PO SCH (10:03)
[2018-09-15 10:23] VITALS: BP 126/76
[2018-09-15 16:14] VITALS: BP 138/62
[2018-09-15] MEDS: OLANZapine 5 MG RAPDIS TABLET PO PRN (16:47)
[2018-09-15] MEDS: MIRTAZAPINE 15 MG TABLET PO SCH (21:10)
[2018-09-16 06:11] VITALS: BP 127/75
[2018-09-16 08:16] VITALS: BP 131/75
[2018-09-16] MEDS: ARIPiprazole 10 MG TABLET PO SCH (08:40)
[2018-09-16] MEDS: MULTIVITAMINS WITH MINERALS, THERAPEUTIC TABLET PO SCH (08:40)
[2018-09-16] MEDS: FOLIC ACID 1 MG TABLET PO SCH (08:40)
[2018-09-16] MEDS: METHADONE HCL 10 MG TABLET PO SCH (08:40)
[2018-09-16] MEDS: THIAMINE HCL 100 MG TABLET PO SCH ×2 (08:40→16:08)
[2018-09-16] MEDS: GABAPENTIN 400 MG CAPSULE PO SCH ×3 (08:40→16:08)
[2018-09-16 09:17] LABS: APPEARANCE,URINE CLEAR (CLEAR); BILIRUBIN,URINE NEGATIVE (NEGATIVE); GLUCOSE, URINE (UA) NEGATIVE (NEGATIVE); KETONES,URINE NEGATIVE (NEGATIVE); LEUKOCYTE ESTERASE ,URINE NEGATIVE (NEGATIVE); NITRATE,URINE NEGATIVE (NEGATIVE); OCCULT BLOOD,URINE NEGATIVE (NEGATIVE); PROTEIN,URINE NEGATIVE (NEGATIVE)
[2018-09-16 09:22] LABS: AMPHET/METH SCREEN,URINE POSITIVE (NEGATIVE); BARBITURATE SCREEN, URINE NEGATIVE (NEGATIVE); BENZODIAZEPINES SCREEN,URINE NEGATIVE (NEGATIVE); CANNABINOID SCREEN,URINE POSITIVE (NEGATIVE); COCAINE SCREEN,URINE NEGATIVE (NEGATIVE); METHADONE SCREEN, URINE POSITIVE (NEGATIVE); OPIATE SCREEN,URINE NEGATIVE (NEGATIVE)
[2018-09-16 09:23] LABS: PHENCYCLIDINE SCREEN,URINE NEGATIVE (NEGATIVE)
[2018-09-16 16:25] VITALS: BP 124/72
[2018-09-16] MEDS: MIRTAZAPINE 15 MG TABLET PO SCH (20:34)
[2018-09-16] MEDS: ZOLPIDEM TARTRATE 10 MG TABLET PO PRN (21:25)
[2018-09-17 06:46] VITALS: BP 122/73
[2018-09-17 08:24] VITALS: BP 157/88
[2018-09-17] MEDS: MULTIVITAMINS WITH MINERALS, THERAPEUTIC TABLET PO SCH (09:15)
[2018-09-17] MEDS: METHADONE HCL 10 MG TABLET PO SCH (09:15)
[2018-09-17] MEDS: THIAMINE HCL 100 MG TABLET PO SCH ×2 (09:15→17:05)
[2018-09-17] MEDS: ARIPiprazole 10 MG TABLET PO SCH (09:15)
[2018-09-17] MEDS: FOLIC ACID 1 MG TABLET PO SCH (09:16)
[2018-09-17] MEDS: GABAPENTIN 400 MG CAPSULE PO SCH ×3 (09:16→17:05)
[2018-09-17] MEDS: LORazepam 2 MG TABLET PO PRN ×2 (17:05→21:07)
[2018-09-17] MEDS: OLANZapine 5 MG RAPDIS TABLET PO PRN (17:05)
[2018-09-17 18:26] VITALS: BP 160/92
[2018-09-17] MEDS: PANTOPRAZOLE SODIUM 40 MG DR TABLET PO SCH (18:32)
[2018-09-17] MEDS: MIRTAZAPINE 15 MG TABLET PO SCH (21:07)
[2018-09-17] MEDS: ZOLPIDEM TARTRATE 10 MG TABLET PO PRN (21:07)
[2018-09-18 06:26] VITALS: BP 140/87
[2018-09-18 08:18] VITALS: BP 140/78
[2018-09-18] MEDS: LORazepam 2 MG TABLET PO PRN ×3 (08:30→20:30)
[2018-09-18] MEDS: THIAMINE HCL 100 MG TABLET PO SCH ×2 (08:30→16:38)
[2018-09-18] MEDS: MULTIVITAMINS WITH MINERALS, THERAPEUTIC TABLET PO SCH (08:30)
[2018-09-18] MEDS: ARIPiprazole 10 MG TABLET PO SCH (08:30)
[2018-09-18] MEDS: FOLIC ACID 1 MG TABLET PO SCH (08:30)
[2018-09-18] MEDS: PANTOPRAZOLE SODIUM 40 MG DR TABLET PO SCH (08:30)
[2018-09-18] MEDS: GABAPENTIN 400 MG CAPSULE PO SCH ×3 (08:30→16:38)
[2018-09-18] MEDS: METHADONE HCL 10 MG TABLET PO SCH (08:31)
[2018-09-18] MEDS: OLANZapine 5 MG RAPDIS TABLET PO PRN (15:54)
[2018-09-18 16:00] VITALS: BP 137/86
[2018-09-18] MEDS: ZOLPIDEM TARTRATE 10 MG TABLET PO PRN (20:30)
[2018-09-18] MEDS: MIRTAZAPINE 15 MG TABLET PO SCH (20:30)
[2018-09-19 01:10] VITALS: BP 134/77
[2018-09-19 08:13] VITALS: BP 156/93
[2018-09-19] MEDS: ARIPiprazole 10 MG TABLET PO SCH (08:44)
[2018-09-19] MEDS: PANTOPRAZOLE SODIUM 40 MG DR TABLET PO SCH (08:44)
[2018-09-19] MEDS: GABAPENTIN 400 MG CAPSULE PO SCH ×3 (08:44→16:49)
[2018-09-19] MEDS: FOLIC ACID 1 MG TABLET PO SCH (08:44)
[2018-09-19] MEDS: THIAMINE HCL 100 MG TABLET PO SCH ×2 (08:44→16:49)
[2018-09-19] MEDS: MULTIVITAMINS WITH MINERALS, THERAPEUTIC TABLET PO SCH (08:44)
[2018-09-19] MEDS: METHADONE HCL 10 MG TABLET PO SCH (08:45)
[2018-09-19] MEDS ORDERED: HALOPERIDOL LACTATE 5 MG/ML VIAL ONE (09:06)
[2018-09-19] MEDS ORDERED: LORazepam 2 MG/ML VIAL ONE (09:06)
[2018-09-19] MEDS ORDERED: DiphenhydrAMINE HCL 50 MG/ML VIAL ONE (09:06)
[2018-09-19] MEDS ORDERED: DiphenhydrAMINE HCL 50 MG/ML VIAL IM ONE (09:30)
[2018-09-19] MEDS ORDERED: HALOPERIDOL LACTATE 5 MG/ML VIAL IM ONE (09:30)
[2018-09-19] MEDS ORDERED: LORazepam 2 MG/ML VIAL IM ONE (09:30)
[2018-09-19 16:00] VITALS: BP 120/67
[2018-09-19] MEDS: LORazepam 2 MG TABLET PO PRN (16:49)
[2018-09-19] MEDS: OLANZapine 5 MG RAPDIS TABLET PO PRN (16:50)
[2018-09-19] MEDS: MIRTAZAPINE 15 MG TABLET PO SCH (20:09)
[2018-09-20 01:04] VITALS: BP 155/69
[2018-09-20] MEDS: LORazepam 2 MG TABLET PO PRN ×2 (01:51→16:16)
[2018-09-20] MEDS: ZOLPIDEM TARTRATE 10 MG TABLET PO PRN ×2 (01:51→21:24)
[2018-09-20] MEDS ORDERED: LORazepam 2 MG/ML VIAL ONE (05:31)
[2018-09-20] MEDS ORDERED: DiphenhydrAMINE HCL 50 MG/ML VIAL ONE (05:32)
[2018-09-20] MEDS ORDERED: HALOPERIDOL LACTATE 5 MG/ML VIAL ONE (05:32)
[2018-09-20] MEDS ORDERED: DiphenhydrAMINE HCL 50 MG/ML VIAL IM ONE (06:00)
[2018-09-20] MEDS ORDERED: HALOPERIDOL LACTATE 5 MG/ML VIAL IM ONE (06:00)
[2018-09-20] MEDS ORDERED: LORazepam 2 MG/ML VIAL IM ONE (06:00)
[2018-09-20 08:28] VITALS: BP 141/84
[2018-09-20] MEDS: PANTOPRAZOLE SODIUM 40 MG DR TABLET PO SCH (09:11)
[2018-09-20] MEDS: THIAMINE HCL 100 MG TABLET PO SCH ×2 (09:11→16:16)
[2018-09-20] MEDS: MULTIVITAMINS WITH MINERALS, THERAPEUTIC TABLET PO SCH (09:11)
[2018-09-20] MEDS: ARIPiprazole 10 MG TABLET PO SCH (09:11)
[2018-09-20] MEDS: FOLIC ACID 1 MG TABLET PO SCH (09:11)
[2018-09-20] MEDS: GABAPENTIN 400 MG CAPSULE PO SCH ×3 (09:11→16:16)
[2018-09-20] MEDS: METHADONE HCL 10 MG TABLET PO SCH (09:15)
[2018-09-20 16:11] VITALS: BP 140/95
[2018-09-20] MEDS: OLANZapine 5 MG RAPDIS TABLET PO PRN (16:16)
[2018-09-20] MEDS: MIRTAZAPINE 15 MG TABLET PO SCH (20:41)
[2018-09-21 08:00] VITALS: BP 135/62
[2018-09-21] MEDS: FOLIC ACID 1 MG TABLET PO SCH (08:15)
[2018-09-21] MEDS: METHADONE HCL 10 MG TABLET PO SCH (08:15)
[2018-09-21] MEDS: ARIPiprazole 10 MG TABLET PO SCH (08:15)
[2018-09-21] MEDS: MULTIVITAMINS WITH MINERALS, THERAPEUTIC TABLET PO SCH (08:15)
[2018-09-21] MEDS: PANTOPRAZOLE SODIUM 40 MG DR TABLET PO SCH (08:15)
[2018-09-21] MEDS: GABAPENTIN 400 MG CAPSULE PO SCH ×3 (08:15→16:45)
[2018-09-21] MEDS: LORazepam 2 MG TABLET PO PRN ×2 (08:15→19:53)
[2018-09-21] MEDS: THIAMINE HCL 100 MG TABLET PO SCH ×2 (08:18→16:45)
[2018-09-21 16:23] VITALS: BP 155/77
[2018-09-21] MEDS: OLANZapine 5 MG RAPDIS TABLET PO PRN (19:53)
[2018-09-21] MEDS: MIRTAZAPINE 15 MG TABLET PO SCH (20:39)
[2018-09-21] MEDS: ZOLPIDEM TARTRATE 10 MG TABLET PO PRN (20:39)
[2018-09-22 06:18] VITALS: BP 131/83
[2018-09-22] MEDS: ARIPiprazole 10 MG TABLET PO SCH (08:12)
[2018-09-22] MEDS: PANTOPRAZOLE SODIUM 40 MG DR TABLET PO SCH (08:12)
[2018-09-22] MEDS: GABAPENTIN 400 MG CAPSULE PO SCH ×3 (08:12→16:32)
[2018-09-22] MEDS: MULTIVITAMINS WITH MINERALS, THERAPEUTIC TABLET PO SCH (08:12)
[2018-09-22] MEDS: THIAMINE HCL 100 MG TABLET PO SCH ×2 (08:13→16:31)
[2018-09-22] MEDS: METHADONE HCL 10 MG TABLET PO SCH (08:13)
[2018-09-22] MEDS: FOLIC ACID 1 MG TABLET PO SCH (08:15)
[2018-09-22 09:24] VITALS: BP 121/67
[2018-09-22 16:29] VITALS: BP 156/84
[2018-09-22] MEDS: LORazepam 2 MG TABLET PO PRN (19:16)
[2018-09-22] MEDS: MIRTAZAPINE 15 MG TABLET PO SCH (20:40)
[2018-09-23 08:16] VITALS: BP 149/88
[2018-09-23] MEDS: ARIPiprazole 10 MG TABLET PO SCH (08:20)
[2018-09-23] MEDS: MULTIVITAMINS WITH MINERALS, THERAPEUTIC TABLET PO SCH (08:20)
[2018-09-23] MEDS: PANTOPRAZOLE SODIUM 40 MG DR TABLET PO SCH (08:20)
[2018-09-23] MEDS: GABAPENTIN 400 MG CAPSULE PO SCH ×3 (08:21→16:50)
[2018-09-23] MEDS: THIAMINE HCL 100 MG TABLET PO SCH ×2 (08:21→16:50)
[2018-09-23] MEDS: FOLIC ACID 1 MG TABLET PO SCH (08:21)
[2018-09-23] MEDS: METHADONE HCL 10 MG TABLET PO SCH (08:22)
[2018-09-23 15:09] VITALS: BP 143/83
[2018-09-23 17:23] VITALS: BP 144/85
[2018-09-23] MEDS: MIRTAZAPINE 15 MG TABLET PO SCH (20:39)
[2018-09-23] MEDS: ZOLPIDEM TARTRATE 10 MG TABLET PO PRN (20:39)
[2018-09-23] MEDS: LORazepam 2 MG TABLET PO PRN (21:11)
[2018-09-24 01:21] VITALS: BP 159/79
[2018-09-24 01:23] VITALS: BP 155/79
[2018-09-24] MEDS: MULTIVITAMINS WITH MINERALS, THERAPEUTIC TABLET PO SCH (08:18)
[2018-09-24] MEDS: ARIPiprazole 10 MG TABLET PO SCH (08:18)
[2018-09-24] MEDS: GABAPENTIN 400 MG CAPSULE PO SCH ×3 (08:18→16:05)
[2018-09-24] MEDS: PANTOPRAZOLE SODIUM 40 MG DR TABLET PO SCH (08:18)
[2018-09-24] MEDS: METHADONE HCL 10 MG TABLET PO SCH (08:19)
[2018-09-24 08:43] VITALS: BP 170/105
[2018-09-24] MEDS: LORazepam 2 MG TABLET PO PRN ×2 (11:14→16:05)
[2018-09-24 16:00] VITALS: BP 141/79
[2018-09-24] MEDS: OLANZapine 5 MG RAPDIS TABLET PO PRN (16:05)
[2018-09-24] MEDS: ACAMPROSATE CALCIUM 333 MG DR TABLET PO SCH (16:05)
[2018-09-24] MEDS ORDERED: ARIP400S3 IM (16:43)
[2018-09-24] MEDS ORDERED: GABA-533 PO (16:43)
[2018-09-24] MEDS ORDERED: MIRT15 PO (16:43)
[2018-09-24] MEDS ORDERED: ACAM333T7 PO (16:43)
[2018-09-24] MEDS: ZOLPIDEM TARTRATE 10 MG TABLET PO PRN (20:19)
[2018-09-24] MEDS: MIRTAZAPINE 15 MG TABLET PO SCH (20:19)
[2018-09-25 05:36] VITALS: BP 148/82
[2018-09-25] MEDS: ARIPiprazole 10 MG TABLET PO SCH (08:02)
[2018-09-25] MEDS: METHADONE HCL 10 MG TABLET PO SCH (08:02)
[2018-09-25] MEDS: PANTOPRAZOLE SODIUM 40 MG DR TABLET PO SCH (08:02)
[2018-09-25] MEDS: ACAMPROSATE CALCIUM 333 MG DR TABLET PO SCH (08:02)
[2018-09-25] MEDS: MULTIVITAMINS WITH MINERALS, THERAPEUTIC TABLET PO SCH (08:03)
[2018-09-25] MEDS: GABAPENTIN 400 MG CAPSULE PO SCH (08:03)
[2018-09-25] MEDS ORDERED: GABA-533 PO (08:10)
[2018-09-25] MEDS ORDERED: ACAM333T7 PO (08:12)
[2018-09-25 08:20] VITALS: BP 144/85
[2018-09-25] MEDS ORDERED: PANT40TA25 PO (11:28)
== END 2018-09-25 12:40 | disposition home or self-care (01) | DRG 750 ==
LOC: B3A 22:52
PROVIDERS: ADMIT Psychiatry & Neurology Psychiatry; ATTEND Psychiatry & Neurology Psychiatry
DX: F25.0 Schizoaffective disorder, bipolar type (principal); E46 Unspecified protein-calorie malnutrition; F39 Unspecified mood [affective] disorder; Z59.0 Homelessness; D64.9 Anemia, unspecified; Z68.30 Body mass index [BMI] 30.0-30.9, adult; Z79.899 Other long term (current) drug therapy; Z88.0 Allergy status to penicillin; Z91.19 Patient's noncompliance with other medical treatment and regimen
CPT/HCPCS: 80307; 83036; 84439; 84443; 87081; 90686; J0401; J1200; J1630; J2060

== ENCOUNTER 2018-10-02 11:46 | Inpatient (IN) | payer MEDICAID ==
[~2018-10-02] VITALS: Ht 182.9 cm; Wt 88.6 kg
[~2018-10-02 11:46] MED LIST changes: +ACAM333T7 PO; -ALBU8HFA IH; -AMLO-511 PO; +ARIP400S3 IM; -DOXY100C PO; -DULO30CA2 PO; -GABA-529 PO; -GABA-531 PO; +GABA-533 PO; -LEVE500T53 PO; -LISI-662 PO; +PANT40TA25 PO
[2018-10-02] MEDS ORDERED: MAG HYDROX/AL HYDROX/SIMETH ES 30 ML SUSPENSION UDCUP PO PRN (13:15)
[2018-10-02] MEDS ORDERED: HydrOXYzine PAMOATE 50 MG CAPSULE PO PRN (13:15)
[2018-10-02] MEDS ORDERED: LOPERAMIDE HCL 2 MG CAPSULE PO PRN (13:15)
[2018-10-02] MEDS ORDERED: GuaiFENesin/D-METHORPHAN [SUGAR-FREE] 200-20MG/10 ML SYRUP UDCUP PO PRN (13:15)
[2018-10-02] MEDS ORDERED: MAGNESIUM HYDROXIDE SUSPENSION 30 ML UDCUP PO PRN (13:15)
[2018-10-02] MEDS ORDERED: PROMETHAZINE HCL 25 MG TABLET PO PRN (13:15)
[2018-10-02] MEDS ORDERED: ACETAMINOPHEN 325 MG TABLET PO PRN (13:15)
[2018-10-02] MEDS ORDERED: QUEtiapine FUMARATE 100 MG TABLET PO PRN (13:15)
[2018-10-02] MEDS ORDERED: LORazepam 2 MG TABLET PO PRN (13:15)
[2018-10-02] MEDS ORDERED: MIRT15 PO (13:23)
[2018-10-02] MEDS ORDERED: ARIP10TA8 PO (13:23)
[2018-10-02] MEDS ORDERED: ARIP400S3 IM (13:23)
[2018-10-02 13:29] VITALS: BP 161/98
[2018-10-02 14:54] VITALS: BP 125/66
[2018-10-02] MEDS ORDERED: PNEUMOCOCCAL VACCINE POLYVALENT 0.5 ML VIAL [PPSV23] IM ONE (15:00)
[2018-10-02 16:05] VITALS: BP 122/68
[2018-10-02 16:19] VITALS: BP 122/68
[2018-10-02] MEDS: THIAMINE HCL 100 MG TABLET PO SCH (16:32)
[2018-10-02] MEDS: ACAMPROSATE CALCIUM 333 MG DR TABLET PO SCH (16:32)
[2018-10-02] MEDS: GABAPENTIN 400 MG CAPSULE PO SCH ×2 (16:32→20:30)
[2018-10-02] MEDS: CloNIDine HCL 0.1 MG TABLET PO SCH (16:33)
[2018-10-02] MEDS ORDERED: GABAPENTIN 300 MG CAPSULE PO SCH (17:00)
[2018-10-02] MEDS ORDERED: MIRTAZAPINE 15 MG TABLET PO SCH (21:00)
[2018-10-03 00:58] VITALS: BP 120/81
[2018-10-03 08:02] LABS: ALANINE AMINOTRANSFERASE 55 U/L (12-78); ALBUMIN 3.6 g/dL (3.4-5.0); ALKALINE PHOSPHATASE 113 U/L (46-116); ANION GAP 7 mmol/L (8-16); ASPARTATE AMINOTRANSFERASE 59 U/L (15-37); BILIRUBIN,TOTAL 0.5 mg/dL (0.1-1.0); CALCIUM, TOTAL 8.9 mg/dL (8.8-10.5); CARBON DIOXIDE 30 mmol/L (22-29); CHLORIDE 105 mmol/L (98-107); CREATININE 0.87 mg/dL (0.60-1.30); GLOMERULAR FILTR. RATE CALC > 60 mL/min (>60); GLUCOSE,RANDOM 87 mg/dL (70-110); SODIUM SERUM 142 mmol/L (136-145); TOTAL PROTEIN, SERUM 6.9 g/dL (6.4-8.2); UREA NITROGEN, BLOOD 16 mg/dL (7-18)
[2018-10-03 08:06] LABS: AMPHET/METH SCREEN,URINE POSITIVE (NEGATIVE); BARBITURATE SCREEN, URINE NEGATIVE (NEGATIVE); BENZODIAZEPINES SCREEN,URINE NEGATIVE (NEGATIVE); CANNABINOID SCREEN,URINE POSITIVE (NEGATIVE); COCAINE SCREEN,URINE NEGATIVE (NEGATIVE); METHADONE SCREEN, URINE POSITIVE (NEGATIVE); OPIATE SCREEN,URINE POSITIVE (NEGATIVE)
[2018-10-03 08:09] LABS: PHENCYCLIDINE SCREEN,URINE NEGATIVE (NEGATIVE)
[2018-10-03] MEDS: THIAMINE HCL 100 MG TABLET PO SCH ×2 (08:27→16:33)
[2018-10-03] MEDS: ACAMPROSATE CALCIUM 333 MG DR TABLET PO SCH ×3 (08:27→16:34)
[2018-10-03] MEDS: MULTIVITAMINS WITH MINERALS, THERAPEUTIC TABLET PO SCH (08:27)
[2018-10-03] MEDS: GABAPENTIN 400 MG CAPSULE PO SCH ×4 (08:27→22:43)
[2018-10-03] MEDS: CloNIDine HCL 0.1 MG TABLET PO SCH ×2 (08:27→16:33)
[2018-10-03] MEDS: FOLIC ACID 1 MG TABLET PO SCH (08:27)
[2018-10-03] MEDS: ARIPiprazole 15 MG TABLET PO SCH (08:27)
[2018-10-03] MEDS: METHADONE HCL 10 MG TABLET PO SCH (08:27)
[2018-10-03 16:02] VITALS: BP 115/81
[2018-10-03] MEDS: MIRTAZAPINE 30 MG TABLET PO SCH (20:20)
[2018-10-04 00:53] VITALS: BP 137/87
[2018-10-04 08:15] VITALS: BP 128/77
[2018-10-04] MEDS: THIAMINE HCL 100 MG TABLET PO SCH ×2 (08:58→16:23)
[2018-10-04] MEDS: CloNIDine HCL 0.1 MG TABLET PO SCH ×2 (08:58→16:23)
[2018-10-04] MEDS: ARIPiprazole 15 MG TABLET PO SCH (08:58)
[2018-10-04] MEDS: MULTIVITAMINS WITH MINERALS, THERAPEUTIC TABLET PO SCH (08:58)
[2018-10-04] MEDS: FOLIC ACID 1 MG TABLET PO SCH (08:58)
[2018-10-04] MEDS: ACAMPROSATE CALCIUM 333 MG DR TABLET PO SCH ×3 (08:58→16:44)
[2018-10-04] MEDS: METHADONE HCL 10 MG TABLET PO SCH (08:58)
[2018-10-04] MEDS: GABAPENTIN 400 MG CAPSULE PO SCH ×2 (08:58→12:51)
[2018-10-04 16:10] VITALS: BP 125/75
[2018-10-04] MEDS: GABAPENTIN 300 MG CAPSULE PO SCH (16:43)
[2018-10-04] MEDS: MIRTAZAPINE 30 MG TABLET PO SCH (20:53)
[2018-10-05 00:52] VITALS: BP 120/81
[2018-10-05] MEDS: LORazepam 0.5 MG TABLET PO PRN ×4 (05:32→20:22)
[2018-10-05 08:27] VITALS: BP 141/66
[2018-10-05] MEDS: ARIPiprazole 15 MG TABLET PO SCH (08:59)
[2018-10-05] MEDS: FOLIC ACID 1 MG TABLET PO SCH (09:00)
[2018-10-05] MEDS: CloNIDine HCL 0.1 MG TABLET PO SCH ×2 (09:00→16:27)
[2018-10-05] MEDS: METHADONE HCL 10 MG TABLET PO SCH (09:00)
[2018-10-05] MEDS: THIAMINE HCL 100 MG TABLET PO SCH ×2 (09:00→16:27)
[2018-10-05] MEDS: ACAMPROSATE CALCIUM 333 MG DR TABLET PO SCH ×3 (09:00→16:27)
[2018-10-05] MEDS: MULTIVITAMINS WITH MINERALS, THERAPEUTIC TABLET PO SCH (09:00)
[2018-10-05] MEDS: GABAPENTIN 300 MG CAPSULE PO SCH ×3 (09:00→16:27)
[2018-10-05 16:44] VITALS: BP 124/67
[2018-10-05] MEDS: MIRTAZAPINE 15 MG TABLET PO SCH (20:21)
[2018-10-05] MEDS: ZOLPIDEM TARTRATE 10 MG TABLET PO PRN (20:23)
[2018-10-06 06:05] VITALS: BP 152/91
[2018-10-06] MEDS: CloNIDine HCL 0.1 MG TABLET PO SCH ×2 (08:30→15:59)
[2018-10-06] MEDS: GABAPENTIN 300 MG CAPSULE PO SCH ×3 (08:30→15:59)
[2018-10-06] MEDS: FOLIC ACID 1 MG TABLET PO SCH (08:31)
[2018-10-06] MEDS: METHADONE HCL 10 MG TABLET PO SCH (08:31)
[2018-10-06] MEDS: ARIPiprazole 15 MG TABLET PO SCH (08:31)
[2018-10-06] MEDS: ACAMPROSATE CALCIUM 333 MG DR TABLET PO SCH ×3 (08:31→15:59)
[2018-10-06] MEDS: MULTIVITAMINS WITH MINERALS, THERAPEUTIC TABLET PO SCH (08:31)
[2018-10-06] MEDS: THIAMINE HCL 100 MG TABLET PO SCH ×2 (08:31→15:59)
[2018-10-06 09:00] VITALS: BP 166/86
[2018-10-06] MEDS: LORazepam 0.5 MG TABLET PO PRN ×2 (09:11→15:57)
[2018-10-06 16:39] VITALS: BP 128/77
[2018-10-06] MEDS: MIRTAZAPINE 15 MG TABLET PO SCH (20:41)
[2018-10-06] MEDS: ZOLPIDEM TARTRATE 10 MG TABLET PO PRN (20:59)
[2018-10-07 08:10] VITALS: BP 158/89
[2018-10-07] MEDS: GABAPENTIN 300 MG CAPSULE PO SCH ×3 (08:12→16:24)
[2018-10-07] MEDS: CloNIDine HCL 0.1 MG TABLET PO SCH ×2 (08:12→16:24)
[2018-10-07] MEDS: ARIPiprazole 15 MG TABLET PO SCH (08:12)
[2018-10-07] MEDS: ACAMPROSATE CALCIUM 333 MG DR TABLET PO SCH ×3 (08:12→16:24)
[2018-10-07] MEDS: MULTIVITAMINS WITH MINERALS, THERAPEUTIC TABLET PO SCH (08:12)
[2018-10-07] MEDS: LORazepam 0.5 MG TABLET PO PRN ×4 (08:12→21:55)
[2018-10-07] MEDS: METHADONE HCL 10 MG TABLET PO SCH (08:13)
[2018-10-07] MEDS: THIAMINE HCL 100 MG TABLET PO SCH ×2 (08:13→16:24)
[2018-10-07] MEDS: FOLIC ACID 1 MG TABLET PO SCH (08:13)
[2018-10-07 13:07] VITALS: BP 145/93
[2018-10-07 16:04] VITALS: BP 123/69
[2018-10-07] MEDS: ZOLPIDEM TARTRATE 10 MG TABLET PO PRN (20:13)
[2018-10-07] MEDS: MIRTAZAPINE 15 MG TABLET PO SCH (20:13)
[2018-10-08 08:29] VITALS: BP 163/96
[2018-10-08] MEDS: ARIPiprazole 15 MG TABLET PO SCH (08:29)
[2018-10-08] MEDS: GABAPENTIN 300 MG CAPSULE PO SCH ×2 (08:30→12:32)
[2018-10-08] MEDS: MULTIVITAMINS WITH MINERALS, THERAPEUTIC TABLET PO SCH (08:30)
[2018-10-08] MEDS: FOLIC ACID 1 MG TABLET PO SCH (08:30)
[2018-10-08] MEDS: METHADONE HCL 10 MG TABLET PO SCH (08:30)
[2018-10-08] MEDS: ACAMPROSATE CALCIUM 333 MG DR TABLET PO SCH ×3 (08:30→16:41)
[2018-10-08] MEDS: CloNIDine HCL 0.1 MG TABLET PO SCH ×2 (08:30→16:41)
[2018-10-08] MEDS: THIAMINE HCL 100 MG TABLET PO SCH ×2 (08:31→16:42)
[2018-10-08] MEDS: LORazepam 0.5 MG TABLET PO PRN ×2 (09:43→14:36)
[2018-10-08] MEDS ORDERED: MIRT15 PO (15:02)
[2018-10-08] MEDS ORDERED: ACAM333T7 PO (15:02)
[2018-10-08] MEDS ORDERED: ARIP15TA2 PO (15:02)
[2018-10-08] MEDS ORDERED: GABA-531 PO (15:02)
[2018-10-08 16:12] VITALS: BP 139/77
[2018-10-08] MEDS ORDERED: CLON-570 PO (16:49)
[2018-10-08] MEDS ORDERED: GABAPENTIN 400 MG CAPSULE PO SCH (17:00)
== END 2018-10-08 18:00 | disposition home or self-care (01) | DRG 750 ==
LOC: B2S 13:38 → 3EI 10-05 18:20
PROVIDERS: ADMIT Psychiatry & Neurology Psychiatry; ATTEND Psychiatry & Neurology Psychiatry
DX: F25.9 Schizoaffective disorder, unspecified (principal); Z59.0 Homelessness; F17.200 Nicotine dependence, unspecified, uncomplicated; G89.4 Chronic pain syndrome; I10 Essential (primary) hypertension; Z79.899 Other long term (current) drug therapy; Z82.0 Family history of epilepsy and other diseases of the nervous system; Z91.19 Patient's noncompliance with other medical treatment and regimen; Z82.49 Family history of ischemic heart disease and other diseases of the circulatory system; Z88.0 Allergy status to penicillin
CPT/HCPCS: 86592; 87081

== ENCOUNTER 2018-10-30 21:48 | Inpatient (IN) | payer MEDICAID ==
[~2018-10-30] VITALS: Ht 182.9 cm; Wt 91.6 kg
[~2018-10-30 21:48] MED LIST changes: -ARIP400S3 IM; +CLON-570 PO; +GABA-531 PO; -PANT40TA25 PO
[2018-10-30] MEDS ORDERED: MAG HYDROX/AL HYDROX/SIMETH ES 30 ML SUSPENSION UDCUP PO PRN (22:00)
[2018-10-30] MEDS ORDERED: CloNIDine HCL 0.1 MG TABLET PO PRN (22:00)
[2018-10-30] MEDS ORDERED: LORazepam 2 MG TABLET PO PRN (22:00)
[2018-10-30] MEDS ORDERED: OLANZapine 5 MG RAPDIS TABLET PO PRN (22:00)
[2018-10-30] MEDS ORDERED: -PHARMACY VACCINE NOTE- MISC ONE (22:45)
[2018-10-30] MEDS ORDERED: GuaiFENesin/D-METHORPHAN [SUGAR-FREE] 200-20MG/10 ML SYRUP UDCUP PO PRN (22:45)
[2018-10-30] MEDS ORDERED: CYANOCOBALAMIN 1,000 MCG/ML VIAL IM ONE (22:45)
[2018-10-30] MEDS ORDERED: LOPERAMIDE HCL 2 MG CAPSULE PO PRN (22:45)
[2018-10-30] MEDS ORDERED: HydrOXYzine PAMOATE 50 MG CAPSULE PO PRN (22:45)
[2018-10-30 22:48] VITALS: BP 177/100
[2018-10-30 23:59] VITALS: BP 188/108
[2018-10-31] VITALS (9 sets, daily range): BP systolic 131–188; BP diastolic 60–108
[2018-10-31] MEDS: CloNIDine HCL 0.1 MG TABLET PO SCH ×3 (00:33→12:13)
[2018-10-31] MEDS: IBUPROFEN 600 MG TABLET PO PRN (00:39)
[2018-10-31] MEDS: ZOLPIDEM TARTRATE 10 MG TABLET PO PRN (00:40)
[2018-10-31 07:41] LABS: BASOPHILS % (AUTO) 0.2 % (0.0-2.0); EOSINOPHILS % (AUTO) 0.8 % (1.0-6.0); HEMATOCRIT 34.5 % (41-53); HEMOGLOBIN 11.3 g/dL (13.5-17.5); LYMPHOCYTES # (AUTO) 1.5 K/uL (1.0-4.8); LYMPHOCYTES % (AUTO) 8.6 % (22.0-44.0); MEAN CORPUSCULAR HGB CONC 32.7 G/dL (31.0-37.0); MEAN CORPUSCULAR VOLUME 86 fL (80-100); MONOCYTES # (AUTO) 0.7 K/uL (0.1-1.0); MONOCYTES % (AUTO) 4.2 % (2.0-9.0); NEUTROPHILS # (AUTO) 15.2 K/uL (1.8-7.7); PLATELET COUNT (AUTO) 350 K/uL (150-450); RED BLOOD CELL COUNT(AUTO) 4.02 MIL/uL (4.50-5.90); RED CELL DISTRIBUTION WIDTH 15.5 % (11.5-14.5)
[2018-10-31 07:43] LABS: NEUTROPHILS % (AUTO) 86.2 % (40.0-70.0)
[2018-10-31 08:07] LABS: ALANINE AMINOTRANSFERASE 32 U/L (12-78); ALBUMIN 2.5 g/dL (3.4-5.0); ALKALINE PHOSPHATASE 83 U/L (46-116); ANION GAP 8 mmol/L (8-16); ASPARTATE AMINOTRANSFERASE 24 U/L (15-37); BILIRUBIN,TOTAL 0.7 mg/dL (0.1-1.0); CARBON DIOXIDE 27 mmol/L (22-29); CHLORIDE 104 mmol/L (98-107); CHOL/HDL RATIO 3.1 (4.2-7.3); CHOLESTEROL 114 mg/dL (131-200); CREATININE 0.82 mg/dL (0.60-1.30); FREE T4 (FREE THYROXINE) 1.16 ng/dL (0.76-1.46); GLOMERULAR FILTR. RATE CALC > 60 mL/min (>60); GLUCOSE,RANDOM 78 mg/dL (70-110); HDL CHOLESTEROL 37 mg/dL (40-60); LDL CHOL (CALC.) 66 mg/dL (0-130); POTASSIUM 3.7 mmol/L (3.5-5.1); SODIUM SERUM 139 mmol/L (136-145); THYROID STIMULATING HORMONE 1.32 uIU/mL (0.36-3.74); TOTAL PROTEIN, SERUM 6.2 g/dL (6.4-8.2); TRIGLYCERIDES 55 mg/dL (15-150); UREA NITROGEN, BLOOD 20 mg/dL (7-18)
[2018-10-31] MEDS: THIAMINE HCL 100 MG TABLET PO SCH ×2 (08:24→17:11)
[2018-10-31] MEDS: MULTIVITAMINS WITH MINERALS, THERAPEUTIC TABLET PO SCH (08:24)
[2018-10-31] MEDS: FOLIC ACID 1 MG TABLET PO SCH (08:24)
[2018-10-31] MEDS: GABAPENTIN 400 MG CAPSULE PO SCH ×3 (08:24→17:11)
[2018-10-31] MEDS: ACAMPROSATE CALCIUM 333 MG DR TABLET PO SCH ×3 (08:24→17:11)
[2018-10-31] MEDS ORDERED: ARIPiprazole 10 MG TABLET PO SCH (09:00)
[2018-10-31] MEDS: METHADONE HCL 10 MG TABLET PO SCH (09:44)
[2018-10-31] MEDS ORDERED: PALIPERIDONE PALMITATE 234 MG/1.5 ML SYRINGE IM ONE (15:00)
[2018-10-31] MEDS ORDERED: PALIPERIDONE 3 MG ER TABLET PO SCH (21:00)
[2018-10-31] MEDS ORDERED: MIRTAZAPINE 15 MG TABLET PO SCH ×2 (21:00)
[2018-11-01 06:06] VITALS: BP 153/93
[2018-11-01 08:18] VITALS: BP 145/91
[2018-11-01] MEDS: ACAMPROSATE CALCIUM 333 MG DR TABLET PO SCH ×3 (08:26→16:41)
[2018-11-01] MEDS: FOLIC ACID 1 MG TABLET PO SCH (08:27)
[2018-11-01] MEDS: MULTIVITAMINS WITH MINERALS, THERAPEUTIC TABLET PO SCH (08:27)
[2018-11-01] MEDS: THIAMINE HCL 100 MG TABLET PO SCH ×2 (08:27→16:41)
[2018-11-01] MEDS: GABAPENTIN 400 MG CAPSULE PO SCH ×3 (08:27→16:42)
[2018-11-01] MEDS: METHADONE HCL 10 MG TABLET PO SCH (08:27)
[2018-11-01 16:10] VITALS: BP 137/77
[2018-11-01] MEDS ORDERED: MIRTAZAPINE 15 MG TABLET PO SCH (21:00)
[2018-11-02] MEDS: ZOLPIDEM TARTRATE 10 MG TABLET PO PRN ×2 (00:09→20:34)
[2018-11-02 00:21] VITALS: BP 151/100
[2018-11-02 08:01] VITALS: BP 138/77
[2018-11-02] MEDS: MULTIVITAMINS WITH MINERALS, THERAPEUTIC TABLET PO SCH (08:58)
[2018-11-02] MEDS: GABAPENTIN 400 MG CAPSULE PO SCH ×3 (08:58→16:37)
[2018-11-02] MEDS: FOLIC ACID 1 MG TABLET PO SCH (08:58)
[2018-11-02] MEDS: METHADONE HCL 10 MG TABLET PO SCH (08:58)
[2018-11-02] MEDS: ACAMPROSATE CALCIUM 333 MG DR TABLET PO SCH ×3 (08:58→16:37)
[2018-11-02] MEDS: THIAMINE HCL 100 MG TABLET PO SCH ×2 (08:58→16:37)
[2018-11-02] MEDS: LORazepam 0.5 MG TABLET PO PRN ×2 (10:41→16:37)
[2018-11-02 16:04] VITALS: BP 138/81
[2018-11-02] MEDS: PALIPERIDONE 1.5 MG ER TABLET PO PRN (16:37)
[2018-11-02] MEDS: MIRTAZAPINE 15 MG TABLET PO SCH (20:34)
[2018-11-03 06:38] VITALS: BP 146/87
[2018-11-03 08:06] VITALS: BP 135/68
[2018-11-03] MEDS: GABAPENTIN 400 MG CAPSULE PO SCH ×3 (08:26→16:31)
[2018-11-03] MEDS: ACAMPROSATE CALCIUM 333 MG DR TABLET PO SCH ×3 (08:26→16:31)
[2018-11-03] MEDS: THIAMINE HCL 100 MG TABLET PO SCH ×2 (08:26→16:31)
[2018-11-03] MEDS: FOLIC ACID 1 MG TABLET PO SCH (08:26)
[2018-11-03] MEDS: METHADONE HCL 10 MG TABLET PO SCH (08:26)
[2018-11-03] MEDS: MULTIVITAMINS WITH MINERALS, THERAPEUTIC TABLET PO SCH (08:26)
[2018-11-03] MEDS: LORazepam 0.5 MG TABLET PO PRN (10:11)
[2018-11-03 16:11] VITALS: BP 122/75
[2018-11-03] MEDS: MIRTAZAPINE 15 MG TABLET PO SCH (20:20)
[2018-11-04 05:58] VITALS: BP 133/75
[2018-11-04 07:07] LABS: BASOPHILS % (AUTO) 0.4 % (0.0-2.0); EOSINOPHILS % (AUTO) 1.8 % (1.0-6.0); HEMATOCRIT 36.9 % (41-53); HEMOGLOBIN 12.1 g/dL (13.5-17.5); LYMPHOCYTES # (AUTO) 1.6 K/uL (1.0-4.8); LYMPHOCYTES % (AUTO) 21.5 % (22.0-44.0); MEAN CORPUSCULAR HEMOGLOBIN 28.1 pg (26.0-34.0); MEAN CORPUSCULAR HGB CONC 32.7 G/dL (31.0-37.0); MEAN CORPUSCULAR VOLUME 86 fL (80-100); MONOCYTES # (AUTO) 0.8 K/uL (0.1-1.0); MONOCYTES % (AUTO) 10.3 % (2.0-9.0); PLATELET COUNT (AUTO) 358 K/uL (150-450); RED CELL DISTRIBUTION WIDTH 15.5 % (11.5-14.5)
[2018-11-04 08:00] VITALS: BP 123/65
[2018-11-04] MEDS: ACAMPROSATE CALCIUM 333 MG DR TABLET PO SCH ×3 (08:08→16:50)
[2018-11-04] MEDS: MULTIVITAMINS WITH MINERALS, THERAPEUTIC TABLET PO SCH (08:08)
[2018-11-04] MEDS: THIAMINE HCL 100 MG TABLET PO SCH ×2 (08:08→16:50)
[2018-11-04] MEDS: GABAPENTIN 400 MG CAPSULE PO SCH ×3 (08:08→16:50)
[2018-11-04] MEDS: METHADONE HCL 10 MG TABLET PO SCH (08:09)
[2018-11-04] MEDS: FOLIC ACID 1 MG TABLET PO SCH (08:09)
[2018-11-04] MEDS ORDERED: PALIPERIDONE PALMITATE 156 MG/ML SYRINGE IM ONE (09:00)
[2018-11-04 17:26] VITALS: BP 107/68
[2018-11-04] MEDS: MIRTAZAPINE 15 MG TABLET PO SCH (20:43)
[2018-11-05 06:11] VITALS: BP 110/62
[2018-11-05] MEDS: ACAMPROSATE CALCIUM 333 MG DR TABLET PO SCH ×3 (08:20→16:45)
[2018-11-05] MEDS: GABAPENTIN 400 MG CAPSULE PO SCH ×3 (08:20→16:45)
[2018-11-05] MEDS: MULTIVITAMINS WITH MINERALS, THERAPEUTIC TABLET PO SCH (08:20)
[2018-11-05] MEDS: FOLIC ACID 1 MG TABLET PO SCH (08:20)
[2018-11-05] MEDS: METHADONE HCL 10 MG TABLET PO SCH (08:20)
[2018-11-05] MEDS: THIAMINE HCL 100 MG TABLET PO SCH ×2 (08:20→16:46)
[2018-11-05 08:27] VITALS: BP 127/67
[2018-11-05 16:04] VITALS: BP 132/84
[2018-11-05] MEDS: PALIPERIDONE 1.5 MG ER TABLET PO PRN (16:46)
[2018-11-05] MEDS: LORazepam 0.5 MG TABLET PO PRN (16:46)
[2018-11-05] MEDS: MIRTAZAPINE 15 MG TABLET PO SCH (20:09)
[2018-11-05] MEDS: ZOLPIDEM TARTRATE 10 MG TABLET PO PRN (20:10)
[2018-11-06 02:33] VITALS: BP 132/72
[2018-11-06 08:10] VITALS: BP 140/66
[2018-11-06] MEDS: ACAMPROSATE CALCIUM 333 MG DR TABLET PO SCH ×3 (08:13→16:35)
[2018-11-06] MEDS: METHADONE HCL 10 MG TABLET PO SCH (08:13)
[2018-11-06] MEDS: THIAMINE HCL 100 MG TABLET PO SCH ×2 (08:13→16:35)
[2018-11-06] MEDS: GABAPENTIN 400 MG CAPSULE PO SCH ×3 (08:13→16:35)
[2018-11-06] MEDS: MULTIVITAMINS WITH MINERALS, THERAPEUTIC TABLET PO SCH (08:14)
[2018-11-06] MEDS: FOLIC ACID 1 MG TABLET PO SCH (08:14)
[2018-11-06 16:04] VITALS: BP 114/60
[2018-11-06] MEDS: LORazepam 0.5 MG TABLET PO PRN (16:36)
[2018-11-06] MEDS: PALIPERIDONE 1.5 MG ER TABLET PO PRN (16:36)
[2018-11-06] MEDS: ZOLPIDEM TARTRATE 10 MG TABLET PO PRN (20:21)
[2018-11-06] MEDS: MIRTAZAPINE 15 MG TABLET PO SCH (20:21)
[2018-11-07 06:22] VITALS: BP 136/78
[2018-11-07] MEDS: ACAMPROSATE CALCIUM 333 MG DR TABLET PO SCH ×3 (08:09→16:36)
[2018-11-07] MEDS: MULTIVITAMINS WITH MINERALS, THERAPEUTIC TABLET PO SCH (08:09)
[2018-11-07] MEDS: GABAPENTIN 400 MG CAPSULE PO SCH ×3 (08:09→16:36)
[2018-11-07] MEDS: THIAMINE HCL 100 MG TABLET PO SCH ×2 (08:09→16:36)
[2018-11-07] MEDS: METHADONE HCL 10 MG TABLET PO SCH (08:09)
[2018-11-07] MEDS: FOLIC ACID 1 MG TABLET PO SCH (08:09)
[2018-11-07 08:44] VITALS: BP 110/65
[2018-11-07] MEDS: LORazepam 0.5 MG TABLET PO PRN ×2 (10:24→16:36)
[2018-11-07 16:10] VITALS: BP 128/66
[2018-11-07] MEDS: MIRTAZAPINE 15 MG TABLET PO SCH (20:33)
[2018-11-07] MEDS: ZOLPIDEM TARTRATE 10 MG TABLET PO PRN (20:33)
[2018-11-08 00:14] VITALS: BP 139/65
[2018-11-08] MEDS: LORazepam 0.5 MG TABLET PO PRN ×2 (05:39→16:09)
[2018-11-08] MEDS: GABAPENTIN 400 MG CAPSULE PO SCH ×3 (08:00→16:09)
[2018-11-08] MEDS: FOLIC ACID 1 MG TABLET PO SCH (08:00)
[2018-11-08] MEDS: ACAMPROSATE CALCIUM 333 MG DR TABLET PO SCH ×3 (08:00→16:09)
[2018-11-08] MEDS: METHADONE HCL 10 MG TABLET PO SCH (08:00)
[2018-11-08] MEDS: THIAMINE HCL 100 MG TABLET PO SCH ×2 (08:01→16:09)
[2018-11-08] MEDS: MULTIVITAMINS WITH MINERALS, THERAPEUTIC TABLET PO SCH (08:01)
[2018-11-08 08:18] VITALS: BP 134/70
[2018-11-08 16:04] VITALS: BP 142/78
[2018-11-08] MEDS: ZOLPIDEM TARTRATE 10 MG TABLET PO PRN (20:37)
[2018-11-08] MEDS: MIRTAZAPINE 15 MG TABLET PO SCH (20:37)
[2018-11-09 01:24] VITALS: BP 166/90
[2018-11-09] MEDS: LORazepam 0.5 MG TABLET PO PRN ×4 (01:52→16:04)
[2018-11-09 03:17] VITALS: BP 137/68
[2018-11-09 08:13] VITALS: BP 105/72
[2018-11-09] MEDS: ACAMPROSATE CALCIUM 333 MG DR TABLET PO SCH ×3 (08:20→16:03)
[2018-11-09] MEDS: FOLIC ACID 1 MG TABLET PO SCH (08:20)
[2018-11-09] MEDS: GABAPENTIN 400 MG CAPSULE PO SCH ×3 (08:20→16:03)
[2018-11-09] MEDS: THIAMINE HCL 100 MG TABLET PO SCH ×2 (08:20→16:03)
[2018-11-09] MEDS: MULTIVITAMINS WITH MINERALS, THERAPEUTIC TABLET PO SCH (08:20)
[2018-11-09] MEDS: METHADONE HCL 10 MG TABLET PO SCH (08:21)
[2018-11-09 16:03] VITALS: BP 122/78
[2018-11-09] MEDS: ZOLPIDEM TARTRATE 10 MG TABLET PO PRN (20:28)
[2018-11-09] MEDS: MIRTAZAPINE 15 MG TABLET PO SCH (20:28)
[2018-11-10 06:00] VITALS: BP 128/78
[2018-11-10 08:14] VITALS: BP 109/80
[2018-11-10] MEDS: GABAPENTIN 400 MG CAPSULE PO SCH ×3 (08:25→16:20)
[2018-11-10] MEDS: MULTIVITAMINS WITH MINERALS, THERAPEUTIC TABLET PO SCH (08:25)
[2018-11-10] MEDS: METHADONE HCL 10 MG TABLET PO SCH (08:25)
[2018-11-10] MEDS: ACAMPROSATE CALCIUM 333 MG DR TABLET PO SCH ×3 (08:27→16:20)
[2018-11-10] MEDS: LORazepam 0.5 MG TABLET PO PRN ×2 (12:34→17:37)
[2018-11-10 16:12] VITALS: BP 123/68
[2018-11-10] MEDS: MIRTAZAPINE 15 MG TABLET PO SCH (20:20)
[2018-11-10] MEDS: ZOLPIDEM TARTRATE 10 MG TABLET PO PRN (21:17)
[2018-11-11 06:19] VITALS: BP 137/91
[2018-11-11 08:11] VITALS: BP 131/65
[2018-11-11] MEDS: GABAPENTIN 400 MG CAPSULE PO SCH ×3 (08:40→16:12)
[2018-11-11] MEDS: ACAMPROSATE CALCIUM 333 MG DR TABLET PO SCH ×3 (08:40→16:12)
[2018-11-11] MEDS: MULTIVITAMINS WITH MINERALS, THERAPEUTIC TABLET PO SCH (08:40)
[2018-11-11] MEDS: METHADONE HCL 10 MG TABLET PO SCH (08:40)
[2018-11-11] MEDS: LORazepam 0.5 MG TABLET PO PRN ×2 (11:28→17:26)
[2018-11-11 16:08] VITALS: BP 123/63
[2018-11-11] MEDS: MIRTAZAPINE 15 MG TABLET PO SCH (20:21)
[2018-11-11] MEDS: ZOLPIDEM TARTRATE 10 MG TABLET PO PRN (20:21)
[2018-11-11] MEDS ORDERED: ARIPiprazole 5 MG TABLET PO SCH (21:00)
[2018-11-12 06:30] VITALS: BP 125/75
[2018-11-12 08:12] VITALS: BP 138/68
[2018-11-12] MEDS: ACAMPROSATE CALCIUM 333 MG DR TABLET PO SCH ×3 (09:14→16:10)
[2018-11-12] MEDS: LORazepam 0.5 MG TABLET PO PRN ×2 (09:15→16:10)
[2018-11-12] MEDS: GABAPENTIN 400 MG CAPSULE PO SCH ×3 (09:15→16:10)
[2018-11-12] MEDS: MULTIVITAMINS WITH MINERALS, THERAPEUTIC TABLET PO SCH (09:15)
[2018-11-12] MEDS: METHADONE HCL 10 MG TABLET PO SCH (09:15)
[2018-11-12 16:00] VITALS: BP 146/79
[2018-11-12] MEDS: MIRTAZAPINE 15 MG TABLET PO SCH (20:48)
[2018-11-12] MEDS: ARIPiprazole 10 MG TABLET PO SCH (20:48)
[2018-11-12] MEDS: ZOLPIDEM TARTRATE 10 MG TABLET PO PRN (20:48)
[2018-11-13] MEDS: GABAPENTIN 300 MG CAPSULE PO PRN (01:29)
[2018-11-13] MEDS: HydrOXYzine PAMOATE 50 MG CAPSULE PO PRN ×2 (01:53→11:07)
[2018-11-13 01:59] VITALS: BP 134/83
[2018-11-13 08:30] VITALS: BP 142/79
[2018-11-13] MEDS: METHADONE HCL 10 MG TABLET PO SCH (09:29)
[2018-11-13] MEDS: GABAPENTIN 400 MG CAPSULE PO SCH ×3 (09:29→16:39)
[2018-11-13] MEDS: MULTIVITAMINS WITH MINERALS, THERAPEUTIC TABLET PO SCH (09:30)
[2018-11-13] MEDS: ACAMPROSATE CALCIUM 333 MG DR TABLET PO SCH ×3 (09:30→16:39)
[2018-11-13] MEDS ORDERED: TUBERCULIN, PURIFIED PROTEIN DERIVATIVE 5 TU/0.1 ML SYRINGE ID ONE (11:30)
[2018-11-13] MEDS: LORazepam 0.5 MG TABLET PO PRN (13:54)
[2018-11-13 16:15] VITALS: BP 126/75
[2018-11-13] MEDS: ZOLPIDEM TARTRATE 10 MG TABLET PO PRN (20:51)
[2018-11-13] MEDS: ARIPiprazole 10 MG TABLET PO SCH (20:51)
[2018-11-13] MEDS: MIRTAZAPINE 15 MG TABLET PO SCH (20:51)
[2018-11-14] MEDS: LORazepam 0.5 MG TABLET PO PRN ×3 (04:20→17:47)
[2018-11-14 04:49] VITALS: BP 144/81
[2018-11-14 08:06] VITALS: BP 143/79
[2018-11-14] MEDS: GABAPENTIN 400 MG CAPSULE PO SCH ×3 (08:52→16:55)
[2018-11-14] MEDS: ACAMPROSATE CALCIUM 333 MG DR TABLET PO SCH ×3 (08:52→16:55)
[2018-11-14] MEDS: METHADONE HCL 10 MG TABLET PO SCH (08:52)
[2018-11-14] MEDS: MULTIVITAMINS WITH MINERALS, THERAPEUTIC TABLET PO SCH (08:52)
[2018-11-14 12:38] VITALS: BP 119/58
[2018-11-14 16:01] VITALS: BP 124/66
[2018-11-14] MEDS: ARIPiprazole 10 MG TABLET PO SCH (20:02)
[2018-11-14] MEDS: MIRTAZAPINE 15 MG TABLET PO SCH (20:02)
[2018-11-14] MEDS: ZOLPIDEM TARTRATE 10 MG TABLET PO PRN (20:54)
[2018-11-15 00:15] VITALS: BP 135/66
[2018-11-15 08:18] VITALS: BP 142/70
[2018-11-15] MEDS: MULTIVITAMINS WITH MINERALS, THERAPEUTIC TABLET PO SCH (09:24)
[2018-11-15] MEDS: GABAPENTIN 400 MG CAPSULE PO SCH ×3 (09:24→17:23)
[2018-11-15] MEDS: ACAMPROSATE CALCIUM 333 MG DR TABLET PO SCH ×3 (09:24→17:23)
[2018-11-15] MEDS: METHADONE HCL 10 MG TABLET PO SCH (09:25)
[2018-11-15] MEDS: LORazepam 0.5 MG TABLET PO PRN (10:50)
[2018-11-15 17:07] VITALS: BP 118/59
[2018-11-15] MEDS: HALOPERIDOL 5 MG TABLET PO PRN (17:08)
[2018-11-15] MEDS: ARIPiprazole 10 MG TABLET PO SCH (20:01)
[2018-11-15] MEDS: MIRTAZAPINE 15 MG TABLET PO SCH (20:01)
[2018-11-15] MEDS: ZOLPIDEM TARTRATE 10 MG TABLET PO PRN (21:10)
[2018-11-16 02:03] VITALS: BP 148/76
[2018-11-16] MEDS: HALOPERIDOL 5 MG TABLET PO PRN (05:26)
[2018-11-16] MEDS: GABAPENTIN 300 MG CAPSULE PO PRN (05:26)
[2018-11-16 08:29] VITALS: BP 139/72
[2018-11-16] MEDS: MULTIVITAMINS WITH MINERALS, THERAPEUTIC TABLET PO SCH (09:13)
[2018-11-16] MEDS: METHADONE HCL 10 MG TABLET PO SCH (09:13)
[2018-11-16] MEDS: GABAPENTIN 400 MG CAPSULE PO SCH ×3 (09:13→16:35)
[2018-11-16] MEDS: ACAMPROSATE CALCIUM 333 MG DR TABLET PO SCH ×3 (09:13→16:35)
[2018-11-16] MEDS ORDERED: FluPHENAZine HCL 5 MG TABLET PO ONE (15:00)
[2018-11-16 16:11] VITALS: BP 133/61
[2018-11-16] MEDS: FluPHENAZine HCL 5 MG TABLET PO PRN (16:35)
[2018-11-16] MEDS: MIRTAZAPINE 15 MG TABLET PO SCH (20:25)
[2018-11-16] MEDS: ARIPiprazole 10 MG TABLET PO SCH (20:25)
[2018-11-16] MEDS: ZOLPIDEM TARTRATE 10 MG TABLET PO PRN (20:26)
[2018-11-17 03:05] VITALS: BP 148/79
[2018-11-17] MEDS: GABAPENTIN 300 MG CAPSULE PO PRN (05:40)
[2018-11-17] MEDS: FluPHENAZine HCL 5 MG TABLET PO PRN ×2 (05:41→17:09)
[2018-11-17 08:02] VITALS: BP 122/60
[2018-11-17] MEDS: ACAMPROSATE CALCIUM 333 MG DR TABLET PO SCH ×3 (08:23→16:21)
[2018-11-17] MEDS: GABAPENTIN 400 MG CAPSULE PO SCH ×3 (08:23→16:21)
[2018-11-17] MEDS: MULTIVITAMINS WITH MINERALS, THERAPEUTIC TABLET PO SCH (08:24)
[2018-11-17] MEDS: METHADONE HCL 10 MG TABLET PO SCH (08:24)
[2018-11-17 16:02] VITALS: BP 139/77
[2018-11-17] MEDS: ARIPiprazole 10 MG TABLET PO SCH (20:38)
[2018-11-17] MEDS: MIRTAZAPINE 15 MG TABLET PO SCH (20:38)
[2018-11-17] MEDS: ZOLPIDEM TARTRATE 10 MG TABLET PO PRN (20:38)
[2018-11-18 02:24] VITALS: BP 131/69
[2018-11-18] MEDS: GABAPENTIN 300 MG CAPSULE PO PRN (06:38)
[2018-11-18] MEDS: FluPHENAZine HCL 5 MG TABLET PO PRN ×2 (06:38→16:12)
[2018-11-18 08:06] VITALS: BP 150/79
[2018-11-18] MEDS: ACAMPROSATE CALCIUM 333 MG DR TABLET PO SCH ×3 (08:44→16:12)
[2018-11-18] MEDS: GABAPENTIN 400 MG CAPSULE PO SCH ×3 (08:44→16:12)
[2018-11-18] MEDS: METHADONE HCL 10 MG TABLET PO SCH (08:44)
[2018-11-18] MEDS: MULTIVITAMINS WITH MINERALS, THERAPEUTIC TABLET PO SCH (08:44)
[2018-11-18 16:30] VITALS: BP 113/73
[2018-11-18] MEDS: MIRTAZAPINE 15 MG TABLET PO SCH (20:47)
[2018-11-18] MEDS: ARIPiprazole 10 MG TABLET PO SCH (20:47)
[2018-11-18] MEDS: ZOLPIDEM TARTRATE 10 MG TABLET PO PRN (20:47)
[2018-11-19 05:02] VITALS: BP 125/72
[2018-11-19] MEDS: FluPHENAZine HCL 5 MG TABLET PO PRN ×2 (06:19→17:29)
[2018-11-19] MEDS: GABAPENTIN 300 MG CAPSULE PO PRN (06:19)
[2018-11-19 08:13] VITALS: BP 140/77
[2018-11-19] MEDS: ACAMPROSATE CALCIUM 333 MG DR TABLET PO SCH ×3 (09:08→17:28)
[2018-11-19] MEDS: MULTIVITAMINS WITH MINERALS, THERAPEUTIC TABLET PO SCH (09:08)
[2018-11-19] MEDS: GABAPENTIN 400 MG CAPSULE PO SCH ×3 (09:08→17:28)
[2018-11-19] MEDS: METHADONE HCL 10 MG TABLET PO SCH (09:15)
[2018-11-19 17:13] VITALS: BP 132/72
[2018-11-19] MEDS: HydrOXYzine PAMOATE 50 MG CAPSULE PO PRN (17:29)
[2018-11-19] MEDS: MIRTAZAPINE 15 MG TABLET PO SCH (21:17)
[2018-11-19] MEDS: ZOLPIDEM TARTRATE 10 MG TABLET PO PRN (21:17)
[2018-11-19] MEDS: ARIPiprazole 10 MG TABLET PO SCH (21:17)
[2018-11-20 02:01] VITALS: BP 120/71
[2018-11-20] MEDS: FluPHENAZine HCL 5 MG TABLET PO PRN ×2 (06:44→16:31)
[2018-11-20] MEDS: GABAPENTIN 300 MG CAPSULE PO PRN (06:45)
[2018-11-20 07:43] LABS: APPEARANCE,URINE CLEAR (CLEAR); BILIRUBIN,URINE NEGATIVE (NEGATIVE); GLUCOSE, URINE (UA) NEGATIVE (NEGATIVE); KETONES,URINE NEGATIVE (NEGATIVE); LEUKOCYTE ESTERASE ,URINE NEGATIVE (NEGATIVE); NITRATE,URINE NEGATIVE (NEGATIVE); OCCULT BLOOD,URINE NEGATIVE (NEGATIVE); PH,URINE 7.5 (5.0-8.0); PROTEIN,URINE NEGATIVE (NEGATIVE)
[2018-11-20 07:47] LABS: AMPHET/METH SCREEN,URINE NEGATIVE (NEGATIVE); BARBITURATE SCREEN, URINE NEGATIVE (NEGATIVE); BENZODIAZEPINES SCREEN,URINE NEGATIVE (NEGATIVE); CANNABINOID SCREEN,URINE NEGATIVE (NEGATIVE); COCAINE SCREEN,URINE NEGATIVE (NEGATIVE); METHADONE SCREEN, URINE NEGATIVE (NEGATIVE); OPIATE SCREEN,URINE NEGATIVE (NEGATIVE); PHENCYCLIDINE SCREEN,URINE NEGATIVE (NEGATIVE)
[2018-11-20 08:05] VITALS: BP 151/81
[2018-11-20] MEDS: ACAMPROSATE CALCIUM 333 MG DR TABLET PO SCH ×3 (08:27→16:31)
[2018-11-20] MEDS: METHADONE HCL 10 MG TABLET PO SCH (08:27)
[2018-11-20] MEDS: MULTIVITAMINS WITH MINERALS, THERAPEUTIC TABLET PO SCH (08:27)
[2018-11-20] MEDS: GABAPENTIN 400 MG CAPSULE PO SCH ×3 (08:28→16:31)
[2018-11-20 16:07] VITALS: BP 121/69
[2018-11-20] MEDS: LOPERAMIDE HCL 2 MG CAPSULE PO PRN (17:09)
[2018-11-20] MEDS: MIRTAZAPINE 15 MG TABLET PO SCH (20:14)
[2018-11-20] MEDS: ARIPiprazole 10 MG TABLET PO SCH (20:14)
[2018-11-20] MEDS: HydrOXYzine PAMOATE 50 MG CAPSULE PO PRN (20:14)
[2018-11-21 03:41] VITALS: BP 136/85
[2018-11-21 08:06] VITALS: BP 124/62
[2018-11-21] MEDS: METHADONE HCL 10 MG TABLET PO SCH (08:19)
[2018-11-21] MEDS: GABAPENTIN 400 MG CAPSULE PO SCH ×3 (08:19→16:41)
[2018-11-21] MEDS: MULTIVITAMINS WITH MINERALS, THERAPEUTIC TABLET PO SCH (08:20)
[2018-11-21] MEDS: ACAMPROSATE CALCIUM 333 MG DR TABLET PO SCH ×3 (08:20→16:41)
[2018-11-21] MEDS: FluPHENAZine HCL 5 MG TABLET PO PRN ×2 (12:08→16:41)
[2018-11-21 16:00] VITALS: BP 138/75
[2018-11-21] MEDS: HydrOXYzine PAMOATE 50 MG CAPSULE PO PRN (16:41)
[2018-11-21] MEDS: LOPERAMIDE HCL 2 MG CAPSULE PO PRN (18:47)
[2018-11-21] MEDS: MIRTAZAPINE 15 MG TABLET PO SCH (21:03)
[2018-11-21] MEDS: ARIPiprazole 10 MG TABLET PO SCH (21:03)
[2018-11-21] MEDS: ZOLPIDEM TARTRATE 10 MG TABLET PO PRN (21:03)
[2018-11-22 06:35] VITALS: BP 123/79
[2018-11-22 08:40] VITALS: BP 119/54
[2018-11-22] MEDS: METHADONE HCL 10 MG TABLET PO SCH (09:09)
[2018-11-22] MEDS: MULTIVITAMINS WITH MINERALS, THERAPEUTIC TABLET PO SCH (09:09)
[2018-11-22] MEDS: GABAPENTIN 400 MG CAPSULE PO SCH ×3 (09:09→16:21)
[2018-11-22] MEDS: ACAMPROSATE CALCIUM 333 MG DR TABLET PO SCH ×3 (09:09→16:21)
[2018-11-22] MEDS: FluPHENAZine HCL 5 MG TABLET PO PRN ×2 (10:33→16:21)
[2018-11-22 16:00] VITALS: BP 140/86
[2018-11-22] MEDS: HydrOXYzine PAMOATE 50 MG CAPSULE PO PRN (16:21)
[2018-11-22] MEDS: ARIPiprazole 10 MG TABLET PO SCH (20:46)
[2018-11-22] MEDS: MIRTAZAPINE 15 MG TABLET PO SCH (20:47)
[2018-11-22] MEDS: ZOLPIDEM TARTRATE 10 MG TABLET PO PRN (20:47)
[2018-11-23 06:20] VITALS: BP 128/87
[2018-11-23] MEDS: ACAMPROSATE CALCIUM 333 MG DR TABLET PO SCH ×3 (08:49→16:22)
[2018-11-23] MEDS: MULTIVITAMINS WITH MINERALS, THERAPEUTIC TABLET PO SCH (08:50)
[2018-11-23] MEDS: METHADONE HCL 10 MG TABLET PO SCH (08:50)
[2018-11-23] MEDS: GABAPENTIN 400 MG CAPSULE PO SCH ×3 (08:50→16:22)
[2018-11-23 12:25] VITALS: BP 146/83
[2018-11-23] MEDS: FluPHENAZine HCL 5 MG TABLET PO PRN (16:22)
[2018-11-23] MEDS: HydrOXYzine PAMOATE 50 MG CAPSULE PO PRN (16:23)
[2018-11-23 18:00] VITALS: BP 140/77
[2018-11-23] MEDS: MIRTAZAPINE 15 MG TABLET PO SCH (20:41)
[2018-11-23] MEDS: ARIPiprazole 15 MG TABLET PO SCH (20:42)
[2018-11-23] MEDS: ZOLPIDEM TARTRATE 10 MG TABLET PO PRN (20:42)
[2018-11-24] MEDS: MULTIVITAMINS WITH MINERALS, THERAPEUTIC TABLET PO SCH (09:49)
[2018-11-24] MEDS: ACAMPROSATE CALCIUM 333 MG DR TABLET PO SCH ×3 (09:49→16:32)
[2018-11-24] MEDS: METHADONE HCL 10 MG TABLET PO SCH (09:49)
[2018-11-24] MEDS: GABAPENTIN 400 MG CAPSULE PO SCH ×3 (09:49→16:32)
[2018-11-24] MEDS: FluPHENAZine HCL 5 MG TABLET PO PRN ×2 (13:09→20:26)
[2018-11-24 13:20] VITALS: BP 150/80
[2018-11-24 16:24] VITALS: BP 121/70
[2018-11-24] MEDS: ARIPiprazole 15 MG TABLET PO SCH (20:26)
[2018-11-24] MEDS: MIRTAZAPINE 15 MG TABLET PO SCH (20:26)
[2018-11-24] MEDS: HydrOXYzine PAMOATE 50 MG CAPSULE PO PRN (20:27)
[2018-11-25 06:05] VITALS: BP 125/83
[2018-11-25] MEDS: GABAPENTIN 300 MG CAPSULE PO PRN ×2 (06:32→15:00)
[2018-11-25] MEDS: FluPHENAZine HCL 5 MG TABLET PO PRN ×2 (06:32→16:41)
[2018-11-25 08:17] VITALS: BP 155/95
[2018-11-25] MEDS: GABAPENTIN 400 MG CAPSULE PO SCH ×3 (08:35→16:41)
[2018-11-25] MEDS: ACAMPROSATE CALCIUM 333 MG DR TABLET PO SCH ×3 (08:36→16:41)
[2018-11-25] MEDS: METHADONE HCL 10 MG TABLET PO SCH (08:36)
[2018-11-25] MEDS: MULTIVITAMINS WITH MINERALS, THERAPEUTIC TABLET PO SCH (08:36)
[2018-11-25 16:09] VITALS: BP 138/78
[2018-11-25] MEDS: MIRTAZAPINE 15 MG TABLET PO SCH (20:18)
[2018-11-25] MEDS: ARIPiprazole 15 MG TABLET PO SCH (20:18)
[2018-11-25] MEDS: HydrOXYzine PAMOATE 50 MG CAPSULE PO PRN (20:18)
[2018-11-26 08:19] VITALS: BP 139/67
[2018-11-26] MEDS: GABAPENTIN 400 MG CAPSULE PO SCH ×3 (09:02→16:18)
[2018-11-26] MEDS: METHADONE HCL 10 MG TABLET PO SCH (09:02)
[2018-11-26] MEDS: MULTIVITAMINS WITH MINERALS, THERAPEUTIC TABLET PO SCH (09:02)
[2018-11-26] MEDS: ACAMPROSATE CALCIUM 333 MG DR TABLET PO SCH ×3 (09:03→16:18)
[2018-11-26] MEDS: LOPERAMIDE HCL 2 MG CAPSULE PO PRN (11:00)
[2018-11-26 16:00] VITALS: BP 147/87
[2018-11-26] MEDS: FluPHENAZine HCL 5 MG TABLET PO PRN (16:18)
[2018-11-26] MEDS: HydrOXYzine PAMOATE 50 MG CAPSULE PO PRN (16:18)
[2018-11-26] MEDS: ARIPiprazole 15 MG TABLET PO SCH (21:04)
[2018-11-26] MEDS: ZOLPIDEM TARTRATE 10 MG TABLET PO PRN (21:05)
[2018-11-26] MEDS: MIRTAZAPINE 15 MG TABLET PO SCH (21:05)
[2018-11-27 08:00] VITALS: BP 177/89
[2018-11-27] MEDS: METHADONE HCL 10 MG TABLET PO SCH (08:24)
[2018-11-27] MEDS: MULTIVITAMINS WITH MINERALS, THERAPEUTIC TABLET PO SCH (08:24)
[2018-11-27] MEDS: GABAPENTIN 400 MG CAPSULE PO SCH ×3 (08:24→16:50)
[2018-11-27] MEDS: ACAMPROSATE CALCIUM 333 MG DR TABLET PO SCH ×3 (08:25→16:50)
[2018-11-27 10:05] VITALS: BP 148/83
[2018-11-27 16:00] VITALS: BP 128/72
[2018-11-27] MEDS: HydrOXYzine PAMOATE 50 MG CAPSULE PO PRN (16:50)
[2018-11-27] MEDS: MIRTAZAPINE 15 MG TABLET PO SCH (20:46)
[2018-11-27] MEDS: ARIPiprazole 15 MG TABLET PO SCH (20:46)
[2018-11-27] MEDS: ZOLPIDEM TARTRATE 10 MG TABLET PO PRN (20:46)
[2018-11-28 05:33] VITALS: BP 152/87
[2018-11-28 08:09] VITALS: BP 146/100
[2018-11-28] MEDS: GABAPENTIN 400 MG CAPSULE PO SCH ×3 (08:38→17:01)
[2018-11-28] MEDS: ACAMPROSATE CALCIUM 333 MG DR TABLET PO SCH ×3 (08:38→17:01)
[2018-11-28] MEDS: MULTIVITAMINS WITH MINERALS, THERAPEUTIC TABLET PO SCH (08:38)
[2018-11-28] MEDS: METHADONE HCL 10 MG TABLET PO SCH (08:38)
[2018-11-28] MEDS: GABAPENTIN 300 MG CAPSULE PO PRN (11:10)
[2018-11-28] MEDS: HydrOXYzine PAMOATE 50 MG CAPSULE PO PRN (17:01)
[2018-11-28 17:23] VITALS: BP 140/60
[2018-11-28] MEDS: ARIPiprazole 15 MG TABLET PO SCH (20:10)
[2018-11-28] MEDS: MIRTAZAPINE 15 MG TABLET PO SCH (20:10)
[2018-11-28] MEDS: ZOLPIDEM TARTRATE 10 MG TABLET PO PRN (20:11)
[2018-11-29 03:25] VITALS: BP 151/94
[2018-11-29] MEDS: MULTIVITAMINS WITH MINERALS, THERAPEUTIC TABLET PO SCH (08:05)
[2018-11-29] MEDS: GABAPENTIN 400 MG CAPSULE PO SCH ×3 (08:05→16:06)
[2018-11-29] MEDS: ACAMPROSATE CALCIUM 333 MG DR TABLET PO SCH ×3 (08:05→16:06)
[2018-11-29] MEDS: METHADONE HCL 10 MG TABLET PO SCH (08:05)
[2018-11-29 08:11] VITALS: BP 150/84
[2018-11-29] MEDS: HydrOXYzine PAMOATE 50 MG CAPSULE PO PRN (16:06)
[2018-11-29 16:11] VITALS: BP 130/73
[2018-11-29] MEDS: MIRTAZAPINE 15 MG TABLET PO SCH (20:34)
[2018-11-29] MEDS: ARIPiprazole 15 MG TABLET PO SCH (20:34)
[2018-11-29] MEDS: ZOLPIDEM TARTRATE 10 MG TABLET PO PRN (20:34)
[2018-11-30 04:08] VITALS: BP 134/89
[2018-11-30 08:00] VITALS: BP 153/90
[2018-11-30] MEDS: GABAPENTIN 400 MG CAPSULE PO SCH ×3 (08:18→17:00)
[2018-11-30] MEDS: ACAMPROSATE CALCIUM 333 MG DR TABLET PO SCH ×3 (08:18→17:00)
[2018-11-30] MEDS: METHADONE HCL 10 MG TABLET PO SCH (08:19)
[2018-11-30] MEDS: MULTIVITAMINS WITH MINERALS, THERAPEUTIC TABLET PO SCH (08:19)
[2018-11-30 16:40] VITALS: BP 132/68
[2018-11-30] MEDS: OLANZapine 5 MG RAPDIS TABLET PO PRN (17:00)
[2018-11-30] MEDS: ARIPiprazole 15 MG TABLET PO SCH (21:05)
[2018-11-30] MEDS: MIRTAZAPINE 15 MG TABLET PO SCH (21:05)
[2018-11-30] MEDS: ZOLPIDEM TARTRATE 10 MG TABLET PO PRN (21:06)
[2018-12-01 04:25] VITALS: BP 157/86
[2018-12-01 08:14] VITALS: BP 139/65
[2018-12-01] MEDS: ATOMOXETINE HCL 25 MG CAPSULE PO SCH (08:17)
[2018-12-01] MEDS: GABAPENTIN 400 MG CAPSULE PO SCH ×3 (08:17→16:07)
[2018-12-01] MEDS: MULTIVITAMINS WITH MINERALS, THERAPEUTIC TABLET PO SCH (08:17)
[2018-12-01] MEDS: ACAMPROSATE CALCIUM 333 MG DR TABLET PO SCH ×3 (08:17→16:07)
[2018-12-01] MEDS: METHADONE HCL 10 MG TABLET PO SCH (08:18)
[2018-12-01 16:00] VITALS: BP 144/83
[2018-12-01] MEDS: LOPERAMIDE HCL 2 MG CAPSULE PO PRN (19:08)
[2018-12-01] MEDS: ZOLPIDEM TARTRATE 10 MG TABLET PO PRN (20:52)
[2018-12-01] MEDS: MIRTAZAPINE 15 MG TABLET PO SCH (20:52)
[2018-12-01] MEDS: ARIPiprazole 15 MG TABLET PO SCH (20:52)
[2018-12-02 06:32] VITALS: BP 140/75
[2018-12-02 08:20] VITALS: BP_SYST 154; BP_SYST 173; BP_DIAS 85; BP_DIAS 95
[2018-12-02] MEDS: ATOMOXETINE HCL 25 MG CAPSULE PO SCH (08:32)
[2018-12-02] MEDS: ACAMPROSATE CALCIUM 333 MG DR TABLET PO SCH ×3 (08:32→16:09)
[2018-12-02] MEDS: METHADONE HCL 10 MG TABLET PO SCH (08:33)
[2018-12-02] MEDS: MULTIVITAMINS WITH MINERALS, THERAPEUTIC TABLET PO SCH (08:33)
[2018-12-02] MEDS: GABAPENTIN 400 MG CAPSULE PO SCH ×3 (08:34→16:09)
[2018-12-02 16:34] VITALS: BP 136/77
[2018-12-02] MEDS: ARIPiprazole 15 MG TABLET PO SCH (20:33)
[2018-12-02] MEDS: MIRTAZAPINE 15 MG TABLET PO SCH (20:33)
[2018-12-02] MEDS: ZOLPIDEM TARTRATE 10 MG TABLET PO PRN (20:34)
[2018-12-03 03:18] VITALS: BP 158/73
[2018-12-03 08:10] VITALS: BP 128/61
[2018-12-03] MEDS: GABAPENTIN 400 MG CAPSULE PO SCH ×3 (08:47→16:17)
[2018-12-03] MEDS: ACAMPROSATE CALCIUM 333 MG DR TABLET PO SCH ×3 (08:47→16:17)
[2018-12-03] MEDS: MULTIVITAMINS WITH MINERALS, THERAPEUTIC TABLET PO SCH (08:47)
[2018-12-03] MEDS: METHADONE HCL 10 MG TABLET PO SCH (08:47)
[2018-12-03] MEDS: ATOMOXETINE HCL 25 MG CAPSULE PO SCH (08:48)
[2018-12-03 16:00] VITALS: BP 141/73
[2018-12-03] MEDS: MIRTAZAPINE 15 MG TABLET PO SCH (20:21)
[2018-12-03] MEDS: ARIPiprazole 15 MG TABLET PO SCH (20:21)
[2018-12-04 01:33] VITALS: BP 129/78
[2018-12-04 08:05] VITALS: BP 138/81
[2018-12-04] MEDS: ACAMPROSATE CALCIUM 333 MG DR TABLET PO SCH ×3 (08:18→16:33)
[2018-12-04] MEDS: MULTIVITAMINS WITH MINERALS, THERAPEUTIC TABLET PO SCH (08:19)
[2018-12-04] MEDS: GABAPENTIN 300 MG CAPSULE PO SCH ×3 (08:19→16:33)
[2018-12-04] MEDS: ATOMOXETINE HCL 25 MG CAPSULE PO SCH (08:21)
[2018-12-04] MEDS: METHADONE HCL 10 MG TABLET PO SCH (08:21)
[2018-12-04 16:00] VITALS: BP 138/92
[2018-12-04] MEDS: OLANZapine 5 MG RAPDIS TABLET PO PRN (16:33)
[2018-12-04] MEDS: ZOLPIDEM TARTRATE 10 MG TABLET PO PRN (20:15)
[2018-12-04] MEDS: MIRTAZAPINE 15 MG TABLET PO SCH (20:15)
[2018-12-04] MEDS: ARIPiprazole 15 MG TABLET PO SCH (20:15)
[2018-12-05 06:03] VITALS: BP 136/89
[2018-12-05 08:05] VITALS: BP 149/85
[2018-12-05] MEDS: ACAMPROSATE CALCIUM 333 MG DR TABLET PO SCH ×3 (08:24→16:31)
[2018-12-05] MEDS: ATOMOXETINE HCL 25 MG CAPSULE PO SCH (08:25)
[2018-12-05] MEDS: MULTIVITAMINS WITH MINERALS, THERAPEUTIC TABLET PO SCH (08:25)
[2018-12-05] MEDS: GABAPENTIN 300 MG CAPSULE PO SCH ×3 (08:25→16:31)
[2018-12-05] MEDS: METHADONE HCL 10 MG TABLET PO SCH (08:26)
[2018-12-05 16:17] VITALS: BP 138/84
[2018-12-05] MEDS: HydrOXYzine PAMOATE 50 MG CAPSULE PO PRN (16:31)
[2018-12-05] MEDS: ARIPiprazole 15 MG TABLET PO SCH (20:31)
[2018-12-05] MEDS: MIRTAZAPINE 15 MG TABLET PO SCH (20:31)
[2018-12-05] MEDS: ZOLPIDEM TARTRATE 10 MG TABLET PO PRN (20:31)
[2018-12-06 04:57] VITALS: BP 139/82
[2018-12-06 08:12] VITALS: BP 149/89
[2018-12-06] MEDS: MULTIVITAMINS WITH MINERALS, THERAPEUTIC TABLET PO SCH (08:25)
[2018-12-06] MEDS: ATOMOXETINE HCL 25 MG CAPSULE PO SCH (08:25)
[2018-12-06] MEDS: METHADONE HCL 10 MG TABLET PO SCH (08:26)
[2018-12-06] MEDS: ACAMPROSATE CALCIUM 333 MG DR TABLET PO SCH ×3 (08:27→16:35)
[2018-12-06] MEDS: GABAPENTIN 300 MG CAPSULE PO SCH ×3 (08:27→16:35)
[2018-12-06] MEDS: LOPERAMIDE HCL 2 MG CAPSULE PO PRN (15:59)
[2018-12-06 16:00] VITALS: BP 139/82
[2018-12-06] MEDS: HydrOXYzine PAMOATE 50 MG CAPSULE PO PRN (16:35)
[2018-12-06] MEDS: MIRTAZAPINE 15 MG TABLET PO SCH (20:22)
[2018-12-06] MEDS: ARIPiprazole 15 MG TABLET PO SCH (20:22)
[2018-12-06] MEDS: ZOLPIDEM TARTRATE 10 MG TABLET PO PRN (20:22)
[2018-12-07 00:58] VITALS: BP 132/83
[2018-12-07 08:00] VITALS: BP 146/90
[2018-12-07] MEDS: GABAPENTIN 300 MG CAPSULE PO SCH ×3 (08:17→16:10)
[2018-12-07] MEDS: ACAMPROSATE CALCIUM 333 MG DR TABLET PO SCH ×3 (08:17→16:10)
[2018-12-07] MEDS: MULTIVITAMINS WITH MINERALS, THERAPEUTIC TABLET PO SCH (08:17)
[2018-12-07] MEDS: ATOMOXETINE HCL 25 MG CAPSULE PO SCH (08:18)
[2018-12-07] MEDS: METHADONE HCL 10 MG TABLET PO SCH (08:18)
[2018-12-07 16:26] VITALS: BP 136/89
[2018-12-07] MEDS: ZOLPIDEM TARTRATE 10 MG TABLET PO PRN (20:26)
[2018-12-07] MEDS: MIRTAZAPINE 15 MG TABLET PO SCH (20:26)
[2018-12-07] MEDS: ARIPiprazole 15 MG TABLET PO SCH (20:26)
[2018-12-08 01:55] VITALS: BP 137/84
[2018-12-08] MEDS: METHADONE HCL 10 MG TABLET PO SCH (08:17)
[2018-12-08] MEDS: GABAPENTIN 300 MG CAPSULE PO SCH ×3 (08:17→16:45)
[2018-12-08] MEDS: ACAMPROSATE CALCIUM 333 MG DR TABLET PO SCH ×3 (08:17→16:45)
[2018-12-08] MEDS: MULTIVITAMINS WITH MINERALS, THERAPEUTIC TABLET PO SCH (08:17)
[2018-12-08] MEDS: ATOMOXETINE HCL 25 MG CAPSULE PO SCH (08:18)
[2018-12-08 08:45] VITALS: BP 155/93
[2018-12-08 16:06] VITALS: BP 140/69
[2018-12-08] MEDS: OLANZapine 5 MG RAPDIS TABLET PO PRN (16:45)
[2018-12-08] MEDS: ARIPiprazole 15 MG TABLET PO SCH (20:10)
[2018-12-08] MEDS: MIRTAZAPINE 15 MG TABLET PO SCH (20:10)
[2018-12-08] MEDS: HydrOXYzine PAMOATE 50 MG CAPSULE PO PRN (20:10)
[2018-12-09 04:19] VITALS: BP 146/85
[2018-12-09] MEDS: ATOMOXETINE HCL 25 MG CAPSULE PO SCH (08:05)
[2018-12-09] MEDS: METHADONE HCL 10 MG TABLET PO SCH (08:06)
[2018-12-09] MEDS: MULTIVITAMINS WITH MINERALS, THERAPEUTIC TABLET PO SCH (08:06)
[2018-12-09] MEDS: ACAMPROSATE CALCIUM 333 MG DR TABLET PO SCH ×3 (08:06→16:30)
[2018-12-09] MEDS: GABAPENTIN 300 MG CAPSULE PO SCH ×3 (08:06→16:30)
[2018-12-09 08:24] VITALS: BP 148/87
[2018-12-09 16:09] VITALS: BP 140/90
[2018-12-09 18:48] VITALS: BP 142/87
[2018-12-09] MEDS: CloNIDine HCL 0.1 MG TABLET PO PRN (18:48)
[2018-12-09] MEDS: ZOLPIDEM TARTRATE 10 MG TABLET PO PRN (20:06)
[2018-12-09] MEDS: MIRTAZAPINE 15 MG TABLET PO SCH (20:07)
[2018-12-09] MEDS: ARIPiprazole 15 MG TABLET PO SCH (20:07)
[2018-12-10 07:09] VITALS: BP 135/78
[2018-12-10 08:11] VITALS: BP 128/88
[2018-12-10] MEDS: GABAPENTIN 300 MG CAPSULE PO SCH ×3 (08:27→16:34)
[2018-12-10] MEDS: ACAMPROSATE CALCIUM 333 MG DR TABLET PO SCH ×3 (08:27→16:34)
[2018-12-10] MEDS: ATOMOXETINE HCL 25 MG CAPSULE PO SCH (08:28)
[2018-12-10] MEDS: MULTIVITAMINS WITH MINERALS, THERAPEUTIC TABLET PO SCH (08:28)
[2018-12-10] MEDS: METHADONE HCL 10 MG TABLET PO SCH (08:28)
[2018-12-10 16:10] VITALS: BP 128/77
[2018-12-10] MEDS: ARIPiprazole 15 MG TABLET PO SCH (20:46)
[2018-12-10] MEDS: ZOLPIDEM TARTRATE 10 MG TABLET PO PRN (20:46)
[2018-12-10] MEDS: MIRTAZAPINE 15 MG TABLET PO SCH (20:46)
[2018-12-11 05:18] VITALS: BP 122/72
[2018-12-11] MEDS: ATOMOXETINE HCL 25 MG CAPSULE PO SCH (08:17)
[2018-12-11] MEDS: MULTIVITAMINS WITH MINERALS, THERAPEUTIC TABLET PO SCH (08:19)
[2018-12-11] MEDS: ACAMPROSATE CALCIUM 333 MG DR TABLET PO SCH ×3 (08:19→16:13)
[2018-12-11] MEDS: GABAPENTIN 300 MG CAPSULE PO SCH ×3 (08:20→16:13)
[2018-12-11 08:21] VITALS: BP_SYST 139; BP_SYST 198; BP_DIAS 89; BP_DIAS 96
[2018-12-11] MEDS ORDERED: METHADONE HCL 10 MG TABLET PO SCH (09:00)
[2018-12-11 16:00] VITALS: BP 139/74
[2018-12-11] MEDS: LORazepam 1 MG TABLET PO PRN (17:25)
[2018-12-11] MEDS: MIRTAZAPINE 15 MG TABLET PO SCH (20:35)
[2018-12-11] MEDS: ZOLPIDEM TARTRATE 10 MG TABLET PO PRN (20:35)
[2018-12-11] MEDS: ARIPiprazole 15 MG TABLET PO SCH (20:35)
[2018-12-12 06:28] VITALS: BP 144/82
[2018-12-12 08:05] VITALS: BP 145/80
[2018-12-12] MEDS: ATOMOXETINE HCL 25 MG CAPSULE PO SCH (08:13)
[2018-12-12] MEDS: MULTIVITAMINS WITH MINERALS, THERAPEUTIC TABLET PO SCH (08:14)
[2018-12-12] MEDS: ACAMPROSATE CALCIUM 333 MG DR TABLET PO SCH ×3 (08:14→16:12)
[2018-12-12] MEDS: GABAPENTIN 300 MG CAPSULE PO SCH ×3 (08:14→16:12)
[2018-12-12] MEDS: LORazepam 1 MG TABLET PO PRN ×3 (08:52→19:10)
[2018-12-12 16:46] VITALS: BP 154/89
[2018-12-12] MEDS: ARIPiprazole 15 MG TABLET PO SCH (20:25)
[2018-12-12] MEDS: MIRTAZAPINE 15 MG TABLET PO SCH (20:25)
[2018-12-12] MEDS: ZOLPIDEM TARTRATE 10 MG TABLET PO PRN (20:25)
[2018-12-13 01:41] VITALS: BP 139/90
[2018-12-13] MEDS: LORazepam 1 MG TABLET PO PRN ×5 (01:48→21:24)
[2018-12-13] MEDS: ACAMPROSATE CALCIUM 333 MG DR TABLET PO SCH ×3 (08:01→16:40)
[2018-12-13] MEDS: ATOMOXETINE HCL 25 MG CAPSULE PO SCH (08:01)
[2018-12-13] MEDS: MULTIVITAMINS WITH MINERALS, THERAPEUTIC TABLET PO SCH (08:01)
[2018-12-13] MEDS: GABAPENTIN 300 MG CAPSULE PO SCH ×3 (08:02→16:41)
[2018-12-13 08:25] VITALS: BP 155/80
[2018-12-13 16:39] VITALS: BP 161/94
[2018-12-13] MEDS: CloNIDine HCL 0.1 MG TABLET PO PRN (16:41)
[2018-12-13 17:40] VITALS: BP 138/82
[2018-12-13] MEDS: ARIPiprazole 15 MG TABLET PO SCH (20:41)
[2018-12-13] MEDS: MIRTAZAPINE 15 MG TABLET PO SCH (20:42)
[2018-12-13] MEDS: HydrOXYzine PAMOATE 50 MG CAPSULE PO PRN (20:42)
[2018-12-13] MEDS: ZOLPIDEM TARTRATE 10 MG TABLET PO PRN (20:42)
[2018-12-14] VITALS (9 sets, daily range): BP systolic 138–188; BP diastolic 79–122
[2018-12-14] MEDS: LORazepam 1 MG TABLET PO PRN ×4 (01:54→13:02)
[2018-12-14] MEDS: ATOMOXETINE HCL 25 MG CAPSULE PO SCH (08:51)
[2018-12-14] MEDS: ACAMPROSATE CALCIUM 333 MG DR TABLET PO SCH ×3 (08:52→17:00)
[2018-12-14] MEDS: GABAPENTIN 300 MG CAPSULE PO SCH ×4 (08:52→21:39)
[2018-12-14] MEDS: MULTIVITAMINS WITH MINERALS, THERAPEUTIC TABLET PO SCH (08:53)
[2018-12-14] MEDS: CloNIDine HCL 0.1 MG TABLET PO PRN ×2 (08:53→11:15)
[2018-12-14] MEDS: GABAPENTIN 300 MG CAPSULE PO PRN (11:15)
[2018-12-14] MEDS: ARIPiprazole 15 MG TABLET PO SCH (21:39)
[2018-12-14] MEDS: MIRTAZAPINE 15 MG TABLET PO SCH (21:39)
[2018-12-14] MEDS: ZOLPIDEM TARTRATE 10 MG TABLET PO PRN (21:40)
[2018-12-14] MEDS: OLANZapine 5 MG RAPDIS TABLET PO PRN (21:54)
[2018-12-14] MEDS: LORazepam 2 MG TABLET PO PRN (21:54)
[2018-12-15] MEDS: OLANZapine 5 MG RAPDIS TABLET PO PRN ×2 (02:15→09:49)
[2018-12-15] MEDS: LORazepam 2 MG TABLET PO PRN ×2 (02:15→09:51)
[2018-12-15 02:46] VITALS: BP 168/105
[2018-12-15] MEDS: CloNIDine HCL 0.1 MG TABLET PO PRN ×2 (02:49→06:46)
[2018-12-15 03:46] VITALS: BP 155/94
[2018-12-15 06:43] VITALS: BP 172/106
[2018-12-15 08:05] VITALS: BP 147/91
[2018-12-15 08:31] VITALS: BP 147/91
[2018-12-15] MEDS ORDERED: CloNIDine HCL 0.1 MG TABLET PO PRN (09:30)
[2018-12-15] MEDS: MULTIVITAMINS WITH MINERALS, THERAPEUTIC TABLET PO SCH (09:49)
[2018-12-15] MEDS: HydrOXYzine PAMOATE 50 MG CAPSULE PO PRN (09:50)
[2018-12-15] MEDS: GABAPENTIN 300 MG CAPSULE PO SCH ×4 (09:51→20:29)
[2018-12-15] MEDS: ACAMPROSATE CALCIUM 333 MG DR TABLET PO SCH ×3 (09:51→16:53)
[2018-12-15] MEDS: CloNIDine HCL 0.1 MG TABLET PO SCH ×2 (13:31→17:00)
[2018-12-15 17:35] VITALS: BP 150/73
[2018-12-15] MEDS: ARIPiprazole 15 MG TABLET PO SCH (20:29)
[2018-12-15] MEDS: MIRTAZAPINE 15 MG TABLET PO SCH (20:29)
[2018-12-15] MEDS: ZOLPIDEM TARTRATE 10 MG TABLET PO PRN (21:33)
[2018-12-16 06:32] VITALS: BP 183/105
[2018-12-16] MEDS: HydrOXYzine PAMOATE 50 MG CAPSULE PO PRN (07:28)
[2018-12-16] MEDS: GABAPENTIN 300 MG CAPSULE PO SCH ×4 (07:28→20:57)
[2018-12-16] MEDS: ACAMPROSATE CALCIUM 333 MG DR TABLET PO SCH ×3 (07:28→17:16)
[2018-12-16] MEDS: OLANZapine 5 MG RAPDIS TABLET PO PRN ×2 (07:28→11:28)
[2018-12-16] MEDS: LORazepam 2 MG TABLET PO PRN ×2 (07:28→11:28)
[2018-12-16] MEDS: MULTIVITAMINS WITH MINERALS, THERAPEUTIC TABLET PO SCH (07:28)
[2018-12-16] MEDS: CloNIDine HCL 0.1 MG TABLET PO SCH ×3 (07:29→17:18)
[2018-12-16] MEDS: IBUPROFEN 600 MG TABLET PO PRN ×2 (07:30→12:45)
[2018-12-16 09:19] VITALS: BP 145/87
[2018-12-16] MEDS: GABAPENTIN 300 MG CAPSULE PO PRN (11:42)
[2018-12-16] MEDS: AmLODIPine BESYLATE 10 MG TABLET PO SCH (13:54)
[2018-12-16 16:54] VITALS: BP 108/78
[2018-12-16] MEDS: ZOLPIDEM TARTRATE 10 MG TABLET PO PRN (20:56)
[2018-12-16] MEDS: ARIPiprazole 15 MG TABLET PO SCH (20:56)
[2018-12-16] MEDS: MIRTAZAPINE 15 MG TABLET PO SCH (20:58)
[2018-12-17] MEDS: LORazepam 2 MG TABLET PO PRN ×2 (02:46→10:11)
[2018-12-17 02:47] VITALS: BP 160/94
[2018-12-17 08:51] VITALS: BP 164/108
[2018-12-17] MEDS: GABAPENTIN 300 MG CAPSULE PO SCH ×2 (09:07→13:00)
[2018-12-17] MEDS: CloNIDine HCL 0.1 MG TABLET PO SCH ×2 (09:07→13:00)
[2018-12-17] MEDS: ACAMPROSATE CALCIUM 333 MG DR TABLET PO SCH ×2 (09:07→13:00)
[2018-12-17] MEDS: AmLODIPine BESYLATE 10 MG TABLET PO SCH (09:08)
[2018-12-17] MEDS: MULTIVITAMINS WITH MINERALS, THERAPEUTIC TABLET PO SCH (09:08)
[2018-12-17 12:39] LABS: ABG A-A DIFF O2 566.5 mmHg (10-20.0); ABG BASE EXCESS -6.1 mmol/L (-2.0-3.0); ABG CARBOXYHEMOGLOBIN 0.9 % (0.0-1.5); ABG HCO3 19.7 mmol/L (22.0-26.0); ABG METHEMOGLOBIN 0.3 % (0.0-1.5); ABG OXYGEN CONTENT 20.9 mL/dL (15.0-23.0); ABG OXYGEN SATURATION 96.7 % (95.0-98.0); ABG OXYHEMOGLOBIN 95.5 % (94.0-100.0); ABG PCO2 43 mmHg (35-45); ABG PH 7.295 (7.35-7.450); ABG TOTAL HEMOGLOBIN 15.5 G/dL (12.0-18.0); PO2, ARTERIAL BG 103.6 mmHg (79.0-87.0); SOURCE, BLOOD GAS ARTERIAL; TEMPERATURE, FAHRENHEIT, BG 98.6 FAHREN (96.0-98.6)
[2018-12-17 12:40] LABS: O2 DEVICE,BLOOD GAS NRB (ROOM AIR); SITE, BLOOD GAS LFT RADIAL
== END 2018-12-17 11:55 | disposition still patient (30) | DRG 750 ==
LOC: B3A 22:14 → 3EC 12-14 21:06
PROVIDERS: ADMIT Psychiatry & Neurology Psychiatry; ATTEND Psychiatry & Neurology Psychiatry
DX: F25.0 Schizoaffective disorder, bipolar type (principal); E46 Unspecified protein-calorie malnutrition; E11.9 Type 2 diabetes mellitus without complications; G40.909 Epilepsy, unspecified, not intractable, without status epilepticus; D64.9 Anemia, unspecified; H50.9 Unspecified strabismus; G89.4 Chronic pain syndrome; I10 Essential (primary) hypertension; R47.81 Slurred speech; Z59.0 Homelessness; Z79.899 Other long term (current) drug therapy; Z81.8 Family history of other mental and behavioral disorders; Z91.19 Patient's noncompliance with other medical treatment and regimen; Z88.0 Allergy status to penicillin; Z65.3 Problems related to other legal circumstances; Z68.27 Body mass index [BMI] 27.0-27.9, adult
CPT/HCPCS: 80307; 82805; 83036; 84439; 84443; 87081; J3420

== ENCOUNTER 2018-12-14 16:07 | Emergency (ER) | payer MEDICAID, OTHER ==
[~2018-12-14] VITALS: Ht 172.7 cm; Wt 100.0 kg
[2018-12-14 17:04] LABS: BASOPHILS % (AUTO) 0.2 % (0.0-2.0); EOSINOPHILS % (AUTO) 1.2 % (1.0-6.0); HEMATOCRIT 40.9 % (41-53); LYMPHOCYTES # (AUTO) 1.3 K/uL (1.0-4.8); LYMPHOCYTES % (AUTO) 16.5 % (22.0-44.0); MEAN CORPUSCULAR HEMOGLOBIN 28.3 pg (26.0-34.0); MEAN CORPUSCULAR HGB CONC 31.9 G/dL (31.0-37.0); MEAN CORPUSCULAR VOLUME 89 fL (80-100); MONOCYTES # (AUTO) 0.6 K/uL (0.1-1.0); MONOCYTES % (AUTO) 7.9 % (2.0-9.0); NEUTROPHILS # (AUTO) 5.8 K/uL (1.8-7.7); NEUTROPHILS % (AUTO) 74.2 % (40.0-70.0); PLATELET COUNT (AUTO) 206 K/uL (150-450); RED BLOOD CELL COUNT(AUTO) 4.61 MIL/uL (4.50-5.90); RED CELL DISTRIBUTION WIDTH 15.8 % (11.5-14.5)
[2018-12-14 17:16] LABS: ANION GAP 8 mmol/L (8-16); CALCIUM, TOTAL 9.3 mg/dL (8.8-10.5); CARBON DIOXIDE 27 mmol/L (22-29); CHLORIDE 107 mmol/L (98-107); CREATININE 1.04 mg/dL (0.60-1.30); GLOMERULAR FILTR. RATE CALC > 60 mL/min (>60); GLUCOSE,RANDOM 101 mg/dL (70-110); POTASSIUM 3.8 mmol/L (3.5-5.1); SODIUM SERUM 142 mmol/L (136-145); UREA NITROGEN, BLOOD 21 mg/dL (7-18)
[2018-12-14 17:23] LABS: ALANINE AMINOTRANSFERASE 180 U/L (12-78); ALBUMIN 3.4 g/dL (3.4-5.0); ALKALINE PHOSPHATASE 115 U/L (46-116); ASPARTATE AMINOTRANSFERASE 95 U/L (15-37); BILIRUBIN,TOTAL 0.5 mg/dL (0.1-1.0); TOTAL PROTEIN, SERUM 7.3 g/dL (6.4-8.2)
[2018-12-14 17:30] LABS: B-TYPE NATRIURETIC PEPTIDE 49 pg/mL (0-100)
[2018-12-14 17:59] LABS: APPEARANCE,URINE CLEAR (CLEAR); BILIRUBIN,URINE NEGATIVE (NEGATIVE); GLUCOSE, URINE (UA) NEGATIVE (NEGATIVE); KETONES,URINE NEGATIVE (NEGATIVE); LEUKOCYTE ESTERASE ,URINE NEGATIVE (NEGATIVE); NITRATE,URINE NEGATIVE (NEGATIVE); OCCULT BLOOD,URINE NEGATIVE (NEGATIVE); PH,URINE 5.5 (5.0-8.0); PROTEIN,URINE TRACE (NEGATIVE)
[2018-12-14 19:16] VITALS: BP 135/75
== END 2018-12-14 20:42 | disposition other institution (70) ==
LOC: EMS 16:08
DX: Z02.89 Encounter for other administrative examinations (principal); I48.91 Unspecified atrial fibrillation; F41.9 Anxiety disorder, unspecified; I10 Essential (primary) hypertension; F17.210 Nicotine dependence, cigarettes, uncomplicated; F12.90 Cannabis use, unspecified, uncomplicated; F11.90 Opioid use, unspecified, uncomplicated; Z59.0 Homelessness; Z88.0 Allergy status to penicillin
CPT/HCPCS: 93005

== ENCOUNTER 2018-12-17 12:19 | Inpatient (IN) | payer OTHER ==
[~2018-12-17] VITALS: Ht 182.9 cm; Wt 92.3 kg
[2018-12-17 13:01] LABS: BASOPHILS % (AUTO) 0.4 % (0.0-2.0); EOSINOPHILS % (AUTO) 1.5 % (1.0-6.0); HEMATOCRIT 46.6 % (41-53); HEMOGLOBIN 14.9 g/dL (13.5-17.5); LYMPHOCYTES # (AUTO) 1.5 K/uL (1.0-4.8); LYMPHOCYTES % (AUTO) 15.5 % (22.0-44.0); MEAN CORPUSCULAR HEMOGLOBIN 28.8 pg (26.0-34.0); MEAN CORPUSCULAR VOLUME 90 fL (80-100); MONOCYTES # (AUTO) 0.7 K/uL (0.1-1.0); MONOCYTES % (AUTO) 6.9 % (2.0-9.0); NEUTROPHILS # (AUTO) 7.5 K/uL (1.8-7.7); NEUTROPHILS % (AUTO) 75.7 % (40.0-70.0); PLATELET COUNT (AUTO) 203 K/uL (150-450); RED BLOOD CELL COUNT(AUTO) 5.18 MIL/uL (4.50-5.90); RED CELL DISTRIBUTION WIDTH 15.6 % (11.5-14.5)
[2018-12-17] MEDS ORDERED: ONDANSETRON HCL 4 MG/2 ML VIAL IVP PRN ×2 (13:15→14:00)
[2018-12-17 13:18] LABS: ANION GAP 14 mmol/L (8-16); CALCIUM, TOTAL 9.2 mg/dL (8.8-10.5); CARBON DIOXIDE 24 mmol/L (22-29); CHLORIDE 104 mmol/L (98-107); CREATININE 1.01 mg/dL (0.60-1.30); GLOMERULAR FILTR. RATE CALC > 60 mL/min (>60); GLUCOSE,RANDOM 133 mg/dL (70-110); SODIUM SERUM 142 mmol/L (136-145); UREA NITROGEN, BLOOD 27 mg/dL (7-18)
[2018-12-17 13:23] LABS: ALANINE AMINOTRANSFERASE 190 U/L (12-78); ALBUMIN 3.3 g/dL (3.4-5.0); ALKALINE PHOSPHATASE 119 U/L (46-116); ASPARTATE AMINOTRANSFERASE 95 U/L (15-37); BILIRUBIN,TOTAL 0.7 mg/dL (0.1-1.0); TOTAL PROTEIN, SERUM 7.8 g/dL (6.4-8.2)
[2018-12-17] MEDS ORDERED: MAGNESIUM HYDROXIDE SUSPENSION 30 ML UDCUP PO PRN (14:00)
[2018-12-17] MEDS ORDERED: *CLINICAL-CEFEPIME DOSING CLINICAL ONE (14:00)
[2018-12-17] MEDS ORDERED: ACETAMINOPHEN 325 MG TABLET PO PRN (14:00)
[2018-12-17] MEDS ORDERED: DEXTROSE 5%-0.45% SODIUM CHL 1,000 ML IV ONE (14:00)
[2018-12-17] MEDS ORDERED: ALBUTEROL SULFATE 2.5 MG/0.5 ML NEB SOLUTION NEB PRN (14:00)
[2018-12-17] MEDS ORDERED: CEFEPIME HCL 1 GM in DEXTROSE 5%-WATER 50 ML IV ONE (14:15)
[2018-12-17 14:38] VITALS: BP 117/83
[2018-12-17] MEDS ORDERED: IPRATROPIUM BROMIDE 0.5 MG/2.5 ML NEB SOLUTION NEB SCH (15:00)
[2018-12-17] MEDS ORDERED: ALBUTEROL SULFATE 2.5 MG/0.5 ML NEB SOLUTION NEB SCH (15:00)
[2018-12-17] MEDS: HEPARIN SODIUM,PORCINE 5,000 UNITS/ML VIAL SQ SCH ×2 (17:46→23:27)
[2018-12-17] MEDS: MORPHINE SULFATE 2 MG/ML SYRINGE IVP PRN ×2 (19:00→23:27)
[2018-12-17 20:00] VITALS: BP 155/88
[2018-12-17] MEDS: DOCUSATE SODIUM 100 MG CAPSULE PO SCH (21:08)
[2018-12-17 23:27] VITALS: BP 165/92
[2018-12-18] VITALS (7 sets, daily range): BP systolic 155–167; BP diastolic 83–103
[2018-12-18] MEDS ORDERED: CEFEPIME HCL 1 GM in DEXTROSE 5%-WATER 50 ML IV ONE ×2
[2018-12-18] MEDS ORDERED: SODIUM CHLORIDE 0.9% 250 ML IV ONE (03:15)
[2018-12-18] MEDS: MORPHINE SULFATE 2 MG/ML SYRINGE IVP PRN ×2 (05:18→09:18)
[2018-12-18] MEDS ORDERED: CEFEPIME HCL 1 GM in DEXTROSE 5%-WATER 50 ML IV SCH (08:00)
[2018-12-18] MEDS: DOCUSATE SODIUM 100 MG CAPSULE PO SCH (08:21)
[2018-12-18] MEDS: HEPARIN SODIUM,PORCINE 5,000 UNITS/ML VIAL SQ SCH (08:21)
[2018-12-18] MEDS ORDERED: PANTOPRAZOLE SODIUM 40 MG/VIAL IVP SCH (09:00)
[2018-12-18] MEDS ORDERED: LEVOFLOXACIN 500 MG TABLET PO SCH (11:30)
== END 2018-12-18 13:43 | DRG 133 ==
LOC: EDUNIT# 12:19 → EMS 12:21 → ICU 13:34
PROVIDERS: ADMIT Internal Medicine; ATTEND Internal Medicine
PROC: 5A1935Z Respiratory Ventilation, Less than 24 Consecutive Hours (ICD-10-PCS; principal; 2018-12-17)
PROC: 0BH17EZ Insertion of Endotracheal Airway into Trachea, Via Natural or Artificial Opening (ICD-10-PCS; 2018-12-17)
DX: J96.01 Acute respiratory failure with hypoxia (principal); J69.0 Pneumonitis due to inhalation of food and vomit; J44.9 Chronic obstructive pulmonary disease, unspecified; T17.920A Food in respiratory tract, part unspecified causing asphyxiation, initial encounter; F20.9 Schizophrenia, unspecified; F17.200 Nicotine dependence, unspecified, uncomplicated; I10 Essential (primary) hypertension; I48.91 Unspecified atrial fibrillation; F41.9 Anxiety disorder, unspecified; D64.9 Anemia, unspecified; F12.90 Cannabis use, unspecified, uncomplicated; X58.XXXA Exposure to other specified factors, initial encounter
CPT/HCPCS: 36600; 87081; 93005; 94002; 99291; G0378; J0692; J1644; J2270; J7050; J7060